=== PATIENT | female | born 1980 | race Caucasian/White ===

== ENCOUNTER → 2018-04-25 15:44 | Outpatient (CLI) | payer BC, SELFPAY ==
[2018-04-25 18:45] LABS: Estradiol 87.4 pg/mL; Progesterone Level 3.66 ng/mL (See Comment); T4 Free Direct 0.84 ng/dL (0.76-1.46); Thyroid Stim Hormone (TSH) 1.65 uIU/mL (0.358-3.74)
[2018-04-25 18:46] LABS: Hematocrit 40.6 % (37-47); Hemoglobin 13.1 g/dl (12.0-15.0); Mean Corp Hgb Conc 32.3 g/gl (32-36); Mean Corpuscular Hgb 27.2 pg (27.0-32.0); Mean Corpuscular Volume 84.4 fL (81-99); Mean Platelet Vol. 9.2 fl (6.2-12.0); Platelet Count 398 K/mm3 (150-450); RBC Distribution Width CV 12.6 % (11.6-14.6); RBC Distribution Width SD 38.7 fl (35.1-43.9); Red Blood Count 4.81 M/mm3 (4.2-5.4); White Blood Count 10.6 K/mm3 (4.4-11.0)
[2018-04-25 18:59] LABS: Scan Indicated on CBC? Y/N NO
[2018-04-25 19:10] LABS: Hemoglobin A1c 5.9 % (4.2-6.3)
[2018-04-25 19:27] LABS: hCG Titer Quant., Serum < 1 mIU/mL (<9 non-preg)
[2018-04-30 15:25] LABS: HPV Reflexed? NOT INDICATED
--- OUTSIDE RECORDS SUMMARY | 2018-06-11 21:24 | XMS RPT_ITS ---
:1980 Author Organization OHIP Care Team Providers Name Role Phone BREANA LOZANO Attending Unavailable BREANA LOZANO Referring Unavailable BREANA LOZANO Attending Unavailable BREANA LOZANO Referring Unavailable Ritika Swan Attending Unavailable Ritika Swan Attending Unavailable Ritika Swan Referring Unavailable Primay Care Physicia, No Primary Care Unavailable PROBLEMS PROBLEMS DATE TYPE CONDITION / CODE ATTENDING STATUS SOURCE 04/25/2018 Unknown N92.6 - Irregular Ritika Swan Active [facility] menstruation, [facility] unspecified / Hospital N92.6(ICD-10) Repository 04/25/2018 Unknown Z12.4 - Encounter Ritika Swan Active [facility] for screening for [facility] neoplasm of Repository cervix / Z12.4(ICD-10) PROCEDURES PROCEDURES No Procedure Records FoundRESULTS RESULTS TRANSVAGINAL Observed: 05/04/2018 Status: F Source: [place] NON- 1:48 PM [facility] REPOSITORY [facility] Imaging Services [address] [place] [address] Transvaginal Non- MR#: [id number] Acct: [id number] Name: MARY ANN SHRESTHA Rep #: [id number] : 1980 F 37 From: Roger Woods MD PCP: Care Physician, No Primary Status: REG CLI Study: Transvaginal Non- Date of Exam: 05/04/18 Exam# [id number] Ordering Dr: Ritika Swan MD STUDY: ULTRASOUND OF THE FEMALE PELVIS - COMPLETE REASON FOR EXAM: Female, 37 years old. Abnormal vaginal bleeding LMP: 03/05/2018 TECHNIQUE: Transabdominal imaging initially performed with subsequent transvaginal imaging needed for better characterization of the endometrial complex. TECHNICAL QUALITY: Adequate. COMPARISON: None. FINDINGS: The uterus is anteverted and is in a midline position. The uterus measures 10.3 x 4.6 x 5.6 cm. There is a Nabothian cyst of the cervix. The endometrium measures 5.4 mm in thickness, and is hyperechoic. There is no demonstrated endometrial mass. There is no demonstrated myometrial mass. I.U.D. - The patient does have an I.U.D., positioned in the upper uterine canal/fundus The right ovary is visualized. The right ovary measures 2.8 x 2.8 x 1.5 cm. There are multiple follicles of the right ovary without a dominant cyst. There is no visualized right adnexal mass or complex lesion. There is normal arterial and normal venous vascularity. The left ovary is visualized. The left ovary measures 3.1 x 1.5 x 1.5 cm. There is no left ovarian cyst or ovarian mass. There is no visualized left adnexal mass or complex lesion. There is normal arterial and normal venous vascularity. There is no fluid in the cul-de-sac. Visualized urinary bladder is unremarkable. US/Transvaginal Non- IMPRESSION: Normal female pelvis. IUD. Electronically Signed: Roger Woods MD at 10:29 EST , Service support , CC: No Primary Care Physician; Ritika Swan MD Supervisor Packing Room: Signed PELVIC (NON ) Observed: 05/04/2018 Status: F Source: [place] 1:48 PM [facility] [place] [facility] Imaging Services [address] [place] [address] Pelvic (Non ) MR#: [id number] Acct: [id number] Name: MARY ANN SHRESTHA Rep #: [id number] : 1980 F 37 From: Roger Woods MD PCP: Care Physician, No Primary Status: REG CLI Study: Pelvic (Non ) Date of Exam: 05/04/18 Exam# [id number] Ordering Dr: Ritika Swan MD STUDY: ULTRASOUND OF THE FEMALE PELVIS - COMPLETE REASON FOR EXAM: Female, 37 years old. Abnormal vaginal bleeding LMP: 03/05/2018 TECHNIQUE: Transabdominal imaging initially performed with subsequent transvaginal imaging needed for better characterization of the endometrial complex. TECHNICAL QUALITY: Adequate. COMPARISON: None. FINDINGS: The uterus is anteverted and is in a midline position. The uterus measures 10.3 x 4.6 x 5.6 cm. There is a Nabothian cyst of the cervix. The endometrium measures 5.4 mm in thickness, and is hyperechoic. There is no demonstrated endometrial mass. There is no demonstrated myometrial mass. I.U.D. - The patient does have an I.U.D., positioned in the upper uterine canal/fundus The right ovary is visualized. The right ovary measures 2.8 x 2.8 x 1.5 cm. There are multiple follicles of the right ovary without a dominant cyst. There is no visualized right adnexal mass or complex lesion. There is normal arterial and normal venous vascularity. The left ovary is visualized. The left ovary measures 3.1 x 1.5 x 1.5 cm. There is no left ovarian cyst or ovarian mass. There is no visualized left adnexal mass or complex lesion. There is normal arterial and normal venous vascularity. There is no fluid in the cul-de-sac. Visualized urinary bladder is unremarkable. US/Pelvic (Non ) IMPRESSION: Normal female pelvis. IUD. Electronically Signed: Roger Woods MD at 10:29 EST , Service support , CC: No Primary Care Physician; Ritika Swan MD Supervisor Packing Room: Signed FREE T3 Collected: 04/25/2018 Status: F Source: [place] 3:48 PM [facility] [place] TYPE CODE TESTS RESULT OUT OF RANGE REFERENCE UNITS LAB L501.65998 2.18-3.98 pg/mL Normal FREE T3 3.0 Performed By: #### L501.62454, L501.9520, L506.0400, L3300.1750 #### [facility] [address] [place], [place], [id number] THYROID STIM HORMONE Collected: 04/25/2018 Status: F Source: [place] (TSH) 3:48 PM [facility] [place] [facility] TYPE CODE TESTS RESULT OUT OF RANGE REFERENCE UNITS LAB L501.9520 0.358-3.74 uIU/mL Normal TSH 1.65 Performed By: #### L501.30968, L501.9520, L506.0400, L3300.1750 #### [facility] [address] [place], [place], [address] T4 FREE DIRECT Collected: 04/25/2018 Status: F Source: [place] 3:48 PM [facility] [place] TYPE CODE TESTS RESULT OUT OF RANGE REFERENCE UNITS LAB L506.0400 0.76-1.46 ng/dL Normal T4 FREE 0.84 DIRECT Performed By: #### L501.99783, L501.9520, L506.0400, L3300.1750 #### [facility] [address] [place], [place], [address] ESTRADIOL Collected: 04/25/2018 Status: F Source: [place] 3:48 PM [facility] [place] [facility] TYPE CODE TESTS RESULT OUT OF RANGE REFERENCE UNITS LAB L3300.1750 pg/mL Normal ESTRADIOL 87.4 Result Comment: NORMAL REFERENCE RANGES FEMALE FOLLICULAR 21.4 - 164.8 pg/mL MID-CYCLE PEAK 49.9 - 367.2 pg/mL LUTEAL 40.2 - 259.0 pg/mL POST-MENOPAUSAL ON MHT <11.0 - 462.1 pg/mL NOT ON MHT <11.0 - 58.3 pg/mL MALE <11.0 - 52.5 pg/mL NOTE: [facility] HAS CONFIRMED THE DRUG FULVETRANT (FASLODEX) MAY CAUSE FALSELY ELEVATED ESTRADIOL RESULTS WHEN USING THIS TEST METHOD. IF PATIENT IS TAKING FULVESTRANT AN ALTERNATIVE METHOD SHOULD BE USED TO DETERMINE ESTRADIOL CONCENTRATION. Performed By: #### L501.11316, L501.9520, L506.0400, L3300.1750 #### [facility] [address] [place], [address] TESTOSTERONE, SERUM TOTAL Collected: 04/25/2018 Status: F Source: [place] 3:48 PM [facility] [place] TYPE CODE TESTS RESULT OUT OF REFERENCE UNITS RANGE LAB L509.3000 ng/dL Testosterone Normal 20.15 Result Comment: NORMAL REFERENCE RANGES MALE AGE <50 123.06 - 813.86 ng/dL MALE AGE >50 89.98 - 780.10 ng/dL FEMALE PREMENOPAUSE AGE 21 - 60 9.01 - 47.94 ng/dL FEMALE POSTMENOPAUSE AGE 45 - 89 <7.00 - 45.62 ng/dL REFERENCE RANGE AND METHODOLOGY CHANGED 05/03/2017 Performed By: #### L509.3000, L509.4001 #### [facility] [address] [place], [address] PROGESTERONE LEVEL Collected: 04/25/2018 Status: F Source: [place] 3:48 PM [facility] [place] [facility] TYPE CODE TESTS RESULT OUT OF REFERENCE UNITS RANGE LAB L509.4001 See Comment ng/mL Progesterone Normal 3.66 Result Comment: Progesterone Reference Table: UNITS Female: Follicular 0.15 - 1.40 ng/mL Luteal 3.34 - 25.56 ng/mL Mid-luteal 4.44 - 28.03 ng/mL Postmenopausal 0.0 - 0.73 ng/mL : 1st Trimester 11.22 - 90.00 ng/mL 2nd Trimester 25.55 - 89.40 ng/mL 3rd Trimester 48.40 -422.50 ng/mL Performed By: #### L509.3000, L509.4001 #### [facility] [address] [facility] [address] [place], [place], [id number] CBC-COMPLETE BLOOD CNT Collected: 04/25/2018 Status: F Source: [place] NO DIFF 3:48 PM [facility] [place] TYPE CODE TESTS RESULT OUT OF RANGE REFERENCE UNITS LAB L100.1000 4.4-11.0 K/mm3 Normal WBC 10.6 LAB L100.1200 4.2-5.4 M/mm3 Normal RBC 4.81 LAB L100.1300 12.0-15.0 g/dl Normal HGB 13.1 LAB L100.1400 37-47 % Normal HCT 40.6 LAB L100.1500 81-99 fL Normal MCV 84.4 LAB L100.1600 27.0-32.0 pg Normal MCH 27.2 LAB L100.1700 32-36 g/gl Normal MCHC 32.3 LAB L100.1810 11.6-14.6 % Normal RDW CV 12.6 LAB L100.1820 35.1-43.9 fl Normal RDW SD 38.7 LAB L100.1900 150-450 K/mm3 Normal PLT 398 LAB L100.2000 6.2-12.0 fl Normal MPV 9.2 Performed By: #### L100.0500 #### [facility] [address], [place], [id number] HEMOGLOBIN A1C Collected: 04/25/2018 Status: F Source: [place] 3:48 PM [facility] [place] TYPE CODE TESTS RESULT OUT OF RANGE REFERENCE UNITS LAB L501.9985 4.2-6.3 % Normal HGB A1C 5.9 Performed By: #### L501.9985 #### [facility] [address] [place], [place], [id number] HCG TITER QUANT., Collected: 04/25/2018 Status: F Source: [place] SERUM 3:48 PM [facility] [place] Order Comment: Date of Last Menstrual Period? 03/05/18 TYPE CODE TESTS RESULT OUT OF RANGE REFERENCE UNITS LAB L700.8000 <9 non-preg mIU/mL Normal HCG < 1 QUANT. 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 of containers..01 ThinPrep Vial TYPE CODE TESTS RESULT OUT OF RANGE REFERENCE UNITS LAB L7400.0800 . Normal DIAGN Comment Result Comment: NEGATIVE FOR INTRAEPITHELIAL LESION AND MALIGNANCY. LAB L7400.0900 . Normal ADEQ Comment Result Comment: Satisfactory for evaluation. Endocervical and/or squamous metaplastic cells (endocervical component) are present. LAB L7400.1400 . Normal PERFORM Comment Result Comment: Bree Soto Pack Room Operator (ASCP) LAB L7400.2575 . Normal TEST METHOD Comment Result Comment: This liquid based ThinPrep(R) pap test was screened with the use of an image guided system. LAB L7400.2600 . Normal . COMM LAB L7400.2700 . Normal PAPSMR Comment Result Comment: The Pap smear is a screening test designed to aid in the detection of premalignant and malignant conditions of the uterine cervix. It is not a diagnostic procedure and should not be used as the sole means of detecting cervical cancer. Both false-positive and false-negative reports do occur. LAB L7400.2800 . Normal HPV RFLX Comment Result Comment: The HPV DNA reflex criteria were not met with this specimen result therefore, no HPV testing was performed. Performed at: - [facility] [id number] Manager Distribution: Veronica Gamino MD, Phone: [phone] Performed By: #### L7400.0350 #### [facility] (refer to report for specific site) refer to report for address and phone number PROGRESS Observed: 01/24/2018 Status: COMPLETED Source: [place] 4:06 PM [facility] REPOSITORY O ID: [id number] Author: Breana Lozano Service: (none) Author Type: Physician Type: Progress Notes Filed: 01/24/2018 5:19 PM Note Text: Headache Center - Follow-up Visit ASSESSMENT: 37 year old female with history significant for depression, anxiety, HTN, migraine without aura, and incidental borderline Chiari. Her migraines have remained significantly improved from a very high frequency on Topamax, but have again converted back to chronic migraine in the setting of trying to wean off Topamax (some side effects and prefers no pills). ? PLAN: (Please see typed patient instructions for detailed instructions) --->?Acute Treatment: -Maxalt vs. Frova. ?? --->?Preventive Treatment: -Change Topamax to Trokendi for now. -Options discussed, Botox, Aimovig. Would like to try Botox, so we'll send prior auth. ?? --->?Headache education was done. Discussed lifestyle modification including increased oral hydration, decreased caffeine, exercise and stress management. Discussed treatment options including preventive and acute medications, natural supplements. Discussed medication overuse headache and to limit use of acute treatments to no more than 2 days/week or 10 days/month. Discussed medication side effects, adverse reactions and drug interactions. Written educational materials and patient instructions outlining all of the above were given. ?? --->?Follow-up: When Botox approved. Last visit: 07/19/17 Interval Headache Hx: Was doing very well, about 2 migraines per month. We have been trying to wean off Topamax, but only down to 50 mg qhs from 100 mg bid. Migraines have returned to daily since coming down on the dose. Was having some cognitive and paresthesia side effects, and prefers no pills. MEDS: Current Outpatient Prescriptions: cyanocobalamin, vitamin B-12, (VITAMIN B-12 ORAL) Take by mouth once daily. frovatriptan (FROVA) 2.5 mg tablet Take 1 tab at migraine onset. May repeat once in 2 hours if needed. Give max allowed per insurance. rizatriptan (MAXALT) 10 mg tablet 1 tab at earliest sign of migraine. May repeat once in 2 hours if needed. Give max allowed per insurance. topiramate (TOPAMAX) 100 mg tablet Take 1 tablet by mouth twice daily. levonorgestrel (MIRENA) 20 mcg/24 hour (5 years) IUD 1 Each by INTRAUTERINE route one time only. No current facility-administered medications for this visit. REVIEW OF SYSTEMS: Review of system : unchanged from the previous visit (sleep patterns, mood, energy, appetite, stress, exercising). Physical Examination: BP 129/92 Pulse 91 Wt 107.5 kg (237 lb) BMI 41.98 kg/m? GEN: Alert. NAD. Normal affect. Cooperative. NEUROLOGICAL: Alert and oriented. Attentive. Thought process and content unremarkable. Follows commands appropriately. Speech fluent. Stable primary gait. Breana Lozano DO [facility] [place] Department of Neurology [place] [facility] [place] - [facility] Chronic Pain Medicine [address] [place] [address] Pager [phone] Total time in minutes spent with patient, reviewing records, imaging, labs, and documentin with more than 50% of the time spent in patient education/counselling/coordinating care with the patient. cc: Flora Mari MD [address] [facility] [place] [address] CNOV Observed: 01/24/2018 Status: COMPLETED Source: [place] 3:40 PM [facility] REPOSITORY Office Visit (NEURBR) MARY ANN SHRESTHA ([id number]) 1980 F Date Time Provider Department 01/24/18 3:40 PM BREANA LOZANO During your visit today, we recorded the following information about you: Pulse Blood pressure Weight 91/minute 129/92 107.5 kg Braena Lozano DO 01/24/2018 5:19 PM Signed Headache Center - Follow-up Visit ASSESSMENT: 37 year old female with history significant for depression, anxiety, HTN, migraine without aura, and incidental borderline Chiari. Her migraines have remained significantly improved from a very high frequency on Topamax, but have again converted back to chronic migraine in the setting of trying to wean off Topamax (some side effects and prefers no pills). ? PLAN: (Please see typed patient instructions for detailed instructions) --->?Acute Treatment: -Maxalt vs. Frova. ?? --->?Preventive Treatment: -Change Topamax to Trokendi for now. -Options discussed, Botox, Aimovig. Would like to try Botox, so we'll send prior auth. ?? --->?Headache education was done. Discussed lifestyle modification including increased oral hydration, decreased caffeine, exercise and stress management. Discussed treatment options including preventive and acute medications, natural supplements. Discussed medication overuse headache and to limit use of acute treatments to no more than 2 days/week or 10 days/month. Discussed medication side effects, adverse reactions and drug interactions. Written educational materials and patient instructions outlining all of the above were given. ?? --->?Follow-up: When Botox approved. Last visit: 07/19/17 Interval Headache Hx: Was doing very well, about 2 migraines per month. We have been trying to wean off Topamax, but only down to 50 mg qhs from 100 mg bid. Migraines have returned to daily since coming down on the dose. Was having some cognitive and paresthesia side effects, and prefers no pills. MEDS: Current Outpatient Prescriptions: cyanocobalamin, vitamin B-12, (VITAMIN B-12 ORAL) Take by mouth once daily. frovatriptan (FROVA) 2.5 mg tablet Take 1 tab at migraine onset. May repeat once in 2 hours if needed. Give max allowed per insurance. rizatriptan (MAXALT) 10 mg tablet 1 tab at earliest sign of migraine. May repeat once in 2 hours if needed. Give max allowed per insurance. topiramate (TOPAMAX) 100 mg tablet Take 1 tablet by mouth twice daily. levonorgestrel (MIRENA) 20 mcg/24 hour (5 years) IUD 1 Each by INTRAUTERINE route one time only. No current facility-administered medications for this visit. REVIEW OF SYSTEMS: Review of system : unchanged from the previous visit (sleep patterns, mood, energy, appetite, stress, exercising). Physical Examination: BP 129/92 Pulse 91 Wt 107.5 kg (237 lb) BMI 41.98 kg/m? GEN: Alert. NAD. Normal affect. Cooperative. NEUROLOGICAL: Alert and oriented. Attentive. Thought process and content unremarkable. Follows commands appropriately. Speech fluent. Stable primary gait. Breana Lozano DO [facility] [place] Department of [facility] [address] [place] [address] Pager [phone] Total time in minutes spent with patient, reviewing records, imaging, labs, and documentin with more than 50% of the time spent in patient education/counselling/coordinating care with the patient. cc: Flora Mari MD [address] [place], [place] [id number] Referring Provider: BREANA LOZANO [[id number]] Allergies As of Date: 01/24/2018 (No Known Allergies) Date Reviewed: 01/24/2018 Reviewed by: Breana Lozano - Fully Assessed Reason for Visit: Follow Up [171] Cmt: migraines Primary Visit Diagnosis:Chronic migraine without aura, with intractable migraine, so stated, with status migrainosus [G43.711] Other Visit Diagnosis:Intractable chronic migraine without aura and without status migrainosus [G43.719] Order(s):topiramate (TROKENDI XR) 100 mg [id number] 100 mg at bedtime and continue.Disp: 30 capsuleRfl: 11 rizatriptan (MAXALT) 10 mg tablet1 tab at earliest sign of migraine. May repeat once in 2 hours if needed. Give max allowed per insurance.Disp: 9 tabletRfl: 11 frovatriptan (FROVA) 2.5 mg tabletTake 1 tab at migraine onset. May repeat once in 2 hours if needed. Give max allowed per insurance.Disp: 9 tabletRfl: 11 Prescriptions as of 01/24/2018 Sig: VITAMIN B-12 ORAL Take by mouth once daily. RIZATRIPTAN 10 MG TABLET 1 tab at earliest sign of leona* FROVATRIPTAN 2.5 MG TABLET Take 1 tab at migraine onset.* LEVONORGESTREL 20 MCG/24 HR (* 1 Each by INTRAUTERINE route * TOPIRAMATE XR 100 MG CAPSULE,* Take 100 mg at bedtime and co* Problem List As Of Date 01/24/2018 Noted Resolved Gastroesophageal reflux disease [K21.9] INVALID FOR* Migraine without aura and without status migrai*INVALID FOR* Occipital neuralgia of right side [M54.81] INVALID FOR* Vitamin D deficiency [E55.9] INVALID FOR* Chronic migraine without aura, with intractable*INVALID FOR* Intractable chronic migraine without aura and w*INVALID FOR* Prescriptions ordered this encounter Disp Refills Start End TOPIRAMATE XR 100 MG CAPSULE,EXTENDE* 30 c* 11 01/24/2018 Class: Print RX Sig: Take 100 mg at bedtime and continue. RIZATRIPTAN 10 MG TABLET 9 ta* 11 01/24/2018 Si tab at earliest sign of migraine. May repeat once in 2 hours if needed. Give max allowed per insurance. FROVATRIPTAN 2.5 MG TABLET 9 ta* 11 01/24/2018 Sig: Take 1 tab at migraine onset. May repeat once in 2 hours if needed. Give max allowed per insurance. Medications Discontinued During This Encounter topiramate (TOPAMAX) 100 mg tablet 60 t* 11 03/01/2017 01/24/2018 Route: ORAL Sig: Take 1 tablet by mouth twice daily. Disc: Reason for discontinue is not on file. rizatriptan (MAXALT) 10 mg tablet 9 ta* 11 03/01/2017 01/24/2018 Si tab at earliest sign of migraine. May repeat once in 2 hours if needed. Give max allowed per insurance. Disc: Reason for discontinue is not on file. frovatriptan (FROVA) 2.5 mg tablet 9 ta* 11 05/04/2017 01/24/2018 Sig: Take 1 tab at migraine onset. May repeat once in 2 hours if needed. Give max allowed per insurance. Disc: Reason for discontinue is not on file. Follow-up and Disposition History Recorded Encounter Status:Closed by BREANA LOZANO DO on 01/24/18 PROGRESS Observed: 07/19/2017 Status: COMPLETED Source: [place] 4:19 PM [facility] REPOSITORY O ID: [id number] Author: Breana Lozano Service: (none) Author Type: Physician Type: Progress Notes Filed: 07/19/2017 5:07 PM Note Text: Headache Center - Follow-up Visit ASSESSMENT: 36 year old female with history significant for depression, anxiety, HTN, migraine without aura, and incidental borderline Chiari. Her migraines have remained significantly improved from a very high frequency on Topamax. ? PLAN: (Please see typed patient instructions for detailed instructions) ---> Acute Treatment: -Maxalt vs. Frova. ?? ---> Preventive Treatment: -Topamax 100 mg bid. We discussed how to try to wean off when as she thinks she is ready to try. ?? ---> Headache education was done. Discussed lifestyle modification including increased oral hydration, decreased caffeine, exercise and stress management. Discussed treatment options including preventive and acute medications, natural supplements. Discussed medication overuse headache and to limit use of acute treatments to no more than 2 days/week or 10 days/month. Discussed medication side effects, adverse reactions and drug interactions. Written educational materials and patient instructions outlining all of the above were given. ?? ---> Follow-up: 6 months Last visit: 08/10/16 Interval Headache Hx: Doing well. Getting 2-3 migraines per month. The migraines that start in the R occipital do not respond to Maxalt, but they do respond to Frova. These are also longer duration migraines. Maxalt works for the R frontal onset migraines, but so much for the posterior onset migraines. We tried Frova because she started to have long duration migraines. MEDS: Current Outpatient Prescriptions: frovatriptan (FROVA) 2.5 mg tablet Take 1 tab at migraine onset. May repeat once in 2 hours if needed. Give max allowed per insurance. rizatriptan (MAXALT) 10 mg tablet 1 tab at earliest sign of migraine. May repeat once in 2 hours if needed. Give max allowed per insurance. topiramate (TOPAMAX) 100 mg tablet Take 1 tablet by mouth twice daily. levonorgestrel (MIRENA) 20 mcg/24 hour (5 years) IUD 1 Each by INTRAUTERINE route one time only. No current facility-administered medications for this visit. REVIEW OF SYSTEMS: Review of system : unchanged from the previous visit (sleep patterns, mood, energy, appetite, stress, exercising). Physical Examination: BP 129/87 Pulse 84 Wt 103.9 kg (229 lb) BMI 40.57 kg/m2 GEN: Alert. NAD. Normal affect. Cooperative. NEUROLOGICAL: Alert and oriented. Attentive. Thought process and content unremarkable. Follows commands appropriately. Speech fluent. Stable primary gait. Breana Lozano D.O. [facility] [place] [facility] Department of Neurology Pager: [phone] Total time in minutes spent with patient, reviewing records, imaging, labs, and documentin with more than 50% of the time spent in patient education/counselling/coordinating care with the patient. cc: Flora Mari MD [address] [place] [address] CNOV Observed: 07/19/2017 Status: COMPLETED Source: [facility] 4:00 PM [facility] Office Visit (NEURBR) MARY ANN SHRESTHA ([id number]) 1980 F Date Time Provider Department 07/19/17 4:00 PM BREANA LOZANO NEURBR During your visit today, we recorded the following information about you: Pulse Blood pressure Weight 84/minute 129/87 103.9 kg Breana Lozano DO 07/19/2017 5:07 PM [facility] - Follow-up Visit ASSESSMENT: 36 year old female with history significant for depression, anxiety, HTN, migraine without aura, and incidental borderline Chiari. Her migraines have remained significantly improved from a very high frequency on Topamax. ? PLAN: (Please see typed patient instructions for detailed instructions) ---ANDgt; Acute Treatment: -Maxalt vs. Frova. ?? ---ANDgt; Preventive Treatment: -Topamax 100 mg bid. We discussed how to try to wean off when as she thinks she is ready to try. ?? ---ANDgt; Headache education was done. Discussed lifestyle modification including increased oral hydration, decreased caffeine, exercise and stress management. Discussed treatment options including preventive and acute medications, natural supplements. Discussed medication overuse headache and to limit use of acute treatments to no more than 2 days/week or 10 days/month. Discussed medication side effects, adverse reactions and drug interactions. Written educational materials and patient instructions outlining all of the above were given. ?? ---ANDgt; Follow-up: 6 months Last visit: 08/10/16 Interval Headache Hx: Doing well. Getting 2-3 migraines per month. The migraines that start in the R occipital do not respond to Maxalt, but they do respond to Frova. These are also longer duration migraines. Maxalt works for the R frontal onset migraines, but so much for the posterior onset migraines. We tried Frova because she started to have long duration migraines. MEDS: Current Outpatient Prescriptions: frovatriptan (FROVA) 2.5 mg tablet Take 1 tab at migraine onset. May repeat once in 2 hours if needed. Give max allowed per insurance. rizatriptan (MAXALT) 10 mg tablet 1 tab at earliest sign of migraine. May repeat once in 2 hours if needed. Give max allowed per insurance. topiramate (TOPAMAX) 100 mg tablet Take 1 tablet by mouth twice daily. levonorgestrel (MIRENA) 20 mcg/24 hour (5 years) IUD 1 Each by INTRAUTERINE route one time only. No current facility-administered medications for this visit. REVIEW OF SYSTEMS: Review of system : unchanged from the previous visit (sleep patterns, mood, energy, appetite, stress, exercising). Physical Examination: BP 129/87 Pulse 84 Wt 103.9 kg (229 lb) BMI 40.57 kg/m2 GEN: Alert. NAD. Normal affect. Cooperative. NEUROLOGICAL: Alert and oriented. Attentive. Thought process and content unremarkable. Follows commands appropriately. Speech fluent. Stable primary gait. Breana P. Lozano, D.O. [facility] Department of Neurology Pager: [phone] Total time in minutes spent with patient, reviewing records, imaging, labs, and documentin with more than 50% of the time spent in patient education/counselling/coordinating care with the patient. cc: Flora Mari MD [address] [place] [address] Breana Lozano DO 07/19/2017 4:31 PM Signed Acute Headache Treatment: (What to take ANDquot;as-neededANDquot; for headache) 1) Triptan at earliest sign of migraine. May repeat once in 2 hours. Do not use more than 10 days per month. Headache Preventive Treatment (What to take on a daily basis to try to lessen frequency and/or intensity of headache): *Please keep in mind that it takes 4-6 weeks for the medication to start working well and 2-3 months at the appropriate dose before deciding if it will be useful or not. If it is not helping at all by this time, then we will discuss other medications to try. Supplements may take 3-6 months until you see full effect. 1) Decrease Topamax by 50 mg every week alternating between morning, then bedtime, then morning, then bedtime. When you get down to 50 mg at bedtime for 1 week, then do 50 mg at bedtime every other night for 1 week and then stop. 2) Consider adding supplements: Magnesium citrate (other forms ok too) 400-800 mg daily +/- Coenzyme Q10 200 mg (or 150 mg) twice daily (or Qunol brand 100 mg daily) +/- Riboflavin (Vitamin B2) 400 mg daily (or 200 mg twice daily). You can sometimes buy supplements cheaper (especially Coenzyme Q10) at www.[employer] or at [employer]. General Headache Instructions: 1) Maintain a headache diary; learn to identify and avoid triggers. 2) Limit use of acute treatments (pzkz-dkm-bkxhpkd medications, triptans, etc.) to no more than 2 days per week or 10 days per month to prevent medication overuse headache (rebound headache). 3) Follow a regular schedule (including weekends and holidays) for the next 6 weeks: A) Don't skip meals. B) 8 hours of sleep nightly. C) Avoid the following common headache triggers: -Caffeine (coffee, chocolate, tea, cola/pop/soda (7-up, Sprite, Paula Mist, Jeny Deepa, Mug/A+W Root Beer, Minute Maid [place], Slice are okay)) -Foods containing nitrates (deli meat, ham, song, sausage, hot dogs) -Tyramine (aged cheese; can only have Micronesian cheese, cottage cheese, Velveeta and fresh mozarella (most pizza uses aged mozarella)) -MSG (Japanese/ foods, Doritos, all flavored chips and Ramen noodles) -Nutrasweet and artificial sweeteners D) Minimize stress. E) Exercise 30 minutes per day. Being overweight is associated with a 5 times increased risk of chronic migraine. F) Keep well hydrated and drink 6-8 glasses of water per day. 4) Initiate non-pharmacologic measures at the earliest onset of your headache. A) Rest and quiet in a cool, dark environment. B) Relax and reduce stress. C) Cold compress to head (place a dry washcloth to forehead, cover with a blue freezer packet and use a headband to press the freezer packet across the forehead and temples). 5) Don't wait!! Take the maximum allowable dosage of prescribed medication at the very earliest sign of headache. 6) Compliance: Take prescribed medication regularly as directed and at the first sign of a headache. 7) Communicate: Call your physician when problems arise, especially if your headaches change, increase in frequency/severity, or become associated with neurological symptoms (weakness, numbness, slurred speech, etc.). 8) Headache/pain management therapies: Consider various complementary methods, including medication, behavioral therapy, psychological counselling, biofeedback, massage therapy, acupuncture, and other modalities. Such measures may reduce the need for medications. Counseling for pain management, where patients learn to function and ignore/minimize their pain, seems to work very well. 9) Recommend changing family's attention and focus away from patient's headaches. Instead, emphasize daily activities. If first question of day is 'How are your headaches/Do you have a headache today?', then patient will constantly think about headaches, thus making them worse. Goal is to re-direct attention away from headaches, toward daily activities and other distractions. Avoiding Medication Overuse Headache (Rebound Headache): Based on current research, the types of medications and their frequency of use which converts a previously episodic headache (particularly migraine) into a chronic daily headache (any headache occurring 15 or more days per month for at least 4 hours per day) are as follows: ---ANDgt; Over the counter medications, NSAIDS and combination analgesics: -More than 2 days per week, or more than 10 days per month. -These include medications such as Acetaminophen (Tylenol), Naproxen (Aleve), Ibuprofen (Advil, Motrin), Acetaminophen/Caffeine (Excedrin), Acetaminophen/Dichloralphenazone/Isometheptene (Midrin), Aspirin (ok to continue if taking for medical reasons), cold remedies and sleep-promoting agents, among others. ---ANDgt; Triptans: -More than 2 days per week, or more than 10 days per month. -These include Sumatriptan (Imitrex), Sumatriptan/Naproxen (Treximet), Rizatriptan (Maxalt), Almotriptan (Axert), Zolmitriptan (Zomig), Eletriptan (Relpax), Naratriptan (Amerge), Frovatriptan (Frova). ---ANDgt; Opiates/Opioids (Narcotics): -8 days or more per month. Some research suggests that even infrequent use of these medications makes migraine specific medications such as triptans and NSAIDs less effective. -These include any narcotics such as Acetaminophen/Hydrocodone (Vicodin), Acetaminophen/Oxycodone (Percocet), Acetaminophen/Propoxyhene (Darvocet), Acetaminophen/Codeine (Tylenol #3, #4), Tramadol (Ultram), Acetaminophen/Tramadol (Ultracet), Oxycodone (OxyContin), Hydromorphone (Dilaudid), Fentanyl, Butorphanol (Stadol), Morphine or any form of a Morphine derivative. ---ANDgt; Butalbital containing medications: -5 or more days per month. As you can see, these are the worst offenders. -These include Acetaminophen/Butalbital/Caffeine (Fioricet, Esgic) Acetaminophen/Butalbital/Caffeine/Codeine (Fioricet with Codeine), Aspirin/Butalbital/Caffeine (Fiorinal), Aspirin/Butalbital/Caffeine/Codeine (Fiorinal with Codeine). Vitamins and herbs that show potential for migraine prevention: Magnesium: Magnesium (250 mg twice a day or 500 mg at bed) has a relaxant effect on smooth muscles such as blood vessels. We often give intravenous magnesium to patients who come into the emergency department for migraine because it helps to break the migraine. Three trials found 40-90% average headache reduction when used as a preventative. Magnesium also demonstrated the benefit in menstrually related migraine. Magnesium is part of the messenger system in the serotonin cascade and it is a good muscle relaxant. It is also useful for constipation which can be a side effect of other medications used to treat migraine. Good sources include nuts, whole grains, and tomatoes. Coenzyme Q10: This is present in almost all cells in the body and is critical component for the conversion of energy. Recent studies have shown that a nutritional supplement of CoQ10 can reduce the frequency of migraine attacks by improving the energy production of cells as with riboflavin. Doses of 200 mg (or 150 mg) twice a day have been shown to be effective. Riboflavin (Vitamin B2): 200 mg twice a day (or 400 mg daily). This vitamin assists nerve cells in the production of ATP, a principal energy storing molecule. It is necessary for many chemical reactions in the body. There have been at least 3 clinical trials of riboflavin using 400 mg per day all of which suggested that migraine frequency can be decreased. All 3 trials showed significant improvement in over half of migraine sufferers. The supplement is found in bread, cereal, milk, meat, and poultry. Most Americans get more riboflavin than the recommended daily allowance, however riboflavin deficiency is not necessary for the supplements to help prevent headache. Feverfew: Feverfew is a common garden herb [place] and popular in [place] as a treatment for disorders typically controlled by aspirin. The mechanism of action is unknown but is believed to be related to a chemical called parthenolide which helps the body use serotonin more effectively. Serotonin helps prevent migraine and assists with resolution when it occurs. Parthenolide also inhibits the release of histamine which is linked to pain and inflammation. Consistency of active ingredients in different products can be a problem. Some formulations don't have the active ingredient (parthenolide) that prevents migraine. A parthenolide content of 0.2% is generally recommended. Typical dosage is one capsule 3 times a day. Butterbur: This is an extract derived from the petisides orlyus root, which has been used for medicinal purposes since ancient times. A recent study found that 75 mg daily given over 4 months reduced headache frequency by 50% or more in over two thirds of the 245 patient studied. The 50 mg dose showed no significant effect. Side effects were infrequent, and the most common and unusual includes burping/belching. Raw butterbur root contains toxic chemicals that must be filtered out during the manufacturing process. To be sure you are choosing a safe product. Look for a formulation that does not contain pyrrolizidine alkaloids which are toxic to the liver. Melatonin: Increasing evidence shows correlation between melatonin secretion and headache conditions. Melatonin supplementation has shown decreased headache intensity and duration. It is widely used as a sleep aid. Sleep is nature's way of dealing with migraine. A dose of 3 mg is recommended to start for headaches including cluster headache. Higher doses up to 15 mg has been reviewed for use in Cluster headache and have been used. The rationale behind using melatonin for cluster is that many theories regarding the cause of Cluster headache center around the disruption of the normal circadian rhythm in the brain. This helps restore the normal circadian rhythm. It should be taken at least 2 hours before bedtime. Jeny: Jeny has a small amount of anti-histamine and anti-inflammatory action which may help headache. It is primarily used for nausea and may aid in the absorption of other medications. HEADACHE EXPECTATIONS: There are many types of headaches, and only a rare few in which complete relief can be expected. In general, there is no cure for headache, especially migraine based headaches. There is nothing available that completely prevents headaches from occurring, breaking through, or having periodic flare-ups and fluctuations. Regardless of what you are using on a daily basis for prevention, episodic headaches should still be expected, and periods where frequency may escalate and fluctuate are unavoidable. There is no quick fix for most headaches. Furthermore, the longer you have had high frequency headaches (such as chronic daily headache), the longer it will likely take to expect any improvement. In fact, some people will never improve, regardless of how many medications or other treatments we try. Our treatment strategy is to evaluate for possible causes of your headache, although testing is usually always normal, even in cases of daily continuous headaches for years. Most types of headache such as migraine are electrical brain disorders (similar to how epilepsy is an electrical brain disorders). Therefore, there is no testing that will reveal this ANDquot;dysfunctional electrical circuitryANDquot; such on MRI, or other testing. We try to find a medication that may help lessen the frequency and/or severity of your headaches. The goal is not to completely stop them from happening, although if that happens, great! Different people respond to different medications, and some people just don't respond to anything, so it's usually a matter of trying different options. We can not predict if or when exactly you will respond to a treatment that we provide. Preventive headache medications take 4-6 weeks to start working, and 2-3 months to see full effect, assuming you reach an effective dose. Therefore, calling or messaging frequently because you have a headache flare prior to the 3 month renaldo is unlikely to change anything, and unfortunately there is nothing available that will expedite this, so please try to avoid this. Our recommendation will generally be to give it adequate time first. If you are unable to wait it out for medications to work, we can also try IV infusions for some temporary relief. Or, we offer our 3 week outpatient chronic daily headache program (IMATCH) to help you better learn how to function and deal with chronic headache issues. In general, the best that preventive medications or other treatments (including Botox) are able to offer in migraine management (variable in other headache types) is a 50% improvement in frequency and/or severity of headache. That is our goal, and any additional benefit is considered a bonus. Some people do significantly better than this, others do not get close to this. Therefore, if your headaches are not improving by at least 3 months on your preventive strategy, contact us and we can discuss further adjustments. Keep in mind that complete headache cure is not a realistic expectation. MYCHART, PHONE CALLS, TESTING RESULTS: Please understand that we rely heavily and work closely with our nursing team to assist us in managing your telephone calls, test results, and refills. Due to the volume of daily phone calls, messages, and schedules, it is impossible for us to personally call patients back through the day. We do receive your messages, which are very important to us, and respond most often through our nursing team to help relay our message and response back to you. The main way of communication is by MyChart rather than phone lines, so if you have not signed up, please do so. MyChart is also the way that you can review your labs and testing. We are not able to contact everyone to tell them results are normal. If you do not hear back from us regarding testing you have had, it should be considered normal or within normal range. If you have any questions about the results, you are free to message us. [employer] is meant for simple questions regarding medications, possible side effects, or other simple straight forward questions in limited sentences, rather than multiple paragraphs of discussion. [employer] is not meant for, safe, or efficient for these complex questions, extensive questions, extensive medication adjustments, complex new symptoms or concerns. These issues beyond simple questions require a follow up visit with myself, one of our physician assistants, nurse practitioners, or a Virtual Visit via computer or smart phone, as detailed further down. REFILLS: Please pay attention to when your refills will need to be renewed. Due to the volume of phone calls daily, this could potentially take a few days, although we certainly try to honor your refill requests as soon as we can. You should call at least 1 week in advance of needing a refill to ensure you do not run out of medication. Keep in mind that refill requests on Fridays may not be filled until the following week. BOTOX: If you are receiving Botox treatments, please check with your insurance company before and following each treatment appointment to ensure that you still have pre-approved coverage for your next Botox appointment in 3 months. If your coverage has run out, and a new prior authorization is required to continue Botox treatment, please call our office and let us know so that we can file the paperwork. Telemedicine is the newest ?virtual visit? that we are now offering to allow you to have a [id number] conversation with your doctor for 15 minutes (although this can extend further as needed), without the need for driving to our clinic, paying for parking, paying copays, paying for travel, stopping over for meals, etc. This is a self-pay option for which you will be charged $49, and you will need a computer or smartphone (with a built-in camera), should you wish to avail of this convenient alternative. If you are interested in the telemedicine visit, please let me know and we will facilitate that visit. I have included more detailed information below on how the virtual visit works. We look forward to serving your needs and answering your questions! REASON FOR A VIRTUAL ONLINE APPOINTMENT In order to provide you with the best care possible, we have recently begun using a technology to connect patients, providers, and family members through a ?Learn[employer]?-like connection for live audio and video communication. We are now using this as a way for patients to have a visit with a provider without the added costs of having to travel to our facility. This service, [facility], is easily accessible through your mobile device or a desktop/laptop with a browser and internet connection. HOW DO I GET STARTED? ON A DESKTOP OR LAPTOP COMPUTER WITH A WEBCAM CONNECTED: 1. Go to the URL: [email or web address] 2. Click on Sign Up and Create a patient account for yourself. 3. Please also follow the links to ?Test My Computer?. 4. Follow the steps suggested, testing your Internet Speed, Webcam, Microphone, Speaker, and your video software. 5. Please make sure your video software is up-to-date. This is a safe, [facility] approved download, and will not harm your computer. ON AN IPHONE, IPAD, OR ANDROID DEVICE: 1. Open up the [employer] or [employer] and search [facility] Online. 2. Download and Install the Application. 3. Tap on Sign Up and create a patient account for yourself. 4. Please use an e-mail address that you frequently check, as you will receive an e-mail appointment from [facility]. Find our user guide, here: [email or web address] Important: Don?t forget your password you choose during setup. For your personal records: Your E-mail Address Here: Your Password Here: YOUR ONLINE VIRTUAL VISIT 1. Once the visit is scheduled, you should plan to begin your visit at least 15 minutes prior to the start of your visit. 2. You can begin by opening the email you received to schedule this visit, click on ?Start Visit,? agree to the Terms of Use, and wait for your visit to start! 3. Agree to the Terms of Use, and wait for your visit to start! 4. When you join the virtual visit you will be connected to the provider. Please call [phone] prior to your visit if you have any questions regarding technology! Referring Provider: BREANA LOZANO [[id number]] Allergies As of Date: 07/19/2017 (No Known Allergies) Date Reviewed: 07/19/2017 Reviewed by: Breana Lozano - Fully Assessed Reason for Visit: Follow Up [171] Cmt: migraines Primary Visit Diagnosis:Migraine without aura and without status migrainosus, not intractable [G43.009] Other Visit Diagnosis:Migraine with aura and without status migrainosus, not intractable [G43.109] Prescriptions as of 07/19/2017 Sig: FROVATRIPTAN 2.5 MG TABLET Take 1 tab at migraine onset.* RIZATRIPTAN 10 MG TABLET 1 tab at earliest sign of leona* TOPIRAMATE 100 MG TABLET Take 1 tablet by mouth twice * LEVONORGESTREL 20 MCG/24 HR (* 1 Each by INTRAUTERINE route * Problem List As Of Date 07/19/2017 Noted Resolved Gastroesophageal reflux disease [K21.9] INVALID FOR* Migraine without aura and without status migrai*INVALID FOR* Occipital neuralgia of right side [M54.81] INVALID FOR* Vitamin D deficiency [E55.9] INVALID FOR* Other instructions from your clinician: Acute Headache Treatment: (What to take as-needed for headache) 1) Triptan at earliest sign of migraine. May repeat once in 2 hours. Do not use more than 10 days per month. Headache Preventive Treatment (What to take on a daily basis to try to lessen frequency and/or intensity of headache): *Please keep in mind that it takes 4-6 weeks for the medication to start working well and 2-3 months at the appropriate dose before deciding if it will be useful or not. If it is not helping at all by this time, then we will discuss other medications to try. Supplements may take 3-6 months until you see full effect. 1) Decrease Topamax by 50 mg every week alternating between morning, then bedtime, then morning, then bedtime. When you get down to 50 mg at bedtime for 1 week, then do 50 mg at bedtime every other night for 1 week and then stop. 2) Consider adding supplements: Magnesium citrate (other forms ok too) 400-800 mg daily +/- Coenzyme Q10 200 mg (or 150 mg) twice daily (or Qunol brand 100 mg daily) +/- Riboflavin (Vitamin B2) 400 mg daily (or 200 mg twice daily). You can sometimes buy supplements cheaper (especially Coenzyme Q10) at [employer] or at [employer]. General Headache Instructions: 1) Maintain a headache diary; learn to identify and avoid triggers. 2) Limit use of acute treatments (gwes-jzu-eyxzqmb medications, triptans, etc.) to no more than 2 days per week or 10 days per month to prevent medication overuse headache (rebound headache). 3) Follow a regular schedule (including weekends and holidays) for the next 6 weeks: A) Don't skip meals. B) 8 hours of sleep nightly. C) Avoid the following common headache triggers: -Caffeine (coffee, chocolate, tea, cola/pop/soda (7-up, Sprite, Paula Mist, Jeny Deepa, Mug/A+W Root Beer, Minute Maid [place], Slice are okay)) -Foods containing nitrates (deli meat, ham, song, sausage, hot dogs) -Tyramine (aged cheese; can only have Micronesian cheese, cottage cheese, Velveeta and fresh mozarella (most pizza uses aged mozarella)) -MSG (Japanese/ foods, Doritos, all flavored chips and Ramen noodles) -Nutrasweet and artificial sweeteners D) Minimize stress. E) Exercise 30 minutes per day. Being overweight is associated with a 5 times increased risk of chronic migraine. F) Keep well hydrated and drink 6-8 glasses of water per day. 4) Initiate non-pharmacologic measures at the earliest onset of your headache. A) Rest and quiet in a cool, dark environment. B) Relax and reduce stress. C) Cold compress to head (place a dry washcloth to forehead, cover with a blue freezer packet and use a headband to press the freezer packet across the forehead and temples). 5) Don't wait!! Take the maximum allowable dosage of prescribed medication at the very earliest sign of headache. 6) Compliance: Take prescribed medication regularly as directed and at the first sign of a headache. 7) Communicate: Call your physician when problems arise, especially if your headaches change, increase in frequency/severity, or become associated with neurological symptoms (weakness, numbness, slurred speech, etc.). 8) Headache/pain management therapies: Consider various complementary methods, including medication, behavioral therapy, psychological counselling, biofeedback, massage therapy, acupuncture, and other modalities. Such measures may reduce the need for medications. Counseling for pain management, where patients learn to function and ignore/minimize their pain, seems to work very well. 9) Recommend changing family's attention and focus away from patient's headaches. Instead, emphasize daily activities. If first question of day is 'How are your headaches/Do you have a headache today?', then patient will constantly think about headaches, thus making them worse. Goal is to re-direct attention away from headaches, toward daily activities and other distractions. Avoiding Medication Overuse Headache (Rebound Headache): Based on current research, the types of medications and their frequency of use which converts a previously episodic headache (particularly migraine) into a chronic daily headache (any headache occurring 15 or more days per month for at least 4 hours per day) are as follows: ---> Over the counter medications, NSAIDS and combination analgesics: -More than 2 days per week, or more than 10 days per month. -These include medications such as Acetaminophen (Tylenol), Naproxen (Aleve), Ibuprofen (Advil, Motrin), Acetaminophen/Caffeine (Excedrin), Acetaminophen/Dichloralphenazone/Isometheptene (Midrin), Aspirin (ok to continue if taking for medical reasons), cold remedies and sleep-promoting agents, among others. ---> Triptans: -More than 2 days per week, or more than 10 days per month. -These include Sumatriptan (Imitrex), Sumatriptan/Naproxen (Treximet), Rizatriptan (Maxalt), Almotriptan (Axert), Zolmitriptan (Zomig), Eletriptan (Relpax), Naratriptan (Amerge), Frovatriptan (Frova). ---> Opiates/Opioids (Narcotics): -8 days or more per month. Some research suggests that even infrequent use of these medications makes migraine specific medications such as triptans and NSAIDs less effective. -These include any narcotics such as Acetaminophen/Hydrocodone (Vicodin), Acetaminophen/Oxycodone (Percocet), Acetaminophen/Propoxyhene (Darvocet), Acetaminophen/Codeine (Tylenol #3, #4), Tramadol (Ultram), Acetaminophen/Tramadol (Ultracet), Oxycodone (OxyContin), Hydromorphone (Dilaudid), Fentanyl, Butorphanol (Stadol), Morphine or any form of a Morphine derivative. ---> Butalbital containing medications: -5 or more days per month. As you can see, these are the worst offenders. -These include Acetaminophen/Butalbital/Caffeine (Fioricet, Esgic) Acetaminophen/Butalbital/Caffeine/Codeine (Fioricet with Codeine), Aspirin/Butalbital/Caffeine (Fiorinal), Aspirin/Butalbital/Caffeine/Codeine (Fiorinal with Codeine). Vitamins and herbs that show potential for migraine prevention: Magnesium: Magnesium (250 mg twice a day or 500 mg at bed) has a relaxant effect on smooth muscles such as blood vessels. We often give intravenous magnesium to patients who come into the emergency department for migraine because it helps to break the migraine. Three trials found 40-90% average headache reduction when used as a preventative. Magnesium also demonstrated the benefit in menstrually related migraine. Magnesium is part of the messenger system in the serotonin cascade and it is a good muscle relaxant. It is also useful for constipation which can be a side effect of other medications used to treat migraine. Good sources include nuts, whole grains, and tomatoes. Coenzyme Q10: This is present in almost all cells in the body and is critical component for the conversion of energy. Recent studies have shown that a nutritional supplement of CoQ10 can reduce the frequency of migraine attacks by improving the energy production of cells as with riboflavin. Doses of 200 mg (or 150 mg) twice a day have been shown to be effective. Riboflavin (Vitamin B2): 200 mg twice a day (or 400 mg daily). This vitamin assists nerve cells in the production of ATP, a principal energy storing molecule. It is necessary for many chemical reactions in the body. There have been at least 3 clinical trials of riboflavin using 400 mg per day all of which suggested that migraine frequency can be decreased. All 3 trials showed significant improvement in over half of migraine sufferers. The supplement is found in bread, cereal, milk, meat, and poultry. Most Americans get more riboflavin than the recommended daily allowance, however riboflavin deficiency is not necessary for the supplements to help prevent headache. Feverfew: Feverfew is a common garden herb [place] and popular in [place] as a treatment for disorders typically controlled by aspirin. The mechanism of action is unknown but is believed to be related to a chemical called parthenolide which helps the body use serotonin more effectively. Serotonin helps prevent migraine and assists with resolution when it occurs. Parthenolide also inhibits the release of histamine which is linked to pain and inflammation. Consistency of active ingredients in different products can be a problem. Some formulations don't have the active ingredient (parthenolide) that prevents migraine. A parthenolide content of 0.2% is generally recommended. Typical dosage is one capsule 3 times a day. Butterbur: This is an extract derived from the petisides hybridus root, which has been used for medicinal purposes since ancient times. A recent study found that 75 mg daily given over 4 months reduced headache frequency by 50% or more in over two thirds of the 245 patient studied. The 50 mg dose showed no significant effect. Side effects were infrequent, and the most common and unusual includes burping/belching. Raw butterbur root contains toxic chemicals that must be filtered out during the manufacturing process. To be sure you are choosing a safe product. Look for a formulation that does not contain pyrrolizidine alkaloids which are toxic to the liver. Melatonin: Increasing evidence shows correlation between melatonin secretion and headache conditions. Melatonin supplementation has shown decreased headache intensity and duration. It is widely used as a sleep aid. Sleep is nature's way of dealing with migraine. A dose of 3 mg is recommended to start for headaches including cluster headache. Higher doses up to 15 mg has been reviewed for use in Cluster headache and have been used. The rationale behind using melatonin for cluster is that many theories regarding the cause of Cluster headache center around the disruption of the normal circadian rhythm in the brain. This helps restore the normal circadian rhythm. It should be taken at least 2 hours before bedtime. Jeny: Jeny has a small amount of anti-histamine and anti-inflammatory action which may help headache. It is primarily used for nausea and may aid in the absorption of other medications. HEADACHE EXPECTATIONS: There are many types of headaches, and only a rare few in which complete relief can be expected. In general, there is no cure for headache, especially migraine based headaches. There is nothing available that completely prevents headaches from occurring, breaking through, or having periodic flare-ups and fluctuations. Regardless of what you are using on a daily basis for prevention, episodic headaches should still be expected, and periods where frequency may escalate and fluctuate are unavoidable. There is no quick fix for most headaches. Furthermore, the longer you have had high frequency headaches (such as chronic daily headache), the longer it will likely take to expect any improvement. In fact, some people will never improve, regardless of how many medications or other treatments we try. Our treatment strategy is to evaluate for possible causes of your headache, although testing is usually always normal, even in cases of daily continuous headaches for years. Most types of headache such as migraine are electrical brain disorders (similar to how epilepsy is an electrical brain disorders). Therefore, there is no testing that will reveal this dysfunctional electrical circuitry such on MRI, or other testing. We try to find a medication that may help lessen the frequency and/or severity of your headaches. The goal is not to completely stop them from happening, although if that happens, great! Different people respond to different medications, and some people just don't respond to anything, so it's usually a matter of trying different options. We can not predict if or when exactly you will respond to a treatment that we provide. Preventive headache medications take 4-6 weeks to start working, and 2-3 months to see full effect, assuming you reach an effective dose. Therefore, calling or messaging frequently because you have a headache flare prior to the 3 month renaldo is unlikely to change anything, and unfortunately there is nothing available that will expedite this, so please try to avoid this. Our recommendation will generally be to give it adequate time first. If you are unable to wait it out for medications to work, we can also try IV infusions for some temporary relief. Or, we offer our 3 week outpatient chronic daily headache program (IMATCH) to help you better learn how to function and deal with chronic headache issues. In general, the best that preventive medications or other treatments (including Botox) are able to offer in migraine management (variable in other headache types) is a 50% improvement in frequency and/or severity of headache. That is our goal, and any additional benefit is considered a bonus. Some people do significantly better than this, others do not get close to this. Therefore, if your headaches are not improving by at least 3 months on your preventive strategy, contact us and we can discuss further adjustments. Keep in mind that complete headache cure is not a realistic expectation. MYCHART, PHONE CALLS, TESTING RESULTS: Please understand that we rely heavily and work closely with our nursing team to assist us in managing your telephone calls, test results, and refills. Due to the volume of daily phone calls, messages, and schedules, it is impossible for us to personally call patients back through the day. We do receive your messages, which are very important to us, and respond most often through our nursing team to help relay our message and response back to you. The main way of communication is by YouTabhart rather than phone lines, so if you have not signed up, please do so. YouTabhart is also the way that you can review your labs and testing. We are not able to contact everyone to tell them results are normal. If you do not hear back from us regarding testing you have had, it should be considered normal or within normal range. If you have any questions about the results, you are free to message us. MyChart is meant for simple questions regarding medications, possible side effects, or other simple straight forward questions in limited sentences, rather than multiple paragraphs of discussion. MyChart is not meant for, safe, or efficient for these complex questions, extensive questions, extensive medication adjustments, complex new symptoms or concerns. These issues beyond simple questions require a follow up visit with myself, one of our physician assistants, nurse practitioners, or a Virtual Visit via computer or smart phone, as detailed further down. REFILLS: Please pay attention to when your refills will need to be renewed. Due to the volume of phone calls daily, this could potentially take a few days, although we certainly try to honor your refill requests as soon as we can. You should call at least 1 week in advance of needing a refill to ensure you do not run out of medication. Keep in mind that refill requests on Fridays may not be filled until the following week. BOTOX: If you are receiving Botox treatments, please check with your insurance company before and following each treatment appointment to ensure that you still have pre-approved coverage for your next Botox appointment in 3 months. If your coverage has run out, and a new prior authorization is required to continue Botox treatment, please call our office and let us know so that we can file the paperwork. Telemedicine is the newest ?virtual visit? that we are now offering to allow you to have a [id number] conversation with your doctor for 15 minutes (although this can extend further as needed), without the need for driving to our clinic, paying for parking, paying copays, paying for travel, stopping over for meals, etc. This is a self-pay option for which you will be charged $49, and you will need a computer or smartphone (with a built-in camera), should you wish to avail of this convenient alternative. If you are interested in the telemedicine visit, please let me know and we will facilitate that visit. I have included more detailed information below on how the virtual visit works. We look forward to serving your needs and answering your questions! REASON FOR A VIRTUAL ONLINE APPOINTMENT In order to provide you with the best care possible, we have recently begun using a technology to connect patients, providers, and family members through a ?Skype?-like connection for live audio and video communication. We are now using this as a way for patients to have a visit with a provider without the added costs of having to travel to our facility. This service, [facility], is easily accessible through your mobile device or a desktop/laptop with a browser and internet connection. HOW DO I GET STARTED? ON A DESKTOP OR LAPTOP COMPUTER WITH A WEBCAM CONNECTED: 1. Go to the URL: [email or web address] 2. Click on Sign Up and Create a patient account for yourself. 3. Please also follow the links to ?Test My Computer?. 4. Follow the steps suggested, testing your Internet Speed, Webcam, Microphone, Speaker, and your video software. 5. Please make sure your video software is up-to-date. This is a safe, [facility] approved download, and will not harm your computer. ON AN IPHONE, IPAD, OR ANDROID DEVICE: 1. Open up the Terrie Store or SLEDVision and search [facility]. 2. Download and Install the Application. 3. Tap on Sign Up and create a patient account for yourself. 4. Please use an e-mail address that you frequently check, as you will receive an e-mail appointment from [facility]. Find our user guide, here: [email or web address] Important: Don?t forget your password you choose during setup. For your personal records: Your E-mail Address Here: Your Password Here: YOUR ONLINE VIRTUAL VISIT 1. Once the visit is scheduled, you should plan to begin your visit at least 15 minutes prior to the start of your visit. 2. You can begin by opening the email you received to schedule this visit, click on ?Start Visit,? agree to the Terms of Use, and wait for your visit to start! 3. Agree to the Terms of Use, and wait for your visit to start! 4. When you join the virtual visit you will be connected to the provider. Please call [phone] prior to your visit if you have any questions regarding technology! Disposition: Return in about 6 months (around 01/19/2018). Follow-up and Disposition History Recorded Encounter Status:Closed by BREANA LOZANO DO on 07/19/17 ALLERGIES ALLERGIES DATE TYPE / CODE NAME / CODE REACTION SEVERITY SOURCE Drug NO KNOWN [facility] Class/78611 ALLERGIES Main [place] 1003(SNOMED Repository CT) ENCOUNTERS ENCOUNTERS ADMIT/DISCHARGE ACCOUNT ADMITTING ENCOUNTER LOCATION SOURCE NUMBER CLASS 05/04/2018 [id number] [facility] ing:US Repository 04/25/2018 [id number] [facility] ing:WOBLAB Repository 01/24/2018/01/25/20 [id number] [address]ulatory [address] Repository 07/19/2017/07/20/19 [id number] Ambulatory [address] Repository PAYERS PAYERS ENCOUNTER GUARANTOR PAYER SUBSCRIBER SOURCE 05/04/2018 ALEETA A Primary ALEETA A Momo [id number] [address] Insurance:ANTHEMPolic [place] Number: [id number] [id number]: 330 [id number] Repository [phone] () Date:[id number] [address] [address]BJ: 05/04/2018 Secondary NOT GIVENUNK Momo Insurance:SELF PAY [facility] Number: Effective Repository Date:2018-04-25 04/25/2018 ALEETA A Primary ALEETA A [place] [id number] Insurance:ANTHEMPolic [place]: [place] Number: [id number] [id number]: 330 [id number] Repository [phone] () Date:[id number] [address]JR: 04/25/2018 Secondary NOT GIVENUNK [place] Insurance:SELF PAY [facility] Number: Effective Repository Date:2018-04-25
== END ==
PROVIDERS: Visit Provider Obstetrics & Gynecology
DX: Z12.4 Encounter for screening for malignant neoplasm of cervix (principal); N92.6 Irregular menstruation, unspecified
CPT/HCPCS: 36415; 82670; 83036; 84144; 84403; 84439; 84443; 84481; 84702; 85027; 88175; G0145

== ENCOUNTER → 2018-05-04 13:42 | Outpatient (CLI) | payer BC, SELFPAY ==
--- NOTE | 2018-05-04 13:47 | US_ITS ---
STUDY: ULTRASOUND OF THE FEMALE PELVIS - COMPLETE REASON FOR EXAM: Female, 37 years old. Abnormal vaginal bleeding LMP: 03/05/2018 TECHNIQUE: Transabdominal imaging initially performed with subsequent transvaginal imaging needed for better characterization of the endometrial complex. TECHNICAL QUALITY: Adequate. COMPARISON: None. FINDINGS: The uterus is anteverted and is in a midline position. The uterus measures 10.3 x 4.6 x 5.6 cm. There is a Nabothian cyst of the cervix. The endometrium measures 5.4 mm in thickness, and is hyperechoic. There is no demonstrated endometrial mass. There is no demonstrated myometrial mass. I.U.D. - The patient does have an I.U.D., positioned in the upper uterine canal/fundus The right ovary is visualized. The right ovary measures 2.8 x 2.8 x 1.5 cm. There are multiple follicles of the right ovary without a dominant cyst. There is no visualized right adnexal mass or complex lesion. There is normal arterial and normal venous vascularity. The left ovary is visualized. The left ovary measures 3.1 x 1.5 x 1.5 cm. There is no left ovarian cyst or ovarian mass. There is no visualized left adnexal mass or complex lesion. There is normal arterial and normal venous vascularity. There is no fluid in the cul-de-sac. Visualized urinary bladder is unremarkable. US/Pelvic (Non ) IMPRESSION: Normal female pelvis. IUD. Electronically Signed: Roger Woods MD at 10:29 EST , Service support ,
--- NOTE | 2018-05-04 13:48 | US_ITS ---
STUDY: ULTRASOUND OF THE FEMALE PELVIS - COMPLETE REASON FOR EXAM: Female, 37 years old. Abnormal vaginal bleeding LMP: 03/05/2018 TECHNIQUE: Transabdominal imaging initially performed with subsequent transvaginal imaging needed for better characterization of the endometrial complex. TECHNICAL QUALITY: Adequate. COMPARISON: None. FINDINGS: The uterus is anteverted and is in a midline position. The uterus measures 10.3 x 4.6 x 5.6 cm. There is a Nabothian cyst of the cervix. The endometrium measures 5.4 mm in thickness, and is hyperechoic. There is no demonstrated endometrial mass. There is no demonstrated myometrial mass. I.U.D. - The patient does have an I.U.D., positioned in the upper uterine canal/fundus The right ovary is visualized. The right ovary measures 2.8 x 2.8 x 1.5 cm. There are multiple follicles of the right ovary without a dominant cyst. There is no visualized right adnexal mass or complex lesion. There is normal arterial and normal venous vascularity. The left ovary is visualized. The left ovary measures 3.1 x 1.5 x 1.5 cm. There is no left ovarian cyst or ovarian mass. There is no visualized left adnexal mass or complex lesion. There is normal arterial and normal venous vascularity. There is no fluid in the cul-de-sac. Visualized urinary bladder is unremarkable. US/Transvaginal Non- IMPRESSION: Normal female pelvis. IUD. Electronically Signed: Roger Woods MD at 10:29 EST , Service support ,
== END ==
PROVIDERS: Referring Provider Obstetrics & Gynecology; Visit Provider Obstetrics & Gynecology
DX: N93.8 Other specified abnormal uterine and vaginal bleeding (principal)
CPT/HCPCS: 76830; 76856

== ENCOUNTER → 2018-09-06 12:03 | Outpatient (CLI) | payer BC, SELFPAY ==
[2018-09-06 13:01] LABS: Progesterone Level 0.53 ng/mL (See Comment)
== END ==
PROVIDERS: Visit Provider Obstetrics & Gynecology
DX: N91.2 Amenorrhea, unspecified (principal)
CPT/HCPCS: 36415; 82670; 84144

== ENCOUNTER → 2020-02-11 11:45 | Outpatient (CLI) | payer BC, SELFPAY ==
[2020-02-11 13:59] LABS: Vitamin D,25 Hydroxy 28.3 ng/mL
== END ==
PROVIDERS: Visit Provider Student in an Organized Health Care Education/Training Program
DX: E55.9 Vitamin D deficiency, unspecified (principal)
CPT/HCPCS: 36415; 82306

== ENCOUNTER → 2020-09-25 08:05 | Outpatient (CLI) | payer BC, SELFPAY ==
[2020-09-25 10:31] LABS: Hematocrit 41.8 % (37-47); Mean Corp Hgb Conc 31.1 g/dL (32-36); Mean Corpuscular Hgb 26.4 pg (27.0-32.0); Mean Corpuscular Volume 84.8 fL (81-99); Mean Platelet Vol. 8.9 fl (6.2-12.0); Platelet Count 404 K/mm3 (150-450); RBC Distribution Width CV 12.6 % (11.6-14.6); RBC Distribution Width SD 38.9 fl (35.1-43.9); Red Blood Count 4.93 M/mm3 (4.2-5.4); White Blood Count 8.9 K/mm3 (4.4-11.0)
[2020-09-25 11:16] LABS: ALB/GLOB Ratio 0.9 RATIO (0.9-2.4); AST(SGOT) 14 U/L (15-37); Alanine Aminotransfer ALT/SGPT 31 U/L (13-56); Albumin, Serum 3.8 g/dL (3.2-5.0); Alkaline Phosphatase 51 U/L (45-117); Anion Gap 6 (5-15); BUN 11 mg/dL (7-18); BUN/Creat Ratio 13.8 RATIO (10-20); Chloride 104 mmol/L (98-107); Cholesterol 165 mg/dL (200); EST Glomerular Filtration Rate 85 mL/min (>60); Est Glom Filt Rate - Afr Amer 102 mL/min (>60); Globulin 4.1 g/dL (2.2-4.2); Glucose 92 mg/dL (74-106); High Density Lipoprotein 40 mg/dL; Iron 83 ug/dL (50-170); Potassium 3.7 mmol/L (3.5-5.1); Protein, Total 7.9 g/dL (6.4-8.2); Sodium Level 137 mmol/L (136-145); T4 Free Direct 0.84 ng/dL (0.76-1.46); Thyroid Stim Hormone (TSH) 1.76 uIU/mL (0.358-3.74); Triglycerides 97 mg/dL; Very Low Density Lipoprotein 19 mg/dL (5-40)
[2020-09-26 08:03] LABS: Vitamin B12 444 pg/mL (211-911); Vitamin D,25 Hydroxy 24.4 ng/mL
== END ==
PROVIDERS: PCP Family Medicine; Referring Provider Family Medicine; Visit Provider Family Medicine
DX: R53.83 Other fatigue (principal); R79.89 Other specified abnormal findings of blood chemistry; Z13.220 Encounter for screening for lipoid disorders
CPT/HCPCS: 36415; 80053; 80061; 82306; 82533; 82607; 83540; 84439; 84443; 85027

== ENCOUNTER → 2021-02-03 14:12 | Outpatient (CLI) | payer BC, SELFPAY ==
[2021-02-03 18:11] LABS: Erythrocyte Sedimentation Rate 10 mm/hr (0-30)
[2021-02-03 18:28] LABS: Anion Gap 6 (5-15); BUN 8 mg/dL (7-18); BUN/Creat Ratio 8.4 RATIO (10-20); Calcium,Total 9.1 mg/dL (8.5-10.1); Chloride 105 mmol/L (98-107); Creatinine, Serum 0.95 mg/dL (0.55-1.02); EST Glomerular Filtration Rate 69 mL/min (>60); Est Glom Filt Rate - Afr Amer 84 mL/min (>60); Glucose 97 mg/dL (74-106); Potassium 3.8 mmol/L (3.5-5.1); Rheumatoid Factor < 10.0 IU/mL (<15); Sodium Level 138 mmol/L (136-145)
[2021-02-08 16:44] LABS: ANTINUCLEAR ANTIBODIES DIRECT Negative (Negative)
== END ==
PROVIDERS: PCP Family Medicine; Referring Provider Family Medicine; Visit Provider Family Medicine
DX: R21 Rash and other nonspecific skin eruption (principal); I10 Essential (primary) hypertension
CPT/HCPCS: 36415; 80048; 85652; 86038; 86431

== ENCOUNTER 2021-08-10 15:10 | Outpatient (CLI) | payer BC, SELFPAY ==
[2021-08-17 11:46] LABS: HPV APTIMA, High Risk Negative (Negative)
== END 2021-08-10 23:59 | disposition home or self-care (01) ==
PROVIDERS: PCP Family Medicine; Visit Provider Student in an Organized Health Care Education/Training Program
DX: Z12.4 Encounter for screening for malignant neoplasm of cervix (principal)
CPT/HCPCS: 87624; 88175; G0145

== ENCOUNTER 2021-08-17 12:31 | Outpatient (CLI) | payer BC, SELFPAY ==
--- NOTE | 2021-08-17 12:40 | BI_ITS ---
MAMMOGRAPHY - BILATERAL SCREENING REASON FOR EXAM: Female, 41 years old. Routine annual screening examination. PERTINENT HISTORY: Non-contributory. TECHNIQUE: Digital bilateral breast aide (3D mammographic acquisition) in the CC and MLO projections. 2-D mediolateral oblique (MLO) and craniocaudad (CC) views of both breasts were obtained. CAD: Full Field Digital Mammography with Computer Added Detection was performed. COMPARISON: None. Baseline examination. FINDINGS: Breast Composition: The breasts are heterogeneously dense, which may obscure small masses. There are no dominant masses or suspicious calcifications. Small bilateral axillary lymph nodes. No other significant abnormalities are identified. BI/SCRN MAMM (CAD)W/AIDE BILAT IMPRESSION: Negative screening mammogram. Yearly followup mammogram recommended. (A) ASSESSMENT CATEGORY: BIRADS Category 2: Benign. A letter regarding these results will be sent to the patient by the facility within 30 days. Approximately 10% of breast cancers are not detected by mammography. A normal mammogram should not delay biopsy of a clinically suspicious abnormality. [id number] Electronically Signed: Greyson Waters MD at 13:41 EDT ,
== END 2021-08-17 23:59 | disposition home or self-care (01) ==
LOC: OPBI 12:38
PROVIDERS: PCP Family Medicine; Referring Provider Student in an Organized Health Care Education/Training Program; Visit Provider Student in an Organized Health Care Education/Training Program
DX: Z12.31 Encounter for screening mammogram for malignant neoplasm of breast (principal)
CPT/HCPCS: 77063; 77067

== ENCOUNTER → 2021-09-13 | Outpatient (CLI) | payer BC, SELFPAY ==
[2021-09-13 15:27] LABS: Hematocrit 40.1 % (37-47); Mean Corp Hgb Conc 32.4 g/dL (32-36); Mean Corpuscular Hgb 27.7 pg (27.0-32.0); Mean Corpuscular Volume 85.5 fL (81-99); Mean Platelet Vol. 8.6 fl (6.2-12.0); Platelet Count 428 K/mm3 (150-450); RBC Distribution Width CV 13.1 % (11.6-14.6); Red Blood Count 4.69 M/mm3 (4.2-5.4); White Blood Count 9.3 K/mm3 (4.4-11.0)
[2021-09-13 16:00] LABS: Vitamin B12 435 pg/mL (211-911); Vitamin D,25 Hydroxy 53.9 ng/mL
[2021-09-13 16:20] LABS: ALB/GLOB Ratio 0.9 RATIO (0.9-2.4); AST(SGOT) 19 U/L (15-37); Alanine Aminotransfer ALT/SGPT 32 U/L (13-56); Albumin, Serum 3.7 g/dL (3.2-5.0); Alkaline Phosphatase 62 U/L (45-117); Anion Gap 6 (5-15); BUN 7 mg/dL (7-18); BUN/Creat Ratio 8.4 RATIO (10-20); Calcium,Total 9.2 mg/dL (8.5-10.1); Chloride 104 mmol/L (98-107); Creatinine, Serum 0.84 mg/dL (0.55-1.02); EST Glomerular Filtration Rate 80 mL/min (>60); Est Glom Filt Rate - Afr Amer 96 mL/min (>60); Globulin 4.2 g/dL (2.2-4.2); Glucose 109 mg/dL (74-106); Iron 77 ug/dL (50-170); Potassium 3.6 mmol/L (3.5-5.1); Protein, Total 7.9 g/dL (6.4-8.2); Sodium Level 136 mmol/L (136-145); Thyroid Stim Hormone (TSH) 2.06 uIU/mL (0.358-3.74)
== END | disposition home or self-care (01) ==
LOC: MFPLAB 14:17
PROVIDERS: PCP Family Medicine; Visit Provider Family Medicine
DX: R20.2 Paresthesia of skin (principal)
CPT/HCPCS: 36415; 80053; 82306; 82607; 83540; 84443; 85027

== ENCOUNTER 2022-05-11 19:44 | Emergency (ER) | payer BC, SELFPAY ==
[2022-05-11 19:45] VITALS: PULSE 89; RESP 18; TEMP 36.1; O2SAT 98; BMI 44.2
[2022-05-11] MEDS: DiphenhydrAMINE 50 MG/ML Syringe 25 MG IV (22:34)
[2022-05-11] MEDS: 0.9% Normal Saline 1,000 ML 999 ML IV (22:34)
[2022-05-11] MEDS: Ketorolac 30 MG/ML Syringe IV (22:35)
[2022-05-11] MEDS: Metoclopramide 10 MG/2 ML Vial IV (22:36)
[2022-05-11 22:46] VITALS: BP 142/83; PULSE 68; RESP 18; O2SAT 98
--- NOTE | 2022-05-11 23:42 | EDS_ITS ---
HPI History of Present Illness Chief Complaint: Headache Informant: patient Onset/Context/Timing Onset: Today Timing: Continuous Quality -Headache: Positive for Similar Prior Headaches Location: Right-sided Current Severity: Severe Maximum Severity: Severe Worsened by: Light Relieved by: Nothing Associated Symptoms/Injury Associated Symptoms: Positive for Nausea, Vomiting and Photophobia; Negative for Fever, Sore Throat, Sinus Pressure, Numbness, Tingling, Preceding Aura, Visual Changes, Blurred Vision or Visual Loss Narrative Narrative: Patient notes with his migraine headache that began today. Patient states she woke up with the pain this morning. Patient states the pain feels similar to prior migraine headaches. Patient states it is on the right side of her head. Patient states it has been constant. Patient states she has been taking her home medications with no improvement. Patient admits to some nausea and vomiting. Patient denies any fevers or chills. Patient denies any blurry vision or double vision. Patient admits to some photophobia but denies any scotoma or auras. [facility] Medical History (Updated 05/11/22 @ 23:[address] Abner Alvarez DO) Anxiety Headache, migraine Hypertension Allergy/AdvReac Type Severity Reaction Status Date / Time No Known Allergies Allergy Verified 05/11/22 19:48 Social History Smoking Status: Former smoker ROS ROS ED Constitutional Constitutional ED: Denies chills or fever(s) Eyes Eyes: Denies blurry vision or change in vision ENT ENT ED: Denies rhinorrhea or sore throat Cardiovascular Cardiovascular: Denies chest pain or palpitations Respiratory/Chest Respiratory/Chest: Denies cough or dyspnea Gastrointestinal Gastrointestinal: Reports nausea and vomiting Genitourinary Genitourinary ED: Denies dysuria or hematuria Musculoskeletal Musculoskeletal: Reports neck pain; Denies back pain Integumentary Denies abscess or rash Neurologic Neurologic: Reports headache(s); Denies weakness Allergic/Immunologic Allergic/Immunologic ED: Denies mouth swelling or urticaria EXAM Physical Exam Const Vital Signs: 05/11/22 19:45 05/11/22 22:46 Temperature 96.9 F L Temperature Source Temporal Pulse Rate 89 68 Respiratory Rate 18 18 Blood Pressure 142/83 H Blood Pressure Mean 102 Pulse Ox 98 98 Oxygen Delivery Method Room Air Room Air Positive well nourished and well developed General Appearance ED: well developed HEENT Reports moist mucous membranes atraumatic Neck supple, no meningeal signs and no JVD Resp normal respiratory effort and clear to auscultation bilaterally Cardio regular rate, regular rhythm and no murmurs GI normal to inspection, nondistended, normoactive bowel sounds and non-tender Palpation: soft Extremity normal to inspection General Extremety ED: Negative for edema or tenderness General Extremity: Negative for edema Neuro oriented x3, CN's II-XII intact bilaterally and no sensory deficits noted Sensorium / Orientation: awake and alert Speech: speech normal Motor Exam: strength 5/5 throughout Psych mental status grossly normal Skin no rashes or lesions noted MDM MDM MDM Narrative Medical decision making narrative: Patient was given IV fluids, Reglan, Benadryl, and Toradol. Patient states her headache resolved after this. Patient was instructed to rest in a dark quiet room. Patient was instructed to follow-up with her primary care physician in 5 to 7 days. Patient understood and was agreeable with the plan. All questions were answered. Discharge Plan Triage Chief Complaint: Headache ED Provider: Abner Alvarez Dx/Rx/DC Orders Clinical Impression: Migraine headache, Morbid obesity with BMI of 40.0-44.9, adult Instructions: ED, Migraine (Classical) Primary Care Provider: Tylor Hernández Referrals: Tylor Hernández MD [Primary Care Provider] - 5-7 Days Disposition Disposition: Home, Self Care
[2022-05-11 23:55] VITALS: BP 129/67; PULSE 77; RESP 18; O2SAT 94
== END 2022-05-11 23:56 | disposition home or self-care (01) ==
PROVIDERS: Emergency Provider Emergency Medicine; PCP Family Medicine; Visit Provider Emergency Medicine
DX: G43.909 Migraine, unspecified, not intractable, without status migrainosus (principal); E66.01 Morbid (severe) obesity due to excess calories; Z87.891 Personal history of nicotine dependence; I10 Essential (primary) hypertension; R11.2 Nausea with vomiting, unspecified
CPT/HCPCS: 96361; 96374; 96375; 99284; A4216

== ENCOUNTER → 2022-05-26 | Outpatient (CLI) | payer BC, SELFPAY ==
--- NOTE | 2022-05-26 11:35 | RAD_ITS ---
STUDY: X-RAY - ACUTE ABDOMINAL SERIES REASON FOR EXAM: Female, 41 years old. Vomiting. TECHNIQUE: Single view of the chest. Supine, and erect view(s) of the abdomen were obtained. COMPARISON: None. FINDINGS: The lungs are clear and expanded. Normal size heart. Normal mediastinum and nelida. Normal visualized pulmonary arteries. Normal visualized aortic arch and descending thoracic aorta. There is a non-specific bowel gas pattern. Air and feces is seen throughout nondistended colon. No small bowel dilatation. No free air. The soft tissue structures of the abdomen and pelvis are unremarkable. There is a IUD in the central pelvis. Normal visualized osseous structures. RAD/Acute Abdomen Inc Chest IMPRESSION: Normal x-ray examination of the chest, abdomen, and pelvis. Electronically Signed: Alan Layton DO at 23:23 [facility] ,
[2022-05-26 15:16] LABS: Erythrocyte Sedimentation Rate 16 mm/hr (0-30)
[2022-05-26 15:20] LABS: Absolute Lymphocyte Count 2.71 X10^3/uL (0.83-4.51); Absolute Neutrophil Count 6.8 X10^3/uL (2.0-7.7); Basophil# 0.08 X10^3/uL; Basophil% 0.8 % (0-1); Eosinophil# 0.32 X10^3/uL; Hematocrit 42.1 % (37-47); Hemoglobin 13.6 g/dL (12.0-15.0); Lymphocyte # 2.71 X10^3/ul (0.83-4.51); Lymphocyte % 25.6 % (19-41); Mean Corp Hgb Conc 32.3 g/dL (32-36); Mean Corpuscular Hgb 27.3 pg (27.0-32.0); Mean Corpuscular Volume 84.4 fL (81-99); Mean Platelet Vol. 9.2 fl (6.2-12.0); Monocyte# 0.68 X10^3/uL; Monocyte% 6.4 % (0-10); NRBC Flagged by Analyzer 0 % (0-5); Neutrophil # 6.76 X10^3/uL (2.7-7.7); Neutrophil % 63.8 % (47-70); Platelet Count 453 K/mm3 (150-450); RBC Distribution Width CV 12.4 % (11.6-14.6); RBC Distribution Width SD 37.9 fl (35.1-43.9); Red Blood Count 4.99 M/mm3 (4.2-5.4); White Blood Count 10.6 K/mm3 (4.4-11.0)
[2022-05-26 17:07] LABS: ALB/GLOB Ratio 1.2 RATIO (0.9-2.4); AST(SGOT) 14 U/L (15-37); Alanine Aminotransfer ALT/SGPT 34 U/L (13-56); Albumin, Serum 4.2 g/dL (3.2-5.0); Alkaline Phosphatase 53 U/L (45-117); Amylase 64 U/L (25-115); Anion Gap 9 (5-15); BUN 10 mg/dL (7-18); BUN/Creat Ratio 11.8 RATIO (10-20); Calcium,Total 9.4 mg/dL (8.5-10.1); Chloride 101 mmol/L (98-107); Creatinine, Serum 0.85 mg/dL (0.55-1.02); EST Glomerular Filtration Rate 78 mL/min (>60); Est Glom Filt Rate - Afr Amer 94 mL/min (>60); Globulin 3.6 g/dL (2.2-4.2); Glucose 93 mg/dL (74-106); Lipase 109 U/L (73-393); Potassium 4.1 mmol/L (3.5-5.1); Protein, Total 7.8 g/dL (6.4-8.2); Sodium Level 138 mmol/L (136-145); Thyroid Stim Hormone (TSH) 2.54 uIU/mL (0.358-3.74)
== END | disposition home or self-care (01) ==
PROVIDERS: PCP Family Medicine; Referring Provider Family Medicine; Visit Provider Family Medicine
DX: R11.10 Vomiting, unspecified (principal); K58.9 Irritable bowel syndrome, unspecified
CPT/HCPCS: 36415; 74022; 80053; 82150; 83690; 84443; 85025; 85652; 87086; 87088

== ENCOUNTER → 2022-07-05 | Outpatient (CLI) | payer BC, SELFPAY ==
--- NOTE | 2022-07-05 08:48 | RAD_ITS ---
STUDY: X-RAY - ESOPHAGUS (BARIUM SWALLOW) WITH FLUOROSCOPY REASON FOR EXAM: Female, 41 years old. DYSPHAGIA TECHNIQUE: 16 view(s) of the esophagus were obtained following swallowing of barium. FLUOROSCOPY TIME (if supplied): (29 seconds) minutes/seconds COMPARISON: None. FINDINGS: There is no demonstrated esophageal foreign body. There is no demonstrated stricture or mucosal abnormality. Normal gastroesophageal junction, without a demonstrated hiatal hernia. The patient ingested a 12 mm tablet of barium without any difficulty. Normal visualized aortic arch and descending thoracic aorta. Normal visualized pulmonary parenchyma. Normal visualized osseous structures of the thorax. RAD/Esophagus Single Contrast IMPRESSION: Normal plain film x-ray examination (barium swallow) of the esophagus. Electronically Signed: Greyson Waters MD at 9:56 EST ,
== END | disposition home or self-care (01) ==
PROVIDERS: PCP Family Medicine; Referring Provider Family Medicine; Visit Provider Family Medicine
DX: R10.13 Epigastric pain (principal)
CPT/HCPCS: 74220

== ENCOUNTER → 2022-08-30 | Outpatient (CLI) | payer BC, SELFPAY ==
[2022-08-30 12:47] LABS: Hemoglobin A1c 5.8 % (3.8-5.6)
[2022-08-30 13:57] LABS: Estradiol 121.3 pg/mL; Follicle Stimulating Hormone 3.6 mIU/mL; Prolactin 9.8 ng/mL
[2022-09-03 18:07] LABS: DHEA Sulfate 74.4 ug/dL (57.3-279.2); Testosterone, % Free 1.78 % (0.50-2.80); Testosterone, Total 11 ng/dL (4-50)
== END | disposition home or self-care (01) ==
LOC: WOBLAB 12:00
PROVIDERS: PCP Family Medicine; Visit Provider Student in an Organized Health Care Education/Training Program
DX: L68.0 Hirsutism (principal)
CPT/HCPCS: 36415; 82627; 82670; 83001; 83002; 83036; 84146; 84402; 84403; 82626

== ENCOUNTER → 2022-09-06 | Outpatient (CLI) | payer BC, SELFPAY ==
--- NOTE | 2022-09-06 11:51 | BI_ITS ---
MAMMOGRAPHY - BILATERAL SCREENING REASON FOR EXAM: Female, 42 years old. Routine annual screening examination. PERTINENT HISTORY: Non-contributory. TECHNIQUE: Digital bilateral breast aide (3D mammographic acquisition) in the CC and MLO projections. 2-D mediolateral oblique (MLO) and craniocaudad (CC) views of both breasts were obtained. CAD: Full Field Digital Mammography with Computer Added Detection was performed. COMPARISON: Comparison is made with prior examination August 17, 2021. FINDINGS: Breast Composition: There are scattered areas of fibroglandular density. There are no dominant masses or suspicious calcifications. Prominence of the left axillary lymph nodes. Clinical correlation is recommended. No other significant abnormalities are identified. There has been no significant change since the prior study. BI/SCRN MAMM (CAD)W/AIDE BILAT IMPRESSION: Stable bilateral screening mammogram. Yearly follow-up mammogram recommended. (A) ASSESSMENT CATEGORY: BIRADS Category 2: Benign. A letter regarding these results will be sent to the patient by the facility within 30 days. Approximately 10% of breast cancers are not detected by mammography. A normal mammogram should not delay biopsy of a clinically suspicious abnormality. [id number] Electronically Signed: Greyson Waters MD at 12:35 EDT ,
== END | disposition home or self-care (01) ==
LOC: OPBI 11:48
PROVIDERS: PCP Family Medicine; Referring Provider Student in an Organized Health Care Education/Training Program; Visit Provider Student in an Organized Health Care Education/Training Program
DX: Z12.31 Encounter for screening mammogram for malignant neoplasm of breast (principal)
CPT/HCPCS: 77063; 77067

== ENCOUNTER → 2022-11-16 | Outpatient (CLI) | payer BC, SELFPAY ==
[2022-11-16 16:14] LABS: Anion Gap 6 (5-15); BUN 7 mg/dL (7-18); BUN/Creat Ratio 8.8 RATIO (10-20); Calcium,Total 9.3 mg/dL (8.5-10.1); Chloride 106 mmol/L (98-107); EST Glomerular Filtration Rate 84 mL/min (>60); Est Glom Filt Rate - Afr Amer 102 mL/min (>60); Glucose 83 mg/dL (74-106); Potassium 3.8 mmol/L (3.5-5.1); Sodium Level 137 mmol/L (136-145)
[2022-11-23 14:09] LABS: HLA B27 Negative (.)
== END | disposition home or self-care (01) ==
PROVIDERS: PCP Family Medicine; Visit Provider Family Medicine
DX: I10 Essential (primary) hypertension (principal); Z82.69 Family history of other diseases of the musculoskeletal system and connective tissue
CPT/HCPCS: 36415; 80048; 81374

== ENCOUNTER → 2023-06-29 | Outpatient (CLI) | payer BC, SELFPAY ==
--- NOTE | 2023-06-29 09:19 | US_ITS ---
STUDY: ULTRASOUND BREAST - LEFT REASON FOR EXAM: Female, 42 years old. Left axillary lumps. TECHNIQUE: Axial and longitudinal images of the LEFT breast were performed with a high resolution ultrasound transducer. # OF IMAGES: 41 COMPARISON: Comparison is made with prior mammogram done earlier today. FINDINGS: LEFT Breast: Imaging of the left axilla was obtained. There is a dominant 4.8 cm x 4.2 cm x 2.6 cm hypoechoic heterogeneous lymph node with increased vascularity. There is also evidence of a 3.5 cm x 2.1 cm x 2.4 cm enlarged heterogeneous lymph node with increased vascularity as well as a 1.2 cm x 1.4 cm x 1.4 cm hypervascular lymph node. Biopsy recommended. US/Breast Limited Unilateral IMPRESSION: Enlarged left axillary lymph nodes as described with heterogeneous echotexture and increased vascularity. Biopsy recommended. ASSESSMENT CATEGORY: BIRADS Category 4: Suspicious - Biopsy Should Be Considered. A letter regarding these results will be sent to the patient by the facility within 30 days. Electronically Signed: Greyson Waters MD at 11:06 EST ,
--- NOTE | 2023-06-29 09:19 | BI_ITS ---
MAMMOGRAPHY - BILATERAL DIAGNOSTIC REASON FOR EXAM: Female, 42 years old. Swollen left axillary lymph nodes. PERTINENT HISTORY: Non-contributory. TECHNIQUE: Digital bilateral breast cherry (3D mammographic acquisition) in the CC and MLO projections. 2-D mediolateral oblique (MLO) and craniocaudad (CC) views of both breasts were obtained. CAD: Full Field Digital Mammography with Computer Added Detection was performed. COMPARISON: Comparison is made with prior examination dated September 06, 2022 and August 17, 2021. FINDINGS: Breast Composition: There are scattered areas of fibroglandular density. There are no dominant masses or suspicious calcifications. Months again, there is prominence of the left axillary lymph nodes with the enlargement and increased density. Correlation with ultrasound is recommended for further evaluation. No other significant abnormalities are identified. BI/DIAG MAMM W/CAD, BILAT IMPRESSION: Enlarged and dense left axillary lymph nodes. Correlation with ultrasound is recommended. ASSESSMENT CATEGORY: BIRADS Category 0: Incomplete. Need additional imaging evaluation. A letter regarding these results will be sent to the patient by the facility within 30 days. Approximately 10% of breast cancers are not detected by mammography. A normal mammogram should not delay biopsy of a clinically suspicious abnormality. Electronically Signed: Greyson Waters MD at 10:53 EST ,
== END | disposition home or self-care (01) ==
PROVIDERS: PCP Family Medicine; Referring Provider Family Medicine; Visit Provider Family Medicine
DX: M79.89 Other specified soft tissue disorders (principal)
CPT/HCPCS: 76642; 77062; 77066; G0279

== ENCOUNTER → 2023-07-04 | Outpatient (CLI) | payer BC, SELFPAY ==
--- NOTE | 2023-07-04 12:30 | LYMN_PTH ---
PATHOLOGY RESULTS PATIENT: MARY ANN SHRESTHA LOC: [facility] U#:[id number] AGE/SX: 42/F ROOM: RE07/04/[address]: Dr. Queenie Banerjee MD : 1980 BED: DIS: 07/04/2023 SPEC #: [id number] RECD: 07/04/23 13:07 STATUS: SALLY RECyndy #: [id number] MARILIA: 07/04/23 12:[address]: Queenie Banerjee DEPT: SURGICAL PATHOLOGY RECD BY: Fransisca Wilder ENTERED: 07/04/23 13:34 SP TYPE: LYMPH NODE OTHR DR: Dr. Mynor Hernández MD Tissues: LYMPH NODE BIOPSY Procedures: Special Stain Group II Surgery Specimen Level IV Imprint (control) HEADER OPERATION: Biopsy of left axillary lymph node PRE-OP DIAGNOSIS: Enlarged left axillary lymph node TISSUE SUBMITTED: Left axillary lymph node MICROSCOPIC DIAGNOSIS Left axillary lymph node, core biopsy: Suggestive of inflamed and infarcted papillary lesion. See comment. SETH:estefania 07/05/2023 COMMENT The specimen is evaluated at the time of touch preps by Dr. Escobar. Immediate Evaluation = A few lymphocytes and macrophages are noted. Excision of the lesion is necessary for definite diagnosis. No obvious lymph node tissue is identified. Correlation with clinical, radiologic findings and appropriate follow up are necessary. This case was reviewed and diagnosis discussed with Dr. Banerjee on 07/05/2023 and 07/14/2023. Case has been reviewed in consultation with Dr. Bo who concurs with the above diagnosis. IDC:AM MICROSCOPIC DESCRIPTION Slides are reviewed. GROSS DESCRIPTION Received in sterile saline is one container labeled with the patient's name and designated left axillary lymph node. The specimen consists of multiple elongated fragments of paul-yellow fibroadipose tissue that in aggregate measure 1.0 x 0.2 x 0.1 cm. A portion of tissue is submitted for flow cytometry study and later on cancelled. Two touch imprints are prepared. The entire specimen is submitted in one cassette. / SETH:estefania 07/04/2023 TC:5 CPT: 25568, 55092
--- OUTSIDE RECORDS SUMMARY | 2023-07-04 18:02 | XMS RPT_ITS | CCD ---
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 Name Role Phone Ashley Mari MD Primary Care Provider Harsha Hernández MD Primary Care Provider Harsha Hernández MD Primary Care Provider HARSHA HERNÁNDEZ Primary Care Unavaillefty e CAROLINA JUAREZ Attending Unavailable ASHLEY MARI Primary Care Unavailable ANN CAROLINA Referring Unavailable CAROLINA JUAREZ Attending Unavailable ASHLEY MARI Primary Care Unavailable ANN, CAROLINA Referring Unavailable HARSHA HERNÁNDEZ Primary Care Unavailabl e CAROLINA JUAREZ Attending Unavailable VILLA JUAREZHERINE Referring Unavailable CAROLINA JUAREZ Attending Unavailable HARSHA HERNÁNDEZ Primary Care Unavaillefty e VILLA JUAREZHERINE Referring Unavailable HARSHA HERNÁNDEZ Primary Care Unavailabl e Medications Current Medications Medication Drug Class(es) Dates Sig (Normalized) Sig (Original) amoxicillin 875 mg / clavulanate 125 mg oral tablet (1 source) Penicillin-class Antibacterial Start: 08-26-2022 End: 09-02-2022 take 1 tablet by mouth twice daily amoxicillin-clav ulanic acid (AUGMENTIN) 875-125 mg per tablet Take 1 tablet by mouth twice daily for 7 days. 14 tablet 0 08/26/2022 09/02/2022 Active Completed/Discontinued Medications Medication Drug Class(es) Dates Sig (Normalized) Sig (Original) amitriptyline hydrochloride 25 mg oral tablet (6 sources) Tricyclic Antidepressant Start: 12-25-2020 End: 07-14-2022 amitriptyline (ELAVIL) 25 mg tablet daily at bedtime. 0 12/25/2020 07/14/2022 Discontinued Problems Active Problems Problem Classification Problem Date Documented Date Episodic/Chronic Esophageal disorders (12 sources) Gastroesophageal reflux disease; Translations: [Gastro-esophageal reflux disease without esophagitis] Onset: 10-28-2015 10-28-2015 Chronic Genitourinary symptoms and ill-defined conditions (1 source) Increased frequency of urination; Translations: [Frequency of micturition] 12-10-2022 Episodic Headache; including migraine (20 sources) Chronic intractable migraine without aura; Translations: [Chronic migraine without aura, intractable, without status migrainosus] Onset: 02-05-2016 Chronic Nausea and vomiting (1 source) Nausea and vomiting; Translations: [Nausea with vomiting, unspecified] Episodic Nutritional deficiencies (12 sources) Vitamin D deficiency; Translations: [Vitamin D deficiency, unspecified] Onset: 03-09-2016 03-09-2016 Chronic Other upper respiratory disease (1 source) Chronic rhinitis; Translations: [Unspecified sinusitis (chronic)] Chronic Past or Other Problems Problem Classification Problem Date Documented Da te Episodic/Chronic Headache; including migraine (12 sources) Chronic daily headache; Translations: [Chronic daily headache] Onset: 01-04-2019 01-04-2019 Episodic Spondylosis; intervertebral disc disorders; other back problems (12 sources) Cervico-occipita l neuralgia; Translations: [Occipital neuralgia] Onset: 02-05-2016 02-05-2016 Episodic Results Test Name Value Interpretation Reference Range Facil ity Vital Signs Date Time Vital Sign Value Performing Clinician Joyce reid 03-23-2023 09:33-0500 Body height 160 cm Carolina Juarez APRN.CNP Work Phone: [facility] 03-23-2023 09:33-0500 Body weight 97.52 kg Carolina Juarez APRN.CNP Work Phone: [facility] 03-23-2023 09:33-0500 Diastolic blood pressure 84 mm[Hg] Carolina Juarez APRN.CNP Work Phone: [facility] 03-23-2023 09:33-0500 Heart rate 75 /min Carolina Juarez MEDICAL STAFF DIRECTOR.ELECTRIC SIGN WIRER Work Phone: [facility] 03-23-2023 09:33-0500 Systolic blood pressure 122 mm[Hg] Carolina Juarez MEDICAL STAFF DIRECTOR.ELECTRIC SIGN WIRER Work Phone: [facility] 12-20-2022 15:01-0400 Body height 160 cm Carolina Juarez MEDICAL STAFF DIRECTOR.ELECTRIC SIGN WIRER Work Phone: [facility] 12-20-2022 15:01-0400 Body weight 105.69 kg Carolina Juarez MEDICAL STAFF DIRECTOR.ELECTRIC SIGN WIRER Work Phone: [facility] 12-20-2022 15:01-0400 Diastolic blood pressure 86 mm[Hg] Carolina Juarez MEDICAL STAFF DIRECTOR.ELECTRIC SIGN WIRER Work Phone: [facility] 12-20-2022 15:01-0400 Heart rate 73 /min Carolina Juarez MEDICAL STAFF DIRECTOR.ELECTRIC SIGN WIRER Work Phone: [facility] 12-20-2022 15:01-0400 SaO2% (BldA) [Mass fraction] 97 % Carolina Juarez MEDICAL STAFF DIRECTOR.ELECTRIC SIGN WIRER Work Phone: [facility] 12-20-2022 15:01-0400 Systolic blood pressure 133 mm[Hg] Carolina Juarez MEDICAL STAFF DIRECTOR.ELECTRIC SIGN WIRER Work Phone: [facility] 12-10-2022 14:42-0400 Body temperature 99.39 [degF] Alejandro Palma MD Work Phone: [facility] 12-10-2022 14:42-0400 Body weight 107.68 kg Alejandro Palma MD Work Phone: [facility] 12-10-2022 14:42-0400 Diastolic blood pressure 84 mm[Hg] Alejandro Palma MD Work Phone: [facility] 12-10-2022 14:42-0400 Heart rate 70 /min Alejandro Palma MD Work Phone: [facility] 12-10-2022 14:42-0400 Respiratory rate 16 /min Alejandro Palma MD Work Phone: [facility] 12-10-2022 14:42-0400 SaO2% (BldA) [Mass fraction] 100 % Alejandro Palma MD Work Phone: [facility] 12-10-2022 14:42-0400 Systolic blood pressure 128 mm[Hg] Alejandro Palma MD Work Phone: [facility] 08-26-2022 07:30-0400 Body temperature 98.8 [degF] Brianda Lehman MEDICAL STAFF DIRECTOR.ELECTRIC SIGN WIRER Work Phone: [facility] 08-26-2022 07:30-0400 Body weight 114.85 kg Brianda Lehman MEDICAL STAFF DIRECTOR.ELECTRIC SIGN WIRER Work Phone: [facility] 08-26-2022 07:30-0400 Diastolic blood pressure 88 mm[Hg] Brianda Lehman MEDICAL STAFF DIRECTOR.ELECTRIC SIGN WIRER Work Phone: [facility] 08-26-2022 07:30-0400 Heart rate 96 /min Brianda Lehman MEDICAL STAFF DIRECTOR.ELECTRIC SIGN WIRER Work Phone: [facility] 08-26-2022 07:30-0400 Respiratory rate 20 /min Brianda Lehman MEDICAL STAFF DIRECTOR.ELECTRIC SIGN WIRER Work Phone: [facility] 08-26-2022 07:30-0400 SaO2% (BldA) [Mass fraction] 97 % Brianda Lehman MEDICAL STAFF DIRECTOR.ELECTRIC SIGN WIRER Work Phone: [facility] 08-26-2022 07:30-0400 Systolic blood pressure 126 mm[Hg] Brianda Lehman MEDICAL STAFF DIRECTOR.ELECTRIC SIGN WIRER Work Phone: [facility] 07-14-2022 11:45-0500 Body height 160 cm Carolina Juarez MEDICAL STAFF DIRECTOR.ELECTRIC SIGN WIRER Work Phone: [facility] 07-14-2022 11:45-0500 Body weight 113.4 kg Carolina Najdovski MEDICAL STAFF DIRECTOR.ELECTRIC SIGN WIRER Work Phone: [facility] 07-14-2022 11:45-0500 Diastolic blood pressure 82 mm[Hg] Carolina Najdovski MEDICAL STAFF DIRECTOR.ELECTRIC SIGN WIRER Work Phone: [facility] 07-14-2022 11:45-0500 Heart rate 86 /min Carolina Najdovski MEDICAL STAFF DIRECTOR.ELECTRIC SIGN WIRER Work Phone: [facility] 07-14-2022 11:45-0500 Systolic blood pressure 140 mm[Hg] Carolina Najdovski MEDICAL STAFF DIRECTOR.ELECTRIC SIGN WIRER Work Phone: [facility] 04-14-2022 10:52-0500 Body height 160 cm Carolina Najdovski MEDICAL STAFF DIRECTOR.ELECTRIC SIGN WIRER Work Phone: [facility] 04-14-2022 10:52-0500 Body weight 111.58 kg Carolina Najdovski MEDICAL STAFF DIRECTOR.ELECTRIC SIGN WIRER Work Phone: [facility] 04-14-2022 10:52-0500 Diastolic blood pressure 76 mm[Hg] Carolina Najdovski MEDICAL STAFF DIRECTOR.ELECTRIC SIGN WIRER Work Phone: [facility] 04-14-2022 10:52-0500 Heart rate 83 /min Carolina Najdovski MEDICAL STAFF DIRECTOR.ELECTRIC SIGN WIRER Work Phone: [facility] 04-14-2022 10:52-0500 Systolic blood pressure 128 mm[Hg] Carolina Najdovski MEDICAL STAFF DIRECTOR.ELECTRIC SIGN WIRER Work Phone: [facility] 10-07-2021 13:00-0400 Body weight 120.2 kg Carolina Najdovski MEDICAL STAFF DIRECTOR.ELECTRIC SIGN WIRER Work Phone: [facility] 10-07-2021 13:00-0400 Diastolic blood pressure 82 mm[Hg] Carolina Najdovski MEDICAL STAFF DIRECTOR.ELECTRIC SIGN WIRER Work Phone: [facility] 10-07-2021 13:00-0400 Heart rate 100 /min Carolina Najdovski MEDICAL STAFF DIRECTOR.ELECTRIC SIGN WIRER Work Phone: [facility] 10-07-2021 13:00-0400 Systolic blood pressure 121 mm[Hg] Carolina Juarez APRN.CNP Work Phone: [facility] Encounters Encounter Date Encounter Type Care Provider Facility Start: 03-23-2023 End: 03-23-2023 ambulatory HARSHA HERNÁNDEZ Facility:[facility] Start: 03-23-2023 End: 03-23-2023 Patient encounter procedure Carolina Juarez APRN.CNP Work Phone: Neurology Procedures Date Procedure Procedure Detail Performing Clinician Start: 12-10-2022 Urnls dip stick/tabl et rgnt auto w/o microscopy Sarahi Dennison PA-C Work Phone: Start: 12-31-2020 Adult depression screening assessment Carolina Juarez APRN.CNP Work Phone: Plan of Treatment Date Care Activity Detail Author Start: 01-13-2023 Influenza vaccination [facility] Start: 05-15-2022 DEPRESSION ASSESSMENT DEPRESSION ASSESSMENT [facility] Start: 05-15-2022 Urine microalbumin profile DTaP,Tdap,Td Vaccine (7 - Td or Tdap) [facility] Start: 01-13-2022 Influenza vaccination [facility] Start: 12-31-2021 Adult depression screening assessment DEPRESSION SCREENING [facility] Start: 05-15-2021 DEPRESSION ASSESSMENT DEPRESSION ASSESSMENT [facility] Start: 2020 Mammography [facility] Start: 2010 HPV TESTING HPV TESTING [facility] Start: 2001 PAP TESTING PAP TESTING [facility] Start: 1998 HEPATITIS C SCREENING HEPATITIS C SCREENING [facility] Start: 1998 HIV SCREENING HIV SCREENING [facility] Start: 08-18-1991 Urine microalbumin profile DTAP,TDAP,TD (6 - Tdap) [facility] Start: 1985 COVID-19 VACCINE (#1) COVID-19 VACCINE (#1) [facility] Start: 02-16-1981 COVID-19 VACCINE (#1) COVID-19 VACCINE (#1) [facility] Start: 1980 HEPATITIS B (1 of 3 - 3-dose series) HEPATITIS B (1 of 3 - 3-dose series) [facility] Start: 1980 Hepatitis B Vaccine (1 of 3 - 3-dose series) Hepatitis B Vaccine (1 of 3 - 3-dose series) [facility] Bacteria identified in Urine by Culture URINE CULTURE Microbiology Routine Urinary frequency Ordered: 12/10/2022 [facility] Work Phone: Immunizations Immunization Date Immunization Notes Care Provider Fa cili 02-15-2016 influenza, seasonal, injectable Carolina Nademetrisovski MEDICAL STAFF DIRECTOR.ELECTRIC SIGN WIRER Work Phone: [facility] 02-15-2016 influenza virus vacc ine, unspecified formulation Carolina Najdovski MEDICAL STAFF DIRECTOR.ELECTRIC SIGN WIRER Work Phone: [facility] 06-18-1992 measles, mumps and rubella virus vaccine Carolina Najdovski MEDICAL STAFF DIRECTOR.ELECTRIC SIGN WIRER Work Phone: [facility] 09-18-1985 diphtheria, tetanus toxoids and acellular pertussis vaccine Carolina Najdovski MEDICAL STAFF DIRECTOR.ELECTRIC SIGN WIRER Work Phone: [facility] 09-18-1985 trivalent poliovirus vaccine, live, oral Carolina Najdovski MEDICAL STAFF DIRECTOR.ELECTRIC SIGN WIRER Work Phone: [facility] 08-18-1982 diphtheria, tetanus toxoids and acellular pertussis vaccine Carolina Najdovski MEDICAL STAFF DIRECTOR.ELECTRIC SIGN WIRER Work Phone: [facility] 08-18-1982 measles, mumps and rubella virus vaccine Carolina Najdovski MEDICAL STAFF DIRECTOR.ELECTRIC SIGN WIRER Work Phone: [facility] 02-12-1981 diphtheria, tetanus toxoids and acellular pertussis vaccine Carolina Najdovski MEDICAL STAFF DIRECTOR.ELECTRIC SIGN WIRER Work Phone: [facility] 02-12-1981 trivalent poliovirus vaccine, live, oral Carolina Najdovski MEDICAL STAFF DIRECTOR.ELECTRIC SIGN WIRER Work Phone: [facility] 1980 diphtheria, tetanus toxoids and acellular pertussis vaccine Carolina Najdovski MEDICAL STAFF DIRECTOR.ELECTRIC SIGN WIRER Work Phone: [facility] 1980 trivalent poliovirus vaccine, live, oral Carolina Ann MEDICAL STAFF DIRECTOR.ELECTRIC SIGN WIRER Work Phone: [facility] 1980 diphtheria, tetanus toxoids and acellular pertussis vaccine Carolina Pachecofrancisca MEDICAL STAFF DIRECTOR.ELECTRIC SIGN WIRER Work Phone: [facility] 1980 trivalent poliovirus vaccine, live, oral Carolina Pachecofrancisca MEDICAL STAFF DIRECTOR.ELECTRIC SIGN WIRER Work Phone: [facility] Payers Date Payer Category Payer Unknown [employer]E SS PPO [id number] 2021-Present [phone] [address] [place] [id number] PPO [id number] 2021 Unknown [id number] 2018 Unknown [employer] BLUE CARD PPO OOS [id number] 2018-Present [phone] [address] [place] [address] PPO [id number] Social History Date Type Detail Facility Start: 09-14-2010 End: 02-17-2022 Tobacco smoking status NHIS Ex-smoker [facility] End: 05-14-2006 History of tobacco use Current smoker [facility] Start: 09-14-2010 End: 10-19-2022 Cigarettes smoked current (pack per day) - Reported 0.5 [facility] Start: 09-14-2010 End: 02-17-2022 Tobacco use and exposure Smokeless tobacco non-user [facility] Start: 10-07-2021 End: 03-23-2023 Alcohol intake Current drinker of alcohol (finding) [facility] Start: 09-14-2010 History SDOH Alcohol Comment occasional [facility] Start: 1980 Sex Assigned At Not on file [facility] End: 05-14-2006 History of tobacco use Cigarette Smoker [facility] Start: 10-19-2022 End: 12-10-2022 Tobacco use panel [facility] Adult Depression Screening Assessment 0 [facility] Clinical Notes 10-07-2021 to 03-23-2023 Patient InstructionsCarolina Juarez APRN.ELECTRIC SIGN WIRER - 03/23/2023 9:30 AM ESTPatient InstructionsCarolina Juarez APRN.CNP - 12/20/2022 3:30 PM EDTMAlejandro Enriquez MD - 12/10/2022 2:47 PM EDT Note Date & Type Note Facility 03-23-2023 Note HNO ID: [id number] Author: Carolina Juarez APRN.CNP Service: ? Author Type: Nurse Practitioner Type: Progress Notes Filed: 03/23/2023 9:55 AM Note Text: [facility]ache [facility] Follow-up Visit Impression: Chronic migraine without aura, intractable, without status migrainosus (primary encounter diagnosis) Dona Saunders has been previously approved for an Oral Calcitonin Gene-Related Peptide Receptor Antagonist (GEPANT) Rimegepant for the treatment of acute migraine. The patient has demonstrated the following: Provider attests patient has had a positive clinical response: Yes Patient will not use with another Oral Calcitonin Gene-Related Peptide Receptor Antagonist (GEPANT): Yes Patient's quality of life and ability to perform ADLs has improved: Yes The patient has tried and failed the following : We suggest the patient continue treatment with GEPANT Rimegepant. The following preventative medications have been tried for three or more months without benefit: Anti-Convulsant Topiramate (Topamax, Trokendi XL, Qudexy) Anti-Depressant and Antipsychotic Amitriptyline (Elavil) Escitalopram (Lexapro) Blood Pressure Lisinopril (Zestril) Propranolol (Inderal) Botulinum Toxin Onabotulinum Toxin A (Botox) The following abortive medications have been tried but require high frequency use which can lead to Medication Overuse Headache: Analgesic Ketorolac (Toradol) Meperidine (Demerol) Anti-Migraine Eletriptan (Relpax) Frovatriptan (Frova) Rizatriptan (Maxalt) Sumatriptan (Imitrex, Sumavel) Zolmitriptan (Zomig) Over the Counter Medications Acetaminophen (Tylenol) Acetaminophen/Aspirin/Caffeine (Excedrin, Goody?s) Ibuprofen (Advil, Motrin) Follow-Up Onabotulinum Toxin A (BotoxTM) for Migraine Indication: Chronic Intractable Migraine Referral Expiration: 05/14/2023 Prior to the initiation of the FIRST treatment with Onabotulinum Toxin A, the patient reported the following average headache frequency over the past 3 MONTHS: Number of moderate-severe migraine days/month: 20 Number of mild migraine days/month: 0 Number of headache free days/month: 10 (240 headache-free hours) Migraine severity: 02/21 After treatment with Onabotulinum Toxin A: Number of moderate-severe migraine days/month: 4 Number of mild migraine days/month: 0 Number of headache free days/month: 26 (624 headache-free hours) Migraine severity: 09/21 Patient reduction in overall migraine days: Yes Patient reduction in moderate-severe migraine days: Yes Patient reduction of headache hours by 100 hours or more: Yes (reduction of 384 hours) Individual has obtained clinical benefit deemed significant by individual or prescriber (Y/N): Yes Patient's quality of life and ability to perform ADLs has improved (Y/N): Yes Side effects: none Wearing off: Yes - 10 weeks after treatment The patient has been assessed for disorders which could contribute to breathing or swallowing difficulty, and there is no contraindication with PREEMPT Botox. There is no documented allergic reaction/hypersensitivity to any botulinum toxin and there is no active infection at proposed injection site. HEADACHE SCORES: Headache Questions 09/21/2020 12/31/2020 01/09/2022 ER visits since last office visit: 0 0 0 Hospital stays since last office visit 0 0 0 Limited ADLs in the last month: 5 4 9 Days missed from work or school in the last month: 0 0 0 Days headache pain free in the last month: 10 20 20 Days per month with ALL of the following symptoms - decreased productivity, light sensitivity and nausea: 6 8 9 Initial improvement of headache after botox injection at last visit: Much improved Much improved No change PRN medication usage in the last month: 12 9 9 Patient impression of improvement since last visit: No change Much improved No change HIT-6 09/21/2020 12/31/2020 01/09/2022 HIT-6 - - - HIT-6 67 (Severe impact) 65 (Severe impact) 61 (Severe impact) JOSSE - 2/7 SCORES 09/21/2020 12/31/2020 01/09/2022 JOSSE-2 Score 0 1 0 Migraine Specific QOL - Higher scores indicate better HRQL 08/23/2019 01/09/2022 Role Function-Restrictive Transformed Score (range: 0-100) 60 60 Role Function-Preventive Transformed Score (range: 0-100) 80 70 Emotional Function Transformed Score (range: 0-100) 46.66 60 PHQ-9 09/21/2020 12/31/2020 01/09/2022 Score 3 4 2 BP 122/84 Pulse 75 Ht 160 cm (5' 3 ) Wt 97.5 kg (215 lb) LMP 05/19/2012 BMI 38.09 kg/m? Patient name: Dona Saunders : 1980 ALLERGIES No Known Allergies UNIVERSAL PROTOCOL / SAFETY CHECKLIST Procedure: Onabotulinum toxin A for migraine Informed Consent Consent Obtained: Written [place] Protocol A moment to CARE was completed SIGN IN Personnel directly involved with the procedure wore the appropriate PPE Special Equipment: N/A Patient/Surrogate Stated/Verified: Patient name, Date of , Relevant allergies and Intended (more content not included)... [facility] 03-23-2023 Instructions Carolina Juarez APRN.[facility] - 03/23/2023 9:37 AM EST AFTER VISIT CARE BOTOX INJECTION While these procedures can be extremely helpful as part of your headache treatment plan, they can irritate the muscles and tissues in your head, neck and shoulders. Proper follow-up care is important to avoid muscle spasms and temporary pain increase within the following 3-5 days after your clinic visit. Here are some tips to help decrease side-effects that may occur and maximize the effectiveness of your pain relief -HYDRATION Hydration is important to help nourish your muscles and tissues. Drink 60-80 oz of non caffeinated fluid at least for 3 days after your visit. -REST Rest will help avoid further irritation of muscle and tissues. Remember that you need to give your body time to adjust. NO strenuous activity for at least the first 24 hours after your visit. Gentle stretching, yoga, meditation or even swimming is OK and encouraged. -ICE/HEAT Since these procedures irritate muscles, there can be some swelling. Alternating ice and heat every 3-5 times per day may help decrease this, while also optimizing pain relief Use cool gel packs for ice for 10 min. Use a warm moist towel covered with a dry towel on neck and shoulders. Alternate stretching each side of the neck. -STRETCHING Slow, gentle stretching of the neck and shoulders once every hour is helpful to avoid muscle spasms. -TREAT MUSCLE SPASMS If you are already prescribed a muscle relaxer such as baclofen, tizanidine or flexeril, use as directed. If you do not have one, talk to your provider to find out if this would be safe for you to use. Do not rub or massage the area for 48-72 hours. -OTHER No hair dyes or permanents for 24 hours. If you are paying out of pocket for Botox go online to Botox Savings Program and see if you qualify for reimbursement. Return in 3 months for your next Botox Injection documented in this encounter [facility] 03-23-2023 History of Presen t illness Narrative Headache Center Follow-up Visit Impression: Chronic migraine without aura, intractable, without status migrainosus (primary encounter diagnosis) Dona Saunders has been previously approved for an Oral Calcitonin Gene-Related Peptide Receptor Antagonist (GEPANT) Rimegepant for the treatment of acute migraine. The patient has demonstrated the following: Provider attests patient has had a positive clinical response: Yes Patient will not use with another Oral Calcitonin Gene-Related Peptide Receptor Antagonist (GEPANT): Yes Patient's quality of life and ability to perform ADLs has improved: Yes The patient has tried and failed the following : We suggest the patient continue treatment with GEPANT Rimegepant. The following preventative medications have been tried for three or more months without benefit: Anti-Convulsant Topiramate (Topamax, Trokendi XL, Qudexy) Anti-Depressant and Antipsychotic Amitriptyline (Elavil) Escitalopram (Lexapro) Blood Pressure Lisinopril (Zestril) Propranolol (Inderal) Botulinum Toxin Onabotulinum Toxin A (Botox) The following abortive medications have been tried but require high frequency use which can lead to Medication Overuse Headache: Analgesic Ketorolac (Toradol) Meperidine (Demerol) Anti-Migraine Eletriptan (Relpax) Frovatriptan (Frova) Rizatriptan (Maxalt) Sumatriptan (Imitrex, Sumavel) Zolmitriptan (Zomig) Over the Counter Medications Acetaminophen (Tylenol) Acetaminophen/Aspirin/Caffeine (Excedrin, Goody s) Ibuprofen (Advil, Motrin) Follow-Up Onabotulinum Toxin A (BotoxTM) for Migraine Indication: Chronic Intractable Migraine Referral Expiration: 05/14/2023 Prior to the initiation of the FIRST treatment with Onabotulinum Toxin A, the patient reported the following average headache frequency over the past 3 MONTHS: Number of moderate-severe migraine days/month: 20 Number of mild migraine days/month: 0 Number of headache free days/month: 10 (240 headache-free hours) Migraine severity: 02/21 After treatment with Onabotulinum Toxin A: Number of moderate-severe migraine days/month: 4 Number of mild migraine days/month: 0 Number of headache free days/month: 26 (624 headache-free hours) Migraine severity: 10 Patient reduction in overall migraine days: Yes Patient reduction in moderate-severe migraine days: Yes Patient reduction of headache hours by 100 hours or more: Yes (reduction of 384 hours) Individual has obtained clinical benefit deemed significant by individual or prescriber (Y/N): Yes Patient's quality of life and ability to perform ADLs has improved (Y/N): Yes Side effects: none Wearing off: Yes - 10 weeks after treatment The patient has been assessed for disorders which could contribute to breathing or swallowing difficulty, and there is no contraindication with PREEMPT Botox. There is no documented allergic reaction/hypersensitivity to any botulinum toxin and there is no active infection at proposed injection site. HEADACHE SCORES: Headache Questions 09/21/2020 12/31/2020 01/09/2022 ER visits since last office visit: 0 0 0 Hospital stays since last office visit 0 0 0 Limited ADLs in the last month: 5 4 9 Days missed from work or school in the last month: 0 0 0 Days headache pain free in the last month: 10 20 20 Days per month with ALL of the following symptoms - decreased productivity, light sensitivity and nausea: 6 8 9 Initial improvement of headache after botox injection at last visit: Much improved Much improved No change PRN medication usage in the last month: 12 9 9 Patient impression of improvement since last visit: No change Much improved No change HIT-6 09/21/2020 12/31/2020 01/09/2022 HIT-6 - - - HIT-6 67 (Severe impact) 65 (Severe impact) 61 (Severe impact) JOSSE - 2/7 SCORES 09/21/2020 12/31/2020 01/09/2022 JOSSE-2 Score 0 1 0 Migraine Specific QOL - Higher scores indicate better HRQL 08/23/2019 01/09/2022 Role Function-Restrictive Transformed Score (range: 0-100) 60 60 Role Function-Preventive Transformed Score (range: 0-100) 80 70 Emotional Function Transformed Score (range: 0-100) 46.66 60 PHQ-9 09/21/2020 12/31/2020 01/09/2022 Score 3 4 2 BP 122/84 Pulse 75 Ht 160 cm (5' 3 ) Wt 97.5 kg (215 lb) LMP 05/19/2012 BMI 38.09 kg/m Patient name: Dona Saunders : 1980 ALLERGIES No Known Allergies UNIVERSAL PROTOCOL / SAFETY CHECKLIST Procedure: Onabotulinum toxin A for migraine Informed Consent Consent Obtained: Written [place] Protocol A moment to CARE was completed SIGN IN Personnel directly involved with the procedure wore the appropriate PPE Special Equipment: N/A Patient/Surrogate Stated/Verified: Patient name, Date of , Relevant allergies and Intended procedure TIME OUT Intended patient and procedure match the source document(s) Consent documented and matches the intended procedure No relevant labs, photos, and/or imaging studies were applicable for review. No correct side/site applicable for marking and visibility. No medications required for procedure. No fire risk assessment and interventions applicable. No implant(s) inserted. SIGN OUT No specimen collected. No instruments, equipment or retained foreign bodies applicable. Post-procedure follow-up management communicated and Plan of Care Visit completed when applicable Written Consent Obtained: Written LOT #: [id number] Expiration Date: Month: 3 Year: 2025 Second vial: LOT #: [id number] Expiration Date: Month: 3 Year: 2025 Injection Sites Left (Units) Left (Sites) Right (Units) Right (Sites) TOTAL (Units) Barrel Assembler 5 1 5 1 10 Procerus Units: 5 Sites: 1 5 Frontalis 10 2 10 2 20 Temporalis optional follow the pain 20 5 4 1 20 5 4 1 50 Occipitalis optional follow the pain 15 5 3 1 15 5 3 1 40 Cervical PSP 10 2 10 2 20 Trapezius optional follow the pain 15 12.5 3 3 15 12.5 3 3 55 Total Units used: 200 Total Units wasted: 0 Patient tolerated procedure well. Prior Therapies Duration of Use Dose Side effect Analgesic Ketorolac (Toradol) Meperidine (Demerol) Anti-Convulsant Topiramate (Topamax, Trokendi XL, Qudexy) Anti-Depressant and Antipsychotic Amitriptyline (Elavil) Escitalopram (Lexapro) Antiemetics Promethazine Anti-Migraine Eletriptan (Relpax) Frovatriptan (Frova) Rizatriptan (Maxalt) Sumatriptan (Imitrex, Sumavel) Zolmitriptan (Zomig) Blood Pressure Lisinopril (Zestril) Propranolol (Inderal) Botulinum Toxin Onabotulinum Toxin A (Botox) Over the Counter Medications Acetaminophen (Tylenol) Acetaminophen/Aspirin/Caffeine (Excedrin, Goody s) Ibuprofen (Advil, Motrin) Carolina Juarez APRN.ELECTRIC SIGN WIRER documented in this encounter [facility] 12-20-2022 Note HNO ID: [id number] Author: Carolina Juarez APRN.ELECTRIC SIGN WIRER Service: ? Author Type: Nurse Practitioner Type: Progress Notes Filed: 12/20/2022 3:51 PM Note Text: Headache Center Follow-up Visit Dona Saunders has been previously approved for an Oral Calcitonin Gene-Related Peptide Receptor Antagonist (GEPANT) Rimegepant for the treatment of acute migraine. The patient has demonstrated the following: Provider attests patient has had a positive clinical response: Yes Patient will not use with another Oral Calcitonin Gene-Related Peptide Receptor Antagonist (GEPANT): Yes Patient's quality of life and ability to perform ADLs has improved: Yes We suggest the patient continue treatment with GEPANT Rimegepant. The following preventative medications have been tried for three or more months without benefit: Anti-Convulsant Topiramate (Topamax, Trokendi XL, Qudexy) Anti-Depressant and Antipsychotic Amitriptyline (Elavil) Escitalopram (Lexapro) Blood Pressure Lisinopril (Zestril) Propranolol (Inderal) Botulinum Toxin Onabotulinum Toxin A (Botox) The following abortive medications have been tried but require high frequency use which can lead to Medication Overuse Headache: Analgesic Ketorolac (Toradol) Meperidine (Demerol) Anti-Migraine Eletriptan (Relpax) Frovatriptan (Frova) Rizatriptan (Maxalt) Sumatriptan (Imitrex, Sumavel) Zolmitriptan (Zomig) Over the Counter Medications Acetaminophen (Tylenol) Acetaminophen/Aspirin/Caffeine (Excedrin, Goody?s) Ibuprofen (Advil, Motrin) Follow-Up Onabotulinum Toxin A (BotoxTM) for Migraine Indication: Chronic Intractable Migraine Referral Expiration: 05/14/2023 Prior to the initiation of the FIRST treatment with Onabotulinum Toxin A, the patient reported the following average headache frequency over the past 3 MONTHS: Number of moderate-severe migraine days/month: 20 Number of mild migraine days/month: 0 Number of headache free days/month: 10 (240 headache-free hours) Migraine severity: 10/10 After treatment with Onabotulinum Toxin A: Number of moderate-severe migraine days/month: 9 Number of mild migraine days/month: 1 Number of headache free days/month: 20 (480 headache-free hours) Migraine severity: 5/10 Patient reduction in overall migraine days: Yes Patient reduction in moderate-severe migraine days: Yes Patient reduction of headache hours by 100 hours or more: Yes (reduction of 240 hours) Individual has obtained clinical benefit deemed significant by individual or prescriber (Y/N): Yes Patient's quality of life and ability to perform ADLs has improved (Y/N): Yes Side effects: none Wearing off: Yes - 10 weeks after treatment The patient has been assessed for disorders which could contribute to breathing or swallowing difficulty, and there is no contraindication with PREEMPT Botox. There is no documented allergic reaction/hypersensitivity to any botulinum toxin and there is no active infection at proposed injection site. HEADACHE SCORES: Headache Questions 09/21/2020 12/31/2020 01/09/2022 ER visits since last office visit: 0 0 0 Hospital stays since last office visit 0 0 0 Limited ADLs in the last month: 5 4 9 Days missed from work or school in the last month: 0 0 0 Days headache pain free in the last month: 10 20 20 Days per month with ALL of the following symptoms - decreased productivity, light sensitivity and nausea: 6 8 9 Initial improvement of headache after botox injection at last visit: Much improved Much improved No change PRN medication usage in the last month: 12 9 9 Patient impression of improvement since last visit: No change Much improved No change HIT-6 09/21/2020 12/31/2020 01/09/2022 HIT-6 - - - HIT-6 67 (Severe impact) 65 (Severe impact) 61 (Severe impact) JOSSE - 2/7 SCORES 09/21/2020 12/31/2020 01/09/2022 JOSSE-2 Score 0 1 0 Migraine Specific QOL - Higher scores indicate better HRQL 08/23/2019 01/09/2022 Role Function-Restrictive Transformed Score (range: 0-100) 60 60 Role Function-Preventive Transformed Score (range: 0-100) 80 70 Emotional Function Transformed Score (range: 0-100) 46.66 60 PHQ-9 09/21/2020 12/31/2020 01/09/2022 Score 3 4 2 BP 133/86 (BP Site: Left Arm) Pulse 73 Ht 160 cm (5' 3 ) Wt 105.7 kg (233 lb) LMP 05/19/2012 SpO2 97% BMI 41.27 kg/m? Patient name: Dona Saunders : 1980 ALLERGIES No Known Allergies UNIVERSAL PROTOCOL / SAFETY CHECKLIST Procedure: Onabotulinum toxin A for migraine Informed Consent Consent Obtained: Written [place] Protocol A moment to CARE was completed SIGN IN Personnel directly involved with the procedure wore the appropriate PPE Special Equipment: N/A Patient/Surrogate Stated/Verified: Patient name, Date of , Relevant allergies and Intended procedure TIME OUT Intended patient and procedure match the source document(s) Consent documented and matches the intended procedure (more content not included)... [facility] 12-20-2022 Instructions Carolina Juarez APRN.MARCELLUS - 12/20/2022 3:34 PM EDT AFTER VISIT CARE BOTOX INJECTION While these procedures can be extremely helpful as part of your headache treatment plan, they can irritate the muscles and tissues in your head, neck and shoulders. Proper follow-up care is important to avoid muscle spasms and temporary pain increase within the following 3-5 days after your clinic visit. Here are some tips to help decrease side-effects that may occur and maximize the effectiveness of your pain relief -HYDRATION Hydration is important to help nourish your muscles and tissues. Drink 60-80 oz of non caffeinated fluid at least for 3 days after your visit. -REST Rest will help avoid further irritation of muscle and tissues. Remember that you need to give your body time to adjust. NO strenuous activity for at least the first 24 hours after your visit. Gentle stretching, yoga, meditation or even swimming is OK and encouraged. -ICE/HEAT Since these procedures irritate muscles, there can be some swelling. Alternating ice and heat every 3-5 times per day may help decrease this, while also optimizing pain relief Use cool gel packs for ice for 10 min. Use a warm moist towel covered with a dry towel on neck and shoulders. Alternate stretching each side of the neck. -STRETCHING Slow, gentle stretching of the neck and shoulders once every hour is helpful to avoid muscle spasms. -TREAT MUSCLE SPASMS If you are already prescribed a muscle relaxer such as baclofen, tizanidine or flexeril, use as directed. If you do not have one, talk to your provider to find out if this would be safe for you to use. Do not rub or massage the area for 48-72 hours. -OTHER No hair dyes or permanents for 24 hours. If you are paying out of pocket for Botox go online to Botox Savings Program and see if you qualify for reimbursement. Return in 3 months for your next Botox Injection documented in this encounter [facility] 12-20-2022 History of Presen t illness Narrative Headache Center Follow-up Visit Dona Saunders has been previously approved for an Oral Calcitonin Gene-Related Peptide Receptor Antagonist (GEPANT) Rimegepant for the treatment of acute migraine. The patient has demonstrated the following: Provider attests patient has had a positive clinical response: Yes Patient will not use with another Oral Calcitonin Gene-Related Peptide Receptor Antagonist (GEPANT): Yes Patient's quality of life and ability to perform ADLs has improved: Yes We suggest the patient continue treatment with GEPANT Rimegepant. The following preventative medications have been tried for three or more months without benefit: Anti-Convulsant Topiramate (Topamax, Trokendi XL, Qudexy) Anti-Depressant and Antipsychotic Amitriptyline (Elavil) Escitalopram (Lexapro) Blood Pressure Lisinopril (Zestril) Propranolol (Inderal) Botulinum Toxin Onabotulinum Toxin A (Botox) The following abortive medications have been tried but require high frequency use which can lead to Medication Overuse Headache: Analgesic Ketorolac (Toradol) Meperidine (Demerol) Anti-Migraine Eletriptan (Relpax) Frovatriptan (Frova) Rizatriptan (Maxalt) Sumatriptan (Imitrex, Sumavel) Zolmitriptan (Zomig) Over the Counter Medications Acetaminophen (Tylenol) Acetaminophen/Aspirin/Caffeine (Excedrin, Goody s) Ibuprofen (Advil, Motrin) Follow-Up Onabotulinum Toxin A (BotoxTM) for Migraine Indication: Chronic Intractable Migraine Referral Expiration: 05/14/2023 Prior to the initiation of the FIRST treatment with Onabotulinum Toxin A, the patient reported the following average headache frequency over the past 3 MONTHS: Number of moderate-severe migraine days/month: 20 Number of mild migraine days/month: 0 Number of headache free days/month: 10 (240 headache-free hours) Migraine severity: 1010 After treatment with Onabotulinum Toxin A: Number of moderate-severe migraine days/month: 9 Number of mild migraine days/month: 1 Number of headache free days/month: 20 (480 headache-free hours) Migraine severity: 5/10 Patient reduction in overall migraine days: Yes Patient reduction in moderate-severe migraine days: Yes Patient reduction of headache hours by 100 hours or more: Yes (reduction of 240 hours) Individual has obtained clinical benefit deemed significant by individual or prescriber (Y/N): Yes Patient's quality of life and ability to perform ADLs has improved (Y/N): Yes Side effects: none Wearing off: Yes - 10 weeks after treatment The patient has been assessed for disorders which could contribute to breathing or swallowing difficulty, and there is no contraindication with PREEMPT Botox. There is no documented allergic reaction/hypersensitivity to any botulinum toxin and there is no active infection at proposed injection site. HEADACHE SCORES: Headache Questions 09/21/2020 12/31/2020 01/09/2022 ER visits since last office visit: 0 0 0 Hospital stays since last office visit 0 0 0 Limited ADLs in the last month: 5 4 9 Days missed from work or school in the last month: 0 0 0 Days headache pain free in the last month: 10 20 20 Days per month with ALL of the following symptoms - decreased productivity, light sensitivity and nausea: 6 8 9 Initial improvement of headache after botox injection at last visit: Much improved Much improved No change PRN medication usage in the last month: 12 9 9 Patient impression of improvement since last visit: No change Much improved No change HIT-6 09/21/2020 12/31/2020 01/09/2022 HIT-6 - - - HIT-6 67 (Severe impact) 65 (Severe impact) 61 (Severe impact) JOSSE - 2/7 SCORES 09/21/2020 12/31/2020 01/09/2022 JOSSE-2 Score 0 1 0 Migraine Specific QOL - Higher scores indicate better HRQL 08/23/2019 01/09/2022 Role Function-Restrictive Transformed Score (range: 0-100) 60 60 Role Function-Preventive Transformed Score (range: 0-100) 80 70 Emotional Function Transformed Score (range: 0-100) 46.66 60 PHQ-9 09/21/2020 12/31/2020 01/09/2022 Score 3 4 2 BP 133/86 (BP Site: Left Arm) Pulse 73 Ht 160 cm (5' 3 ) Wt 105.7 kg (233 lb) LMP 05/19/2012 SpO2 97% BMI 41.27 kg/m Patient name: Dona Saunders : 1980 ALLERGIES No Known Allergies UNIVERSAL PROTOCOL / SAFETY CHECKLIST Procedure: Onabotulinum toxin A for migraine Informed Consent Consent Obtained: Written [place] Protocol A moment to CARE was completed SIGN IN Personnel directly involved with the procedure wore the appropriate PPE Special Equipment: N/A Patient/Surrogate Stated/Verified: Patient name, Date of , Relevant allergies and Intended procedure TIME OUT Intended patient and procedure match the source document(s) Consent documented and matches the intended procedure No relevant labs, photos, and/or imaging studies were applicable for review. No correct side/site applicable for marking and visibility. No medications required for procedure. No fire risk assessment and interventions applicable. No implant(s) inserted. SIGN OUT No specimen collected. No instruments, equipment or retained foreign bodies applicable. Post-procedure follow-up management communicated and Plan of Care Visit completed when applicable Written Consent Obtained: Written LOT #: [id number] Expiration Date: Month: Year: 2024 Second vial: LOT #: [id number] Expiration Date: Month: Year: 2024 Injection Sites Left (Units) Left (Sites) Right (Units) Right (Sites) TOTAL (Units) Barrel Assembler 5 1 5 1 10 Procerus Units: 5 Sites: 1 5 Frontalis 10 2 10 2 20 Temporalis optional follow the pain 20 5 4 1 20 5 4 1 50 Occipitalis optional follow the pain 15 5 3 1 15 5 3 1 40 Cervical PSP 10 2 10 2 20 Trapezius optional follow the pain 15 12.5 3 3 15 12.5 3 3 55 Total Units used: 200 Total Units wasted: 0 Patient tolerated procedure well. Prior Therapies Duration of Use Dose Side effect Analgesic Ketorolac (Toradol) Meperidine (Demerol) Anti-Convulsant Topiramate (Topamax, Trokendi XL, Qudexy) Anti-Depressant and Antipsychotic Amitriptyline (Elavil) Escitalopram (Lexapro) Antiemetics Promethazine Anti-Migraine Eletriptan (Relpax) Frovatriptan (Frova) Rizatriptan (Maxalt) Sumatriptan (Imitrex, Sumavel) Zolmitriptan (Zomig) Blood Pressure Lisinopril (Zestril) Propranolol (Inderal) Botulinum Toxin Onabotulinum Toxin A (Botox) Over the Counter Medications Acetaminophen (Tylenol) Acetaminophen/Aspirin/Caffeine (Excedrin, Goody s) Ibuprofen (Advil, Motrin) Carolina Juarez APRN.MARCELLUS documented in this encounter [facility] 12-12-2022 Miscellaneous Notes Patient given results and verbalized understanding of instructions given. Laure Rutherford No growth on urine culture. Patient should follow-up with primary care provider to make sure the blood is cleared from her urine. If patient symptoms are worsening she should also follow-up with primary care. documented in this encounter [facility] 12-10-2022 Note HNO ID: [id number] Author: Alejandro Palma MD Service: ? Author Type: Physician Type: Progress Notes Filed: 12/10/2022 3:16 PM Note Text: Patient presents with: Urinary Frequency: Frequency and burning x 5 days HPI: Symptoms for 5 days. Dysuria: Yes Frequency: Yes, urgency Discharge: No Hematuria: No Nausea: No Fever or chills: No Back pain: No Abdominal pain: had right lower abdominal discomfort earlier (right ovary pain) Prior UTI: No Personal history of kidney stones: No MEDICATIONS: Current Outpatient Medications Medication Sig ondansetron (ZOFRAN) 4 mg tablet Take 1-2 tabs every 8 hours as needed for nausea. rimegepant (NURTEC ODT) 75 mg disintegrating tablet Take 1 dissolvable tablet by mouth as needed at migraine onset. Take only 1 tablet per 24 hours. rizatriptan (MAXALT) 10 mg tablet TAKE 1 TABLET BY MOUTH AT ONSET OF MIGRAINE. MAY REPEAT ONCE IN 2 HOURS IF NEEDED. MAX 2 DOSES IN 24 HOURS AND 9 DAYS A MONTH lisinopril (ZESTRIL, PRINIVIL) 10 mg tablet Take by mouth once daily. cyanocobalamin, vitamin B-12, (VITAMIN B-12 ORAL) Take by mouth once daily. levonorgestrel (MIRENA) 20 mcg/24 hours (8 yrs) 52 mg IUD 1 Each by INTRAUTERINE route one time only. No current facility-administered medications for this visit. ALLERGIES: ALLERGIES No Known Allergies VITALS: BP 128/84 Pulse 70 Temp 37.4 ?C (99.4 ?F) (Tympanic) Resp 16 Wt 107.7 kg (237 lb 6.4 oz) LMP 05/19/2012 SpO2 100% BMI 42.05 kg/m? PHYSICAL EXAM: GEN: NAD HEENT: EOMI, conjunctiva clear, HEART: regular rate and rhythm, no murmurs LUNGS: clear to auscultation, no wheezes or crackles, no increased WOB ABDOMEN: Soft, nondistended, no masses, left and mid suprapubic tenderness BACK: No CVA tenderness ASSESSMENT/PLAN: 1. Urinary frequency - ICD9: 788.41, ICD10: R35.0 - UA DIP, URINE (POC) -trace blood and leukocyte esterase. Suspect urinary tract infection. - URINE CULTURE - NITROFURANTOIN MONOHYDRATE AND MACROCRYSTAL 100 MG ORAL CAP Alejandro Palma MD [facility] 12-10-2022 History of Presen t illness Narrative Patient presents with: Urinary Frequency: Frequency and burning x 5 days HPI: Symptoms for 5 days. Dysuria: Yes Frequency: Yes, urgency Discharge: No Hematuria: No Nausea: No Fever or chills: No Back pain: No Abdominal pain: had right lower abdominal discomfort earlier (right ovary pain) Prior UTI: No Personal history of kidney stones: No MEDICATIONS: Current Outpatient Medications Medication Sig ondansetron (ZOFRAN) 4 mg tablet Take 1-2 tabs every 8 hours as needed for nausea. rimegepant (NURTEC ODT) 75 mg disintegrating tablet Take 1 dissolvable tablet by mouth as needed at migraine onset. Take only 1 tablet per 24 hours. rizatriptan (MAXALT) 10 mg tablet TAKE 1 TABLET BY MOUTH AT ONSET OF MIGRAINE. MAY REPEAT ONCE IN 2 HOURS IF NEEDED. MAX 2 DOSES IN 24 HOURS AND 9 DAYS A MONTH lisinopril (ZESTRIL, PRINIVIL) 10 mg tablet Take by mouth once daily. cyanocobalamin, vitamin B-12, (VITAMIN B-12 ORAL) Take by mouth once daily. levonorgestrel (MIRENA) 20 mcg/24 hours (8 yrs) 52 mg IUD 1 Each by INTRAUTERINE route one time only. No current facility-administered medications for this visit. ALLERGIES: ALLERGIES No Known Allergies VITALS: BP 128/84 Pulse 70 Temp 37.4 C (99.4 F) (Tympanic) Resp 16 Wt 107.7 kg (237 lb 6.4 oz) LMP 05/19/2012 SpO2 100% BMI 42.05 kg/m PHYSICAL EXAM: GEN: NAD HEENT: EOMI, conjunctiva clear, HEART: regular rate and rhythm, no murmurs LUNGS: clear to auscultation, no wheezes or crackles, no increased WOB ABDOMEN: Soft, nondistended, no masses, left and mid suprapubic tenderness BACK: No CVA tenderness ASSESSMENT/PLAN: 1. Urinary frequency - ICD9: 788.41, ICD10: R35.0 - UA DIP, URINE (POC) -trace blood and leukocyte esterase. Suspect urinary tract infection. - URINE CULTURE - NITROFURANTOIN MONOHYDRATE & MACROCRYSTAL 100 MG ORAL CAP Alejandro Palma MD documented in this encounter [facility] 08-26-2022 Note HNO ID: [id number] Author: Brianda Lehman APRN.ELECTRIC SIGN WIRER Service: ? Author Type: Nurse Practitioner Type: Progress Notes Filed: 08/26/2022 9:35 AM Note Text: This note was created using NoteWriter. Subjective Dona Saunders is a 42 year old female. 42 year old female with PMH migraines, HTN and GERD presents for complaints of illness. Acute onset 3 weeks ago +sore throat + congestion +fever +headache + sinus pressure. +cough, harsh cough that makes her have bouts of emesis. Denies tobacco usage Honey and ice chips. She has recently started taking dayQuil and Nyquil, but not much relief. She states that after about a week, symptoms seemed to improve, but over the past 4 days the symptoms have significantly worsened. The history is provided by the patient. No language assistant was used. Cough This is a new problem. The current episode started more than 1 week ago. The problem occurs constantly. The problem has been gradually worsening. The cough is Non-productive (bouts of emesis). There has been no fever. Associated symptoms include ear congestion, headaches and sore throat. Pertinent negatives include no chest pain, no chills, no sweats, no weight loss, no ear pain, no rhinorrhea, no myalgias, no shortness of breath, no wheezing and no eye redness. She has tried decongestants for the symptoms. The treatment provided no relief. She is not a smoker. Her past medical history does not include bronchitis, pneumonia, bronchiectasis, COPD, emphysema or asthma. PAST MEDICAL HISTORY Diagnosis Date Anemia Anxiety Depression Erythroderma HTN (hypertension) IBS (irritable bowel syndrome) Migraines Vitamin D deficiency PAST SURGICAL HISTORY Procedure Laterality Date ADENOIDECTOMY PRIMARY Adenoidectomy EXCISION GANGLION WRIST DORSAL/VOLAR PRIMARY left wrist TONSILLECTOMY PRIMARY/SECONDARY Tonsillectomy ALLERGIES Patient has no known allergies. MEDICATIONS ondansetron (ZOFRAN) 4 mg tablet Take 1-2 tabs every 8 hours as needed for nausea. rimegepant (NURTEC ODT) 75 mg disintegrating tablet Take 1 dissolvable tablet by mouth as needed at migraine onset. Take only 1 tablet per 24 hours. rizatriptan (MAXALT) 10 mg tablet TAKE 1 TABLET BY MOUTH AT ONSET OF MIGRAINE. MAY REPEAT ONCE IN 2 HOURS IF NEEDED. MAX 2 DOSES IN 24 HOURS AND 9 DAYS A MONTH lisinopril (ZESTRIL, PRINIVIL) 10 mg tablet Take by mouth once daily. cyanocobalamin, vitamin B-12, (VITAMIN B-12 ORAL) Take by mouth once daily. levonorgestrel (MIRENA) 20 mcg/24 hours (8 yrs) 52 mg IUD 1 Each by INTRAUTERINE route one time only. amoxicillin-clavulanic acid (AUGMENTIN) 875-125 mg per tablet Take 1 tablet by mouth twice daily for 7 days. predniSONE (DELTASONE) 10 mg tablet Take 4 tabs daily for 3 days, then 2 tabs daily for 3 days, then 1 tab daily for 3 days with food. FAMILY HISTORY Problem Relation Age of Onset other (Eczema [Other]) Daughter other (Eczema [Other]) Daughter other (allergy [Other]) Mother bee stings other (unknown [Other]) Father other (unknown [Other]) Sister other (Migraine [Other]) Maternal Grandmother Social History Tobacco Use Smoking status: Former Packs/day: 0.50 Years: 7.00 Pack years: 3.50 Types: Cigarettes Quit date: 05/14/2006 Years since quittin.2 Smokeless tobacco: Never Substance Use Topics Alcohol use: Yes Comment: occasional Drug use: No Review of Systems Constitutional: Negative for chills and weight loss. HENT: Positive for sore throat. Negative for ear pain and rhinorrhea. Eyes: Negative for redness. Respiratory: Positive for cough. Negative for shortness of breath and wheezing. Cardiovascular: Negative for chest pain. Musculoskeletal: Negative for myalgias. Neurological: Positive for headaches. Objective BP 126/88 Pulse 96 Temp 37.1 ?C (98.8 ?F) Resp 20 Wt 114.9 kg (253 lb 3.2 oz) LMP 05/19/2012 SpO2 97% BMI 44.85 kg/m? Physical Exam Vitals and nursing note reviewed. Constitutional: General: She is not in acute distress. Appearance: Normal appearance. She is normal weight. She is not ill-appearing, toxic-appearing or diaphoretic. HENT: Head: Normocephalic and atraumatic. Comments: +frontal sinus pressure Right Ear: Ear canal and external ear normal. Left Ear: Ear canal and external ear normal. Ears: Comments: Bilateral TMs erythematous Nose: Nose normal. No congestion or rhinorrhea. Mouth/Throat: Mouth: Mucous membranes are moist. Pharynx: No oropharyngeal exudate or posterior oropharyngeal erythema. Eyes: General: Right eye: No discharge. Left eye: No discharge. Extraocular Movements: Extraocular movements intact. Conjunctiva/sclera: Conjunctivae normal. Pupils: Pupils are equal, round, and reactive to light. Cardiovascular: Rate and Rhythm: Normal rate and regular rhythm. Pulses: Normal pulses. Heart sounds: Normal heart sounds. No murmur heard. No (more content not included)... [facility] 08-26-2022 History of Presen t illness Narrative This note was created using [employer]. Subjective Dona Saunders is a 42 year old female. 42 year old female with PMH migraines, HTN and GERD presents for complaints of illness. Acute onset 3 weeks ago +sore throat + congestion +fever +headache + sinus pressure. +cough, harsh cough that makes her have bouts of emesis. Denies tobacco usage Honey and ice chips. She has recently started taking dayQuil and Nyquil, but not much relief. She states that after about a week, symptoms seemed to improve, but over the past 4 days the symptoms have significantly worsened. The history is provided by the patient. No language assistant was used. Cough This is a new problem. The current episode started more than 1 week ago. The problem occurs constantly. The problem has been gradually worsening. The cough is Non-productive (bouts of emesis). There has been no fever. Associated symptoms include ear congestion, headaches and sore throat. Pertinent negatives include no chest pain, no chills, no sweats, no weight loss, no ear pain, no rhinorrhea, no myalgias, no shortness of breath, no wheezing and no eye redness. She has tried decongestants for the symptoms. The treatment provided no relief. She is not a smoker. Her past medical history does not include bronchitis, pneumonia, bronchiectasis, COPD, emphysema or asthma. PAST MEDICAL HISTORY Diagnosis Date Anemia Anxiety Depression Erythroderma HTN (hypertension) IBS (irritable bowel syndrome) Migraines Vitamin D deficiency PAST SURGICAL HISTORY Procedure Laterality Date ADENOIDECTOMY PRIMARY <AGE 12 Adenoidectomy EXCISION GANGLION WRIST DORSAL/VOLAR PRIMARY left wrist TONSILLECTOMY PRIMARY/SECONDARY <AGE 12 Tonsillectomy ALLERGIES Patient has no known allergies. MEDICATIONS ondansetron (ZOFRAN) 4 mg tablet Take 1-2 tabs every 8 hours as needed for nausea. rimegepant (NURTEC ODT) 75 mg disintegrating tablet Take 1 dissolvable tablet by mouth as needed at migraine onset. Take only 1 tablet per 24 hours. rizatriptan (MAXALT) 10 mg tablet TAKE 1 TABLET BY MOUTH AT ONSET OF MIGRAINE. MAY REPEAT ONCE IN 2 HOURS IF NEEDED. MAX 2 DOSES IN 24 HOURS AND 9 DAYS A MONTH lisinopril (ZESTRIL, PRINIVIL) 10 mg tablet Take by mouth once daily. cyanocobalamin, vitamin B-12, (VITAMIN B-12 ORAL) Take by mouth once daily. levonorgestrel (MIRENA) 20 mcg/24 hours (8 yrs) 52 mg IUD 1 Each by INTRAUTERINE route one time only. amoxicillin-clavulanic acid (AUGMENTIN) 875-125 mg per tablet Take 1 tablet by mouth twice daily for 7 days. predniSONE (DELTASONE) 10 mg tablet Take 4 tabs daily for 3 days, then 2 tabs daily for 3 days, then 1 tab daily for 3 days with food. FAMILY HISTORY Problem Relation Age of Onset other (Eczema [Other]) Daughter other (Eczema [Other]) Daughter other (allergy [Other]) Mother bee stings other (unknown [Other]) Father other (unknown [Other]) Sister other (Migraine [Other]) Maternal Grandmother Social History Tobacco Use Smoking status: Former Packs/day: 0.50 Years: 7.00 Pack years: 3.50 Types: Cigarettes Quit date: 05/14/2006 Years since quittin.2 Smokeless tobacco: Never Substance Use Topics Alcohol use: Yes Comment: occasional Drug use: No Review of Systems Constitutional: Negative for chills and weight loss. HENT: Positive for sore throat. Negative for ear pain and rhinorrhea. Eyes: Negative for redness. Respiratory: Positive for cough. Negative for shortness of breath and wheezing. Cardiovascular: Negative for chest pain. Musculoskeletal: Negative for myalgias. Neurological: Positive for headaches. Objective BP 126/88 Pulse 96 Temp 37.1 C (98.8 F) Resp 20 Wt 114.9 kg (253 lb 3.2 oz) LMP 05/19/2012 SpO2 97% BMI 44.85 kg/m Physical Exam Vitals and nursing note reviewed. Constitutional: General: She is not in acute distress. Appearance: Normal appearance. She is normal weight. She is not ill-appearing, toxic-appearing or diaphoretic. HENT: Head: Normocephalic and atraumatic. Comments: +frontal sinus pressure Right Ear: Ear canal and external ear normal. Left Ear: Ear canal and external ear normal. Ears: Comments: Bilateral TMs erythematous Nose: Nose normal. No congestion or rhinorrhea. Mouth/Throat: Mouth: Mucous membranes are moist. Pharynx: No oropharyngeal exudate or posterior oropharyngeal erythema. Eyes: General: Right eye: No discharge. Left eye: No discharge. Extraocular Movements: Extraocular movements intact. Conjunctiva/sclera: Conjunctivae normal. Pupils: Pupils are equal, round, and reactive to light. Cardiovascular: Rate and Rhythm: Normal rate and regular rhythm. Pulses: Normal pulses. Heart sounds: Normal heart sounds. No murmur heard. No friction rub. Pulmonary: Effort: Pulmonary effort is normal. No respiratory distress. Breath sounds: Normal breath sounds. No stridor. No wheezing, rhonchi or rales. Comments: Harsh cough noted Chest: Chest wall: No tenderness. Abdominal: General: Abdomen is flat. There is no distension. Palpations: Abdomen is soft. There is no mass. Tenderness: There is no abdominal tenderness. There is no right CVA tenderness, left CVA tenderness, guarding or rebound. Hernia: No hernia is present. Musculoskeletal: General: No swelling, tenderness, deformity or signs of injury. Normal range of motion. Cervical back: Normal range of motion and neck supple. No rigidity. Right lower leg: No edema. Left lower leg: No edema. Lymphadenopathy: Cervical: No cervical adenopathy. Skin: General: Skin is warm and dry. Capillary Refill: Capillary refill takes less than 2 seconds. Coloration: Skin is not jaundiced or pale. Findings: No bruising, erythema, lesion or rash. Neurological: General: No focal deficit present. Mental Status: She is alert and oriented to person, place, and time. Cranial Nerves: No cranial nerve deficit. Sensory: No sensory deficit. Motor: No weakness. Coordination: Coordination normal. Gait: Gait normal. Psychiatric: Mood and Affect: Mood normal. Behavior: Behavior normal. Thought Content: Thought content normal. Judgment: Judgment normal. Assessment and Plan ASSESSMENT/PLAN: 1. Rhinosinusitis - ICD9: 473.9, ICD10: J31.0, J32.9 X 3 weeks, worsening - Will begin treatment with as per antibiotic as written, see orders - The patient should also be given OTC cough and cold meds as needed, warm salt water gargles, throat lozenges and/or OTC throat spray as needed, and nasal saline gtts and suction prn for the first 5-7 days of treatment. - Supportive care with plenty of fluids, rest, and analgesia prn. - Follow up in 3-5 days if symptoms persist or worsen. Brianda Lehman APRN.ELECTRIC SIGN WIRER documented in this encounter [facility] 07-21-2022 Miscellaneous Notes PA submitted via covermymeds. Nurtec Dona Sheryl Saunders ([place]: [id number]) This request has been approved. Outcome Approved today CaseId:[id number];Status:Approved; Review Type:Prior Auth;Coverage Start Date:06/21/2022; Coverage End Date:07/21/2023; Drug Nurtec 75MG dispersible tablets Joel Doyle RN July 21, 2022 9:02 AM Prior Authorization for Medications Requested by (MyChart, Pharmacy, Patient Call, Fax) : Fax Pharmacy Name: [facility] Phone # : [phone] Name of Medication : Nurtec ODT Dose : 75mg If renewal, auth date expiration: NA Prescribing Provider: Ann Last OV: 07/14/22 with Ann Insurance Provider : Joya/ [employer] Is insurance card scanned in, including Rx info? Yes Rx ID number: [id number] Rx BIN: [id number] Rx PCN: NA Rx Grp: [id number] Insurance CoverMyMeds [place]: [id number] E-PA? Yes documented in this encounter [facility] 07-14-2022 Instructions Carolina Juarez APRN.CNP - 07/14/2022 11:48 AM EST AFTER VISIT CARE BOTOX INJECTION While these procedures can be extremely helpful as part of your headache treatment plan, they can irritate the muscles and tissues in your head, neck and shoulders. Proper follow-up care is important to avoid muscle spasms and temporary pain increase within the following 3-5 days after your clinic visit. Here are some tips to help decrease side-effects that may occur and maximize the effectiveness of your pain relief -HYDRATION Hydration is important to help nourish your muscles and tissues. Drink 60-80 oz of non caffeinated fluid at least for 3 days after your visit. -REST Rest will help avoid further irritation of muscle and tissues. Remember that you need to give your body time to adjust. NO strenuous activity for at least the first 24 hours after your visit. Gentle stretching, yoga, meditation or even swimming is OK and encouraged. -ICE/HEAT Since these procedures irritate muscles, there can be some swelling. Alternating ice and heat every 3-5 times per day may help decrease this, while also optimizing pain relief Use cool gel packs for ice for 10 min. Use a warm moist towel covered with a dry towel on neck and shoulders. Alternate stretching each side of the neck. -STRETCHING Slow, gentle stretching of the neck and shoulders once every hour is helpful to avoid muscle spasms. -TREAT MUSCLE SPASMS If you are already prescribed a muscle relaxer such as baclofen, tizanidine or flexeril, use as directed. If you do not have one, talk to your provider to find out if this would be safe for you to use. Do not rub or massage the area for 48-72 hours. -OTHER No hair dyes or permanents for 24 hours. If you are paying out of pocket for Botox go online to Botox Savings Program and see if you qualify for reimbursement. Return in 3 months for your next Botox Injection documented in this encounter [facility] 07-14-2022 Note HNO ID: [id number] Author: Carolina Juarez APRN.MARCELLUS Service: ? Author Type: Nurse Practitioner Type: Progress Notes Filed: 07/14/2022 12:38 PM Note Text: Headache Center Follow-up Visit Current Preventive: Botox Current Abortive: Maxalt Miscellaneous Patient Concerns: Losing weight, being more active and sleep has improved. Last week in April she went to the ER for migraine. She had difficulty trying to break the migraine. Maxalt was not working. She did get some relief with IV medications provided by ER. Does not have antiemetic for home. Impression: Chronic migraine without aura, intractable, without status migrainosus (primary encounter diagnosis) Nausea and vomiting, unspecified vomiting type Ms. Saunders is a 41-year-old female with history significant for chronic migraine, depression, anxiety, anemia, obesity, PCOS, HTN and IBS. She continues to respond well to Botox as shown below. She had migraine this past April where she had to present to the ER for treatment. Maxalt was not effective and she was struggling with associated nausea/vomiting. We discussed treatment options and will trial Zofran for associated symptoms and Nurtec for migraine rescue. She has tried and failed several triptans. We will get a precert for an Oral Calcitonin Gene-Related Peptide Receptor Antagonist (GEPANT) Rimegepant for the rescue treatment of migraine. This patient meets AHS criteria for treatment of migraine with an oral small molecule CGRP antagonist GEPANT. The FDA has approved GEPANTS for the treatment of migraine. Specifically, the patient has 10 headaches per month, lasting 4 or more hours/day associated with photophobia, phonophobia, nausea, vomiting for three or more months. Medication overuse headache has been ruled out.Patient will not use with another GEPANT. The patient has tried and failed the following : Anti-Migraine Eletriptan (Relpax) Frovatriptan (Frova) Rizatriptan (Maxalt) Sumatriptan (Imitrex, Sumavel) Zolmitriptan (Zomig) Analgesic Ketorolac (Toradol) Meperidine (Demerol) Plan: Rescue therapy: -Trial Nurtec as needed for migraine. -Zofran for associated N/V. Preventive therapy: -Continue Botox. Follow-Up Onabotulinum Toxin A (BotoxTM) for Migraine Indication: Chronic Intractable Migraine Treatment #: 15 Referral Expiration: 05/14/2023 Prior to the initiation of the FIRST treatment with Onabotulinum Toxin A, the patient reported the following average headache frequency over the past 3 MONTHS: Number of moderate-severe migraine days/month: 20 Number of mild migraine days/month: 0 Number of headache free days/month: 10 (240 headache-free hours) Migraine severity: 1010 After treatment with Onabotulinum Toxin A: Number of moderate-severe migraine days/month: 9 Number of mild migraine days/month: 1 Number of headache free days/month: 20 (480 headache-free hours) Migraine severity: 5/10 Patient reduction in overall migraine days: Yes Patient reduction in moderate-severe migraine days: Yes Patient reduction of headache hours by 100 hours or more: Yes (reduction of 240 hours) Individual has obtained clinical benefit deemed significant by individual or prescriber (Y/N): Yes Patient's quality of life and ability to perform ADLs has improved (Y/N): Yes Side effects: none Wearing off: Yes - 10 weeks after treatment The patient has been assessed for disorders which could contribute to breathing or swallowing difficulty, and there is no contraindication with PREEMPT Botox. There is no documented allergic reaction/hypersensitivity to any botulinum toxin and there is no active infection at proposed injection site. HEADACHE SCORES: Headache Questions 09/21/2020 12/31/2020 01/09/2022 ER visits since last office visit: 0 0 0 Hospital stays since last office visit 0 0 0 Limited ADLs in the last month: 5 4 9 Days missed from work or school in the last month: 0 0 0 Days headache pain free in the last month: 10 20 20 Days per month with ALL of the following symptoms - decreased productivity, light sensitivity and nausea: 6 8 9 Initial improvement of headache after botox injection at last visit: Much improved Much improved No change PRN medication usage in the last month: 12 9 9 Patient impression of improvement since last visit: No change Much improved No change HIT-6 09/21/2020 12/31/2020 01/09/2022 HIT-6 - - - HIT-6 67 (Severe impact) 65 (Severe impact) 61 (Severe impact) JOSSE - 2/7 SCORES 09/21/2020 12/31/2020 01/09/2022 JOSSE-2 Score 0 1 0 Migraine Specific QOL - Higher scores indicate better HRQL 08/23/2019 01/09/2022 Role Function-Restrictive Transformed Score (range: 0-100) 60 60 Role Function-Preventive Transformed Score (range: 0-100) 80 70 Emotional Function Transformed Score (range: 0-100) 46.66 60 PHQ-9 09/21/2020 12/31/2020 01/09/2022 Score 3 4 2 BP 140/82 Pulse 86 Ht 160 cm (5' 3 ) Wt 113.4 kg (2 (more content not included)... [facility] 07-14-2022 History of Presen t illness Narrative Headache Center Follow-up Visit Current Preventive: Botox Current Abortive: Maxalt Miscellaneous Patient Concerns: Losing weight, being more active and sleep has improved. Last week in April she went to the ER for migraine. She had difficulty trying to break the migraine. Maxalt was not working. She did get some relief with IV medications provided by ER. Does not have antiemetic for home. Impression: Chronic migraine without aura, intractable, without status migrainosus (primary encounter diagnosis) Nausea and vomiting, unspecified vomiting type Ms. Saunders is a 41-year-old female with history significant for chronic migraine, depression, anxiety, anemia, obesity, PCOS, HTN and IBS. She continues to respond well to Botox as shown below. She had migraine this past April where she had to present to the ER for treatment. Maxalt was not effective and she was struggling with associated nausea/vomiting. We discussed treatment options and will trial Zofran for associated symptoms and Nurtec for migraine rescue. She has tried and failed several triptans. We will get a precert for an Oral Calcitonin Gene-Related Peptide Receptor Antagonist (GEPANT) Rimegepant for the rescue treatment of migraine. This patient meets AHS criteria for treatment of migraine with an oral small molecule CGRP antagonist GEPANT. The FDA has approved GEPANTS for the treatment of migraine. Specifically, the patient has 10 headaches per month, lasting 4 or more hours/day associated with photophobia, phonophobia, nausea, vomiting for three or more months. Medication overuse headache has been ruled out.Patient will not use with another GEPANT. The patient has tried and failed the following : Anti-Migraine Eletriptan (Relpax) Frovatriptan (Frova) Rizatriptan (Maxalt) Sumatriptan (Imitrex, Sumavel) Zolmitriptan (Zomig) Analgesic Ketorolac (Toradol) Meperidine (Demerol) Plan: Rescue therapy: -Trial Nurtec as needed for migraine. -Zofran for associated N/V. Preventive therapy: -Continue Botox. Follow-Up Onabotulinum Toxin A (BotoxTM) for Migraine Indication: Chronic Intractable Migraine Treatment #: 15 Referral Expiration: 05/14/2023 Prior to the initiation of the FIRST treatment with Onabotulinum Toxin A, the patient reported the following average headache frequency over the past 3 MONTHS: Number of moderate-severe migraine days/month: 20 Number of mild migraine days/month: 0 Number of headache free days/month: 10 (240 headache-free hours) Migraine severity: 02/21 After treatment with Onabotulinum Toxin A: Number of moderate-severe migraine days/month: 9 Number of mild migraine days/month: 1 Number of headache free days/month: 20 (480 headache-free hours) Migraine severity: 09/21 Patient reduction in overall migraine days: Yes Patient reduction in moderate-severe migraine days: Yes Patient reduction of headache hours by 100 hours or more: Yes (reduction of 240 hours) Individual has obtained clinical benefit deemed significant by individual or prescriber (Y/N): Yes Patient's quality of life and ability to perform ADLs has improved (Y/N): Yes Side effects: none Wearing off: Yes - 10 weeks after treatment The patient has been assessed for disorders which could contribute to breathing or swallowing difficulty, and there is no contraindication with PREEMPT Botox. There is no documented allergic reaction/hypersensitivity to any botulinum toxin and there is no active infection at proposed injection site. HEADACHE SCORES: Headache Questions 09/21/2020 12/31/2020 01/09/2022 ER visits since last office visit: 0 0 0 Hospital stays since last office visit 0 0 0 Limited ADLs in the last month: 5 4 9 Days missed from work or school in the last month: 0 0 0 Days headache pain free in the last month: 10 20 20 Days per month with ALL of the following symptoms - decreased productivity, light sensitivity and nausea: 6 8 9 Initial improvement of headache after botox injection at last visit: Much improved Much improved No change PRN medication usage in the last month: 12 9 9 Patient impression of improvement since last visit: No change Much improved No change HIT-6 09/21/2020 12/31/2020 01/09/2022 HIT-6 - - - HIT-6 67 (Severe impact) 65 (Severe impact) 61 (Severe impact) JOSSE - 2/7 SCORES 09/21/2020 12/31/2020 01/09/2022 JOSSE-2 Score 0 1 0 Migraine Specific QOL - Higher scores indicate better HRQL 08/23/2019 01/09/2022 Role Function-Restrictive Transformed Score (range: 0-100) 60 60 Role Function-Preventive Transformed Score (range: 0-100) 80 70 Emotional Function Transformed Score (range: 0-100) 46.66 60 PHQ-9 09/21/2020 12/31/2020 01/09/2022 Score 3 4 2 BP 140/82 Pulse 86 Ht 160 cm (5' 3 ) Wt 113.4 kg (250 lb) LMP 05/19/2012 BMI 44.29 kg/m Patient name: Dona Saunders : 1980 ALLERGIES No Known Allergies UNIVERSAL PROTOCOL / SAFETY CHECKLIST Procedure: Onabotulinum toxin A for migraine Informed Consent Consent Obtained: Written [place] Protocol A moment to CARE was completed SIGN IN Personnel directly involved with the procedure wore the appropriate PPE Special Equipment: N/A Patient/Surrogate Stated/Verified: Patient name, Date of , Relevant allergies and Intended procedure TIME OUT Intended patient and procedure match the source document(s) Consent documented and matches the intended procedure No relevant labs, photos, and/or imaging studies were applicable for review. No correct side/site applicable for marking and visibility. No medications required for procedure. No fire risk assessment and interventions applicable. No implant(s) inserted. SIGN OUT No specimen collected. No instruments, equipment or retained foreign bodies applicable. Post-procedure follow-up management communicated and Plan of Care Visit completed when applicable Written Consent Obtained: Written LOT #: [id number] Expiration Date: Month: Year: 2024 Second vial: LOT #: [id number] Expiration Date: Month: Year: 2024 Injection Sites Left (Units) Left (Sites) Right (Units) Right (Sites) TOTAL (Units) Barrel Assembler 5 1 5 1 10 Procerus Units: 5 Sites: 1 5 Frontalis 10 2 10 2 20 Temporalis optional follow the pain 20 5 4 1 20 5 4 1 50 Occipitalis optional follow the pain 15 5 3 1 15 5 3 1 40 Cervical PSP 10 2 10 2 20 Trapezius optional follow the pain 15 12.5 3 3 15 12.5 3 3 55 Total Units used: 200 Total Units wasted: 0 Patient tolerated procedure well. Prior Therapies Duration of Use Dose Side effect Analgesic Ketorolac (Toradol) Meperidine (Demerol) Anti-Convulsant Topiramate (Topamax, Trokendi XL, Qudexy) Anti-Depressant and Antipsychotic Amitriptyline (Elavil) Escitalopram (Lexapro) Antiemetics Promethazine Anti-Migraine Eletriptan (Relpax) Frovatriptan (Frova) Rizatriptan (Maxalt) Sumatriptan (Imitrex, Sumavel) Zolmitriptan (Zomig) Blood Pressure Lisinopril (Zestril) Propranolol (Inderal) Botulinum Toxin Onabotulinum Toxin A (Botox) Over the Counter Medications Acetaminophen (Tylenol) Acetaminophen/Aspirin/Caffeine (Excedrin, Goody s) Ibuprofen (Advil, Motrin) Carolina Juarez APRN.ELECTRIC SIGN WIRER documented in this encounter [facility] 04-14-2022 Miscellaneous Notes Botox referral sent to pharmacy Joel Doyle RN April 14, 2022 2:50 PM documented in this encounter [facility] 04-14-2022 Note HNO ID: [id number] Author: Carolina Juarez APRN.MARCELLUS Service: ? Author Type: Nurse Practitioner Type: Progress Notes Filed: 04/14/2022 11:24 AM Note Text: Follow-Up Onabotulinum Toxin A (BotoxTM) for Migraine Indication: Chronic Intractable Migraine Treatment #: 14 Referral Expiration: 05/14/2022 Prior to the initiation of the FIRST treatment with Onabotulinum Toxin A, the patient reported the following average headache frequency over the past 3 MONTHS: Number of moderate-severe migraine days/month: 20 Number of mild migraine days/month: 0 Number of headache free days/month: 10 (240 headache-free hours) Migraine severity: 10 After treatment with Onabotulinum Toxin A: Number of moderate-severe migraine days/month: 9 Number of mild migraine days/month: 1 Number of headache free days/month: 20 (480 headache-free hours) Migraine severity: 5/10 Patient reduction in overall migraine days: Yes Patient reduction in moderate-severe migraine days: Yes Patient reduction of headache hours by 100 hours or more: Yes (reduction of 240 hours) Individual has obtained clinical benefit deemed significant by individual or prescriber (Y/N): Yes Patient's quality of life and ability to perform ADLs has improved (Y/N): Yes Side effects: none Wearing off: Yes - 10 weeks after treatment The patient has been assessed for disorders which could contribute to breathing or swallowing difficulty, and there is no contraindication with PREEMPT Botox. There is no documented allergic reaction/hypersensitivity to any botulinum toxin and there is no active infection at proposed injection site. HEADACHE SCORES: Headache Questions 09/21/2020 12/31/2020 01/09/2022 ER visits since last office visit: 0 0 0 Hospital stays since last office visit 0 0 0 Limited ADLs in the last month: 5 4 9 Days missed from work or school in the last month: 0 0 0 Days headache pain free in the last month: 10 20 20 Days per month with ALL of the following symptoms - decreased productivity, light sensitivity and nausea: 6 8 9 Initial improvement of headache after botox injection at last visit: Much improved Much improved No change PRN medication usage in the last month: 12 9 9 Patient impression of improvement since last visit: No change Much improved No change HIT-6 09/21/2020 12/31/2020 01/09/2022 HIT-6 - - - HIT-6 67 (Severe impact) 65 (Severe impact) 61 (Severe impact) JOSSE - 2/7 SCORES 09/21/2020 12/31/2020 01/09/2022 OJSSE-2 Score 0 1 0 Migraine Specific QOL - Higher scores indicate better HRQL 08/23/2019 01/09/2022 Role Function-Restrictive Transformed Score (range: 0-100) 60 60 Role Function-Preventive Transformed Score (range: 0-100) 80 70 Emotional Function Transformed Score (range: 0-100) 46.66 60 PHQ-9 09/21/2020 12/31/2020 01/09/2022 Score 3 4 2 BP 128/76 Pulse 83 Ht 160 cm (5' 3 ) Wt 111.6 kg (246 lb) LMP 05/19/2012 BMI 43.58 kg/m? Patient name: Dona Saunders : 1980 ALLERGIES No Known Allergies UNIVERSAL PROTOCOL / SAFETY CHECKLIST Procedure: Onabotulinum toxin A for migraine Informed Consent Consent Obtained: Written [place] Protocol A moment to CARE was completed SIGN IN Personnel directly involved with the procedure wore the appropriate PPE Special Equipment: N/A Patient/Surrogate Stated/Verified: Patient name, Date of , Relevant allergies and Intended procedure TIME OUT Intended patient and procedure match the source document(s) Consent documented and matches the intended procedure No relevant labs, photos, and/or imaging studies were applicable for review. No correct side/site applicable for marking and visibility. No medications required for procedure. No fire risk assessment and interventions applicable. No implant(s) inserted. SIGN OUT No specimen collected. No instruments, equipment or retained foreign bodies applicable. Post-procedure follow-up management communicated and Plan of Care Visit completed when applicable Written Consent Obtained: Written LOT #: [id number] Expiration Date: Month: Year: 2023 Second vial: LOT #: [id number] Expiration Date: Month: 4 Year: 2023 Injection Sites Left (Units) Left (Sites) Right (Units) Right (Sites) TOTAL (Units) Barrel Assembler 5 1 5 1 10 Procerus Units: 5 Sites: 1 5 Frontalis 10 2 10 2 20 Temporalis optional follow the pain 20 5 4 1 20 5 4 1 50 Occipitalis optional follow the pain 15 5 3 1 15 5 3 1 40 Cervical PSP 10 2 10 2 20 Trapezius optional follow the pain 15 12.5 3 3 15 12.5 3 3 55 Total Units used: 200 Total Units wasted: 0 Patient tolerated procedure well. Prior Therapies Duration of Use Dose Side effect Analgesic Ketorolac (Toradol) Meperidine (Demerol) Anti-Convulsant Topiramate (Topamax, Trokendi XL, Qudexy) Anti-Depressant and Antipsychotic Amitriptyline (Elavil) Escitalopram (Lexapro) Antiemetics Promethazine (more content not included)... [facility] 04-14-2022 History of Presen t illness Narrative Follow-Up Onabotulinum Toxin A (BotoxTM) for Migraine Indication: Chronic Intractable Migraine Treatment #: 14 Referral Expiration: 05/14/2022 Prior to the initiation of the FIRST treatment with Onabotulinum Toxin A, the patient reported the following average headache frequency over the past 3 MONTHS: Number of moderate-severe migraine days/month: 20 Number of mild migraine days/month: 0 Number of headache free days/month: 10 (240 headache-free hours) Migraine severity: 02/21 After treatment with Onabotulinum Toxin A: Number of moderate-severe migraine days/month: 9 Number of mild migraine days/month: 1 Number of headache free days/month: 20 (480 headache-free hours) Migraine severity: 09/21 Patient reduction in overall migraine days: Yes Patient reduction in moderate-severe migraine days: Yes Patient reduction of headache hours by 100 hours or more: Yes (reduction of 240 hours) Individual has obtained clinical benefit deemed significant by individual or prescriber (Y/N): Yes Patient's quality of life and ability to perform ADLs has improved (Y/N): Yes Side effects: none Wearing off: Yes - 10 weeks after treatment The patient has been assessed for disorders which could contribute to breathing or swallowing difficulty, and there is no contraindication with PREEMPT Botox. There is no documented allergic reaction/hypersensitivity to any botulinum toxin and there is no active infection at proposed injection site. HEADACHE SCORES: Headache Questions 09/21/2020 12/31/2020 01/09/2022 ER visits since last office visit: 0 0 0 Hospital stays since last office visit 0 0 0 Limited ADLs in the last month: 5 4 9 Days missed from work or school in the last month: 0 0 0 Days headache pain free in the last month: 10 20 20 Days per month with ALL of the following symptoms - decreased productivity, light sensitivity and nausea: 6 8 9 Initial improvement of headache after botox injection at last visit: Much improved Much improved No change PRN medication usage in the last month: 12 9 9 Patient impression of improvement since last visit: No change Much improved No change HIT-6 09/21/2020 12/31/2020 01/09/2022 HIT-6 - - - HIT-6 67 (Severe impact) 65 (Severe impact) 61 (Severe impact) JOSSE - 2/7 SCORES 09/21/2020 12/31/2020 01/09/2022 JOSSE-2 Score 0 1 0 Migraine Specific QOL - Higher scores indicate better HRQL 08/23/2019 01/09/2022 Role Function-Restrictive Transformed Score (range: 0-100) 60 60 Role Function-Preventive Transformed Score (range: 0-100) 80 70 Emotional Function Transformed Score (range: 0-100) 46.66 60 PHQ-9 09/21/2020 12/31/2020 01/09/2022 Score 3 4 2 BP 128/76 Pulse 83 Ht 160 cm (5' 3 ) Wt 111.6 kg (246 lb) LMP 05/19/2012 BMI 43.58 kg/m Patient name: Dona Saunders : 1980 ALLERGIES No Known Allergies UNIVERSAL PROTOCOL / SAFETY CHECKLIST Procedure: Onabotulinum toxin A for migraine Informed Consent Consent Obtained: Written [place] Protocol A moment to CARE was completed SIGN IN Personnel directly involved with the procedure wore the appropriate PPE Special Equipment: N/A Patient/Surrogate Stated/Verified: Patient name, Date of , Relevant allergies and Intended procedure TIME OUT Intended patient and procedure match the source document(s) Consent documented and matches the intended procedure No relevant labs, photos, and/or imaging studies were applicable for review. No correct side/site applicable for marking and visibility. No medications required for procedure. No fire risk assessment and interventions applicable. No implant(s) inserted. SIGN OUT No specimen collected. No instruments, equipment or retained foreign bodies applicable. Post-procedure follow-up management communicated and Plan of Care Visit completed when applicable Written Consent Obtained: Written LOT #: [id number] Expiration Date: Month: Year: 2023 Second vial: LOT #: [id number] Expiration Date: Month: Year: 2023 Injection Sites Left (Units) Left (Sites) Right (Units) Right (Sites) TOTAL (Units) Barrel Assembler 5 1 5 1 10 Procerus Units: 5 Sites: 1 5 Frontalis 10 2 10 2 20 Temporalis optional follow the pain 20 5 4 1 20 5 4 1 50 Occipitalis optional follow the pain 15 5 3 1 15 5 3 1 40 Cervical PSP 10 2 10 2 20 Trapezius optional follow the pain 15 12.5 3 3 15 12.5 3 3 55 Total Units used: 200 Total Units wasted: 0 Patient tolerated procedure well. Prior Therapies Duration of Use Dose Side effect Analgesic Ketorolac (Toradol) Meperidine (Demerol) Anti-Convulsant Topiramate (Topamax, Trokendi XL, Qudexy) Anti-Depressant and Antipsychotic Amitriptyline (Elavil) Escitalopram (Lexapro) Antiemetics Promethazine Anti-Migraine Eletriptan (Relpax) Frovatriptan (Frova) Rizatriptan (Maxalt) Sumatriptan (Imitrex, Sumavel) Zolmitriptan (Zomig) Blood Pressure Lisinopril (Zestril) Propranolol (Inderal) Botulinum Toxin Onabotulinum Toxin A (Botox) Over the Counter Medications Acetaminophen (Tylenol) Acetaminophen/Aspirin/Caffeine (Excedrin, Goody s) Ibuprofen (Advil, Motrin) Carolina Juarez APRN.ELECTRIC SIGN WIRER documented in this encounter [facility] 04-14-2022 Instructions Carolina Juarez APRN.ELECTRIC SIGN WIRER - 04/14/2022 10:55 AM EST AFTER VISIT CARE BOTOX INJECTION While these procedures can be extremely helpful as part of your headache treatment plan, they can irritate the muscles and tissues in your head, neck and shoulders. Proper follow-up care is important to avoid muscle spasms and temporary pain increase within the following 3-5 days after your clinic visit. Here are some tips to help decrease side-effects that may occur and maximize the effectiveness of your pain relief -HYDRATION Hydration is important to help nourish your muscles and tissues. Drink 60-80 oz of non caffeinated fluid at least for 3 days after your visit. -REST Rest will help avoid further irritation of muscle and tissues. Remember that you need to give your body time to adjust. NO strenuous activity for at least the first 24 hours after your visit. Gentle stretching, yoga, meditation or even swimming is OK and encouraged. -ICE/HEAT Since these procedures irritate muscles, there can be some swelling. Alternating ice and heat every 3-5 times per day may help decrease this, while also optimizing pain relief Use cool gel packs for ice for 10 min. Use a warm moist towel covered with a dry towel on neck and shoulders. Alternate stretching each side of the neck. -STRETCHING Slow, gentle stretching of the neck and shoulders once every hour is helpful to avoid muscle spasms. -TREAT MUSCLE SPASMS If you are already prescribed a muscle relaxer such as baclofen, tizanidine or flexeril, use as directed. If you do not have one, talk to your provider to find out if this would be safe for you to use. Do not rub or massage the area for 48-72 hours. -OTHER No hair dyes or permanents for 24 hours. If you are paying out of pocket for Botox go online to Botox Savings Program and see if you qualify for reimbursement. Return in 3 months for your next Botox Injection documented in this encounter [facility] 04-11-2022 Miscellaneous Notes Physician: Ann Call from patient requesting refill. Please E-Scribe Last office visit 02/17/22 with Ann PACHECO Next office visit 04/14/22 with Ann PACHECO Requested Prescriptions Pending Prescriptions Disp Refills rizatriptan (MAXALT) 10 mg tablet [Pharmacy Med Name: RIZATRIPTAN 10 MG TABLET] 12 tablet 11 Sig: TAKE 1 TABLET BY MOUTH AT ONSET OF MIGRAINE. MAY REPEAT ONCE IN 2 HOURS IF NEEDED. MAX 2 DOSES IN 24 HOURS AND 9 DAYS A MONTH Pharmacy Name: [facility] documented in this encounter [facility] 10-07-2021 Instructions Carolina Juarez APRN.ELECTRIC SIGN WIRER - 10/07/2021 1:04 PM EDT AFTER VISIT CARE BOTOX INJECTION While these procedures can be extremely helpful as part of your headache treatment plan, they can irritate the muscles and tissues in your head, neck and shoulders. Proper follow-up care is important to avoid muscle spasms and temporary pain increase within the following 3-5 days after your clinic visit. Here are some tips to help decrease side-effects that may occur and maximize the effectiveness of your pain relief -HYDRATION Hydration is important to help nourish your muscles and tissues. Drink 60-80 oz of non caffeinated fluid at least for 3 days after your visit. -REST Rest will help avoid further irritation of muscle and tissues. Remember that you need to give your body time to adjust. NO strenuous activity for at least the first 24 hours after your visit. Gentle stretching, yoga, meditation or even swimming is OK and encouraged. -ICE/HEAT Since these procedures irritate muscles, there can be some swelling. Alternating ice and heat every 3-5 times per day may help decrease this, while also optimizing pain relief 1. Use cool gel packs for ice for 10 min. 2. Use a warm moist towel covered with a dry towel on neck and shoulders. 3. Alternate stretching each side of the neck. -STRETCHING Slow, gentle stretching of the neck and shoulders once every hour is helpful to avoid muscle spasms. -TREAT MUSCLE SPASMS If you are already prescribed a muscle relaxer such as baclofen, tizanidine or flexeril, use as directed. If you do not have one, talk to your provider to find out if this would be safe for you to use. Do not rub or massage the area for 48-72 hours. -OTHER No hair dyes or permanents for 24 hours. If you are paying out of pocket for Botox go online to Botox Savings Program and see if you qualify for reimbursement. Return in 3 months for your next Botox Injection documented in this encounter [facility] 10-07-2021 History of Presen t illness Narrative Follow-Up Onabotulinum Toxin A (BotoxTM) for Migraine Indication: Chronic Intractable Migraine Treatment #: 12 Referral Expiration: 05/14/2022 Prior to the initiation of the FIRST treatment with Onabotulinum Toxin A, the patient reported the following average headache frequency over the past 3 MONTHS: Number of moderate-severe migraine days/month: 20 Number of mild migraine days/month: 0 Number of headache free days/month: 10 (240 headache-free hours) Migraine severity: 10/10 After treatment with Onabotulinum Toxin A: Number of moderate-severe migraine days/month: 8 Number of mild migraine days/month: 2 Number of headache free days/month: 20 (480 headache-free hours) Migraine severity: 5/10 Patient reduction in overall migraine days: Yes Patient reduction in moderate-severe migraine days: Yes Patient reduction of headache hours by 100 hours or more: Yes (reduction of 240 hours) Individual has obtained clinical benefit deemed significant by individual or prescriber (Y/N): Yes Patient's quality of life and ability to perform ADLs has improved (Y/N): Yes Side effects: none Wearing off: Yes - 11 weeks after treatment She is having most headaches/migraines upon awakening. They are responsive to her Maxalt. She does endorse snoring and daytime sleepiness some days. Advised referral to Sleep Medicine to rule out underlying sleep apnea - she declined and plans to discuss with her PCP. HEADACHE SCORES: Headache Questions 08/23/2019 09/21/2020 12/31/2020 ER visits since last office visit: 0 0 0 Hospital stays since last office visit 0 0 0 Limited ADLs in the last month: 4 5 4 Days missed from work or school in the last month: - 0 0 Days headache pain free in the last month: 18 10 20 Days per month with ALL of the following symptoms - decreased productivity, light sensitivity and nausea: 10 6 8 Initial improvement of headache after botox injection at last visit: Very much improved Much improved Much improved PRN medication usage in the last month: 12 12 9 Patient impression of improvement since last visit: Minimally worse No change Much improved HIT-6 08/23/2019 09/21/2020 12/31/2020 HIT-6 - - - HIT-6 65 (Severe impact) 67 (Severe impact) 65 (Severe impact) JOSSE - 2/7 SCORES 09/21/2020 09/21/2020 12/31/2020 JOSSE-2 Score 0 0 1 Migraine Specific QOL - Higher scores indicate better HRQL 08/23/2019 Role Function-Restrictive Transformed Score (range: 0-100) 60 Role Function-Preventive Transformed Score (range: 0-100) 80 Emotional Function Transformed Score (range: 0-100) 46.66 PHQ-9 09/21/2020 09/21/2020 12/31/2020 Score 3 3 4 BP 121/82 Pulse 100 Wt 120.2 kg (265 lb) LMP 05/19/2012 BMI 46.94 kg/m Patient name: Dona Saunders : 1980 ALLERGIES No Known Allergies UNIVERSAL PROTOCOL / SAFETY CHECKLIST Procedure: Onabotulinum toxin A for migraine Informed Consent Consent Obtained: Written [place] Protocol A moment to CARE was completed SIGN IN Personnel directly involved with the procedure wore the appropriate PPE Special Equipment: N/A Patient/Surrogate Stated/Verified: Patient name, Date of , Relevant allergies and Intended procedure TIME OUT Intended patient and procedure match the source document(s) Consent documented and matches the intended procedure No relevant labs, photos, and/or imaging studies were applicable for review. No correct side/site applicable for marking and visibility. No medications required for procedure. No fire risk assessment and interventions applicable. No implant(s) inserted. SIGN OUT No specimen collected. No instruments, equipment or retained foreign bodies applicable. Post-procedure follow-up management communicated and Plan of Care Visit completed when applicable Written Consent Obtained: Written LOT #: [id number] Expiration Date: Month: Year: 2023 Second vial: LOT #: [id number] Expiration Date: Month: Year: 2023 Injection Sites Left (Units) Left (Sites) Right (Units) Right (Sites) TOTAL (Units) Barrel Assembler 5 1 5 1 10 Procerus Units: 5 Sites: 1 5 Frontalis 10 2 10 2 20 Temporalis optional follow the pain 20 5 4 1 20 5 4 1 50 Occipitalis optional follow the pain 15 5 3 1 15 5 3 1 40 Cervical PSP 10 2 10 2 20 Trapezius optional follow the pain 15 12.5 3 3 15 12.5 3 3 55 Total Units used: 200 Total Units wasted: 0 Patient tolerated procedure well. Prior Therapies Duration of Use Dose Side effect Analgesic Ketorolac (Toradol) Meperidine (Demerol) Anti-Convulsant Topiramate (Topamax, Trokendi XL, Qudexy) Antiemetics Promethazine Anti-Migraine Eletriptan (Relpax) Frovatriptan (Frova) Rizatriptan (Maxalt) Sumatriptan (Imitrex, Sumavel) Zolmitriptan (Zomig) Blood Pressure Propranolol (Inderal) Over the Counter Medications Acetaminophen (Tylenol) Acetaminophen/Aspirin/Caffeine (Excedrin, Goody s) Ibuprofen (Advil, Motrin) Carolina Juarez APRN.ELECTRIC SIGN WIRER documented [facility] encounter [facility] Chronic migraine without aura, intractable, without status migrainosus- Primary documented in this encounter [facility] note* Diagnosis Chronic migraine without aura, intractable, without status migrainosus- Primary Nausea and vomiting, unspecified vomiting type documented in this encounter [facility] note* Diagnosis Rhinosinusitis- Primary Unspecified sinusitis (chronic) documented in this encounter [facility] note* Diagnosis Urinary frequency- Primary documented in this encounter [facility] note* Diagnosis Chronic migraine without aura, intractable, without status migrainosus- Primary documented in this encounter [facility] note* Diagnosis Chronic migraine without aura, intractable, without status migrainosus- Primary documented in this encounter [facility] Medications Administered Section Inactive Administered Medications - up to 3 most recent administrations Medication Order MAR Action Action Date Dose Rate Site onabotulinum toxin type A 200 Units injection (BOTOX) 200 Units, OTHER, ONCE, 1 dose, On [place] 10/07/21 at 1130, This record documents the total dose provided to patient. See progress note for specific locations and amounts administered. REFRIGERATE - Pharmaceutical Waste: Lab Pack - Given 10/07/2021 1:29 PM EDT 200 Units Inactive Administered Medications - up to 3 most recent administrations Medication Order MAR Action Action Date Dose Rate Site onabotulinum toxin type A 200 Units injection (BOTOX) 200 Units, OTHER, ONCE, 1 dose, On [place] 04/14/22 at 1100, This record documents the total dose provided to patient. See progress note for specific locations and amounts administered. REFRIGERATE - Pharmaceutical Waste: Lab Pack - Given 04/14/2022 11:19 AM EST 200 Units Inactive Administered Medications - up to 3 most recent administrations Medication Order MAR Action Action Date Dose Rate Site onabotulinum toxin type A 200 Units injection (BOTOX) 200 Units, OTHER, ONCE, 1 dose, On [place] 07/14/22 at 0930, This record documents the total dose provided to patient. See progress note for specific locations and amounts administered. REFRIGERATE - Pharmaceutical Waste: Lab Pack - Given 07/14/2022 12:38 PM EST 200 Units Inactive Administered Medications - up to 3 most recent administrations Medication Order MAR Action Action Date Dose Rate Site onabotulinum toxin type A 200 Units injection (BOTOX) 200 Units, INTRAMUSCULAR, ONCE, 1 dose, On 12/20/22 at 1530, This record documents the total dose provided to patient. See progress note for specific locations and amounts administered. Given 12/20/2022 3:50 PM EDT 200 Units Othe r Inactive Administered Medications - up to 3 most recent administrations Medication Order MAR Action Action Date Dose Rate Site onabotulinum toxin type A 200 Units injection (BOTOX) 200 Units, INTRAMUSCULAR, ONCE, 1 dose, On [place] 03/23/23 at 0930, This record documents the total dose provided to patient. See progress note for specific locations and amounts administered. Given 03/23/2023 9:55 AM EST 200 Units Othe r Summary Purpose Family History No Family History Records Found Advance Directives No Advanced Directives Records Found Additional Source Comments Source Comments (unrecognize d section and content) In the event this informatio n is protected by the Federal Confidentiality of Alcohol and Drug Abuse Patient Records regulations: The Federal rules restrict any use of the information to criminally investigate or prosecute any alcohol or drug abuse patient.[facility] the event this information is protected by the Federal Confidentiality of Alcohol and Drug Abuse Patient Records regulations: The Federal rules restrict any use of the information to criminally investigate or prosecute any alcohol or drug abuse patient.[facility] the event this information is protected by the Federal Confidentiality of Alcohol and Drug Abuse Patient Records regulations: The Federal rules restrict any use of the information to criminally investigate or prosecute any alcohol or drug abuse patient.[facility] the event this information is protected by the Federal Confidentiality of Alcohol and Drug Abuse Patient Records regulations: The Federal rules restrict any use of the information to criminally investigate or prosecute any alcohol or drug abuse patient.[facility] Hospital[facility] the event this information is protected by the Federal Confidentiality of Alcohol and Drug Abuse Patient Records regulations: The Federal rules restrict any use of the information to criminally investigate or prosecute any alcohol or drug abuse patient.[facility] Hospital[facility] the event this information is protected by the Federal Confidentiality of Alcohol and Drug Abuse Patient Records regulations: The Federal rules restrict any use of the information to criminally investigate or prosecute any alcohol or drug abuse patient.[facility] HospitalIn the event this information is protected by the Federal Confidentiality of Alcohol and Drug Abuse Patient Records regulations: The Federal rules restrict any use of the information to criminally investigate or prosecute any alcohol or drug abuse patient.[facility] Hospital[facility] the event this information is protected by the Federal Confidentiality of Alcohol and Drug Abuse Patient Records regulations: The Federal rules restrict any use of the information to criminally investigate or prosecute any alcohol or drug abuse patient.[facility] HospitalIn the event this information is protected by the Federal Confidentiality of Alcohol and Drug Abuse Patient Records regulations: The Federal rules restrict any use of the information to criminally investigate or prosecute any alcohol or drug abuse patient.[facility] HospitalIn the event this information is protected by the Federal Confidentiality of Alcohol and Drug Abuse Patient Records regulations: The Federal rules restrict any use of the information to criminally investigate or prosecute any alcohol or drug abuse patient.[facility] the event this information is protected by the Federal Confidentiality of Alcohol and Drug Abuse Patient Records regulations: The Federal rules restrict any use of the information to criminally investigate or prosecute any alcohol or drug abuse patient.[facility] HospitalIn the event this information is protected by the Federal Confidentiality of Alcohol and Drug Abuse Patient Records regulations: The Federal rules restrict any use of the information to criminally investigate or prosecute any alcohol or drug abuse patient.[facility] Reason for Visit (unrecogniz ed section and content) Specialty Diagnoses / Procedures Referred By Contac t Referred To Contact HEADACHE Diagnoses Chronic migraine without aura, intractable, without status migrainosus Procedures BOTULINUM TOXIN A PER 1 UNIT CHEMODERVATE FACIAL/TRIGEM/CERV MUSC MIGRAINE Renewal due 06/15/2022 Botox 200 units every 12 weeks for 1 year through [facility] buy and bill. Preempt protocol [id number] Procedure -[id number] chemodervate facial/trigem/cerv musc migraine Carolina Juarez, MEDICAL STAFF DIRECTOR.ELECTRIC SIGN WIRER [address] [place] [address] Neur Headache [address] [place] [address] Referral ID Status Reason Start Date Expiration Date V isits Requested Visits Authorized [id number] Authorized 07/14/2022 05/14/2023 99 99 Reason Comments Neurotoxin Injection Specialty Diagnoses / Procedures Referred By Contac t Referred To Contact Neurology / HEADACHE Diagnoses Chronic migraine without aura, intractable, without status migrainosus G43.719 Procedures CHEMODERVATE FACIAL/TRIGEM/CERV MUSC MIGRAINE BOTULINUM TOXIN A PER 1 UNIT Botox 200 units every 90 days for 1 year through [facility] buy and bill Preempt protocol [id number] Procedure -[id number] chemodervate facial/trigem/cerv musc migraine Carolina Juarez, MEDICAL STAFF DIRECTOR.ELECTRIC SIGN WIRER [address] [place] [address] Carolina Juarez, MEDICAL STAFF DIRECTOR.ELECTRIC SIGN WIRER [address] [place] [address] Referral ID Status Reason Start Date Expiration Date V isits Requested Visits Authorized [id number] Authorized 06/17/2021 05/14/2022 4 4 Reason Onset Date Comments Refill Request 04/09/2022 Reason Comments Refill Request Referral ID Status Reason Start Date Expiration Date Visits Re quested Visits Authorized [id number] Closed 06/17/2021 05/14/2022 4 4 Reason Comments Referral Request Reason Comments Insurance Authorization [facility] Reason Comments Cough ST, chest congestion , fever, REHMAN x3 weeks Reason Comments Urinary Frequency Frequency and burnin g x 5 days Reason Comments Results Care Teams (unrecognized sec tion and content) Senior Construction Project Manager Relationship Specialty Start Date End Date Ashley Mari MD [address] [place] [address] PCP - General Internal Medicine 03/14/17 Senior Construction Project Manager Relationship Specialty Start Date End Date Ashley Mari MD [address], [place] [id number] PCP - General Internal Medicine 03/14/17 Senior Construction Project Manager Relationship Specialty Start Date End Date Ashley Mari MD [address] [place], [place] [id number] PCP - General Internal Medicine 03/14/17 Senior Construction Project Manager Relationship Specialty Start Date End Date Ashley Mari MD [address] [place], [place] [id number] PCP - General Internal Medicine 03/14/17 Senior Construction Project Manager Relationship Specialty Start Date End Date Harsha Hernández MD [address] [place] [address] PCP - General Family Medicine 08/26/22 Senior Construction Project Manager Relationship Specialty Start Date End Date Harsha Hernández MD [address] [place] [address] PCP - General Family Medicine 08/26/22 Senior Construction Project Manager Relationship Specialty Start Date End Date Harsha Hernández MD [address] [place] [address] PCP - General Family Medicine 08/26/22 Senior Construction Project Manager Relationship Specialty Start Date End Date Harsha Hernández MD [address] [place] [address] PCP - General Family Medicine 08/26/22 Senior Construction Project Manager Relationship Specialty Start Date End Date Harsha Hernández MD [address] [place] [address] PCP - General Family Medicine 08/26/22 INFORMATION SOURCE (unrecogn ized section and content) FOR RECORDS PERTAINING TO PATIENTS WHO ARE OR HAVE BEEN ENROLLED IN A CHEMICAL DEPENDENCY/SUBSTANCEABUSE PROGRAM, SOME INFORMATION MAY BE OMITTED. This clinical summary was aggregated from multiple sources. Caution should be exercised in using it in the provision of clinical care. This summary normalizes information from multiple sources, and as a consequence, information in this document may materially change the coding, format and clinical context of patient data. In addition, data may be omitted in some cases. CLINICAL DECISIONS SHOULD BE BASED ON THE PRIMARY CLINICAL RECORDS. [facility] [employer] [facility] provides no warranty or guarantee of the accuracy or completeness of information in this document.
== END | disposition home or self-care (01) ==
LOC: LABSPEC 13:13
PROVIDERS: PCP Family Medicine; Referring Provider Surgery; Visit Provider Surgery
DX: R59.0 Localized enlarged lymph nodes (principal)
CPT/HCPCS: 88305; 88313

== ENCOUNTER → 2023-07-13 | Outpatient (CLI) | payer BC, SELFPAY ==
--- OUTSIDE RECORDS SUMMARY | 2023-07-13 08:00 | XMS RPT_ITS | CCD ---
Author Name Unknown Address [address] [place] [address] Organization [facility] Care Team Providers Care Body Presser Name Role Phone Ashley Mari MD Primary [...] 160 cm Carolina Juarez APRN.CNP Work Phone: [facility] 03-23-2023 09:33-0500 Body weight 97.52 kg Carolina Juarez APRN.CNP Work Phone: [facility] 03-23-2023 09:33-0500 Diastolic blood pressure 84 mm[Hg] Carolina Juarez APRN.CNP Work Phone: [facility] 03-23-2023 09:33-0500 Heart rate 75 /min Carolina Juarez BENCH ASSEMBLER OPERATOR.HEAD WORKER Work Phone: [facility] 03-23-2023 09:33-0500 Systolic blood pressure 122 mm[Hg] Carolina Juarez BENCH ASSEMBLER OPERATOR.HEAD WORKER Work Phone: [facility] 12-20-2022 15:01-0400 Body height 160 cm Carolina Juarez BENCH ASSEMBLER OPERATOR.HEAD WORKER Work Phone: [facility] 12-20-2022 15:01-0400 Body weight 105.69 kg Carolina Juarez BENCH ASSEMBLER OPERATOR.HEAD WORKER Work Phone: [facility] 12-20-2022 15:01-0400 Diastolic blood pressure 86 mm[Hg] Carolina Juarez BENCH ASSEMBLER OPERATOR.HEAD WORKER Work Phone: [facility] 12-20-2022 15:01-0400 Heart rate 73 /min Carolina Juarez BENCH ASSEMBLER OPERATOR.HEAD WORKER Work Phone: [facility] 12-20-2022 15:01-0400 SaO2% (BldA) [Mass fraction] 97 % Carolina Juarez BENCH ASSEMBLER OPERATOR.HEAD WORKER Work Phone: [facility] 12-20-2022 15:01-0400 Systolic blood pressure 133 mm[Hg] Carolina Juarez BENCH ASSEMBLER OPERATOR.HEAD WORKER Work Phone: [facility] 12-10-2022 14:42-0400 Body temperature 99.39 [degF] Alejandro Palma MD Work Phone: [facility] 12-10-2022 14:42-0400 Body weight 107.68 kg Alejandro Palma MD Work Phone: [facility] 12-10-2022 14:42-0400 Diastolic blood pressure 84 mm[Hg] Alejandro Palma MD Work Phone: [facility] 12-10-2022 14:42-0400 Heart rate 70 /min Alejandro Palma MD Work Phone: [facility] 12-10-2022 14:42-0400 Respiratory rate 16 /min Alejandro Palma MD Work Phone: [facility] 12-10-2022 14:42-0400 SaO2% (BldA) [Mass fraction] 100 % Alejandro Palma MD Work Phone: [facility] 12-10-2022 14:42-0400 Systolic blood pressure 128 mm[Hg] Alejandro Palma MD Work Phone: [facility] 08-26-2022 07:30-0400 Body temperature 98.8 [degF] Brianda Lehman BENCH ASSEMBLER OPERATOR.HEAD WORKER Work Phone: [facility] 08-26-2022 07:30-0400 Body weight 114.85 kg Brianda Lehman BENCH ASSEMBLER OPERATOR.HEAD WORKER Work Phone: [facility] 08-26-2022 07:30-0400 Diastolic blood pressure 88 mm[Hg] Brianda Lehman BENCH ASSEMBLER OPERATOR.HEAD WORKER Work Phone: [facility] 08-26-2022 07:30-0400 Heart rate 96 /min Brianda Lehman BENCH ASSEMBLER OPERATOR.HEAD WORKER Work Phone: [facility] 08-26-2022 07:30-0400 Respiratory rate 20 /min Brianda Lehman BENCH ASSEMBLER OPERATOR.HEAD WORKER Work Phone: [facility] 08-26-2022 07:30-0400 SaO2% (BldA) [Mass fraction] 97 % Brianda Lehman BENCH ASSEMBLER OPERATOR.HEAD WORKER Work Phone: [facility] 08-26-2022 07:30-0400 Systolic blood pressure 126 mm[Hg] Brianda Lehman BENCH ASSEMBLER OPERATOR.HEAD WORKER Work Phone: [facility] 07-14-2022 11:45-0500 Body height 160 cm Carolina Juarez BENCH ASSEMBLER OPERATOR.HEAD WORKER Work Phone: [facility] 07-14-2022 11:45-0500 Body weight 113.4 kg Carolina Najdovski BENCH ASSEMBLER OPERATOR.HEAD WORKER Work Phone: [facility] 07-14-2022 11:45-0500 Diastolic blood pressure 82 mm[Hg] Carolina Najdovski BENCH ASSEMBLER OPERATOR.HEAD WORKER Work Phone: [facility] 07-14-2022 11:45-0500 Heart rate 86 /min Carolina Najdovski BENCH ASSEMBLER OPERATOR.HEAD WORKER Work Phone: [facility] 07-14-2022 11:45-0500 Systolic blood pressure 140 mm[Hg] Carolina Najdovski BENCH ASSEMBLER OPERATOR.HEAD WORKER Work Phone: [facility] 04-14-2022 10:52-0500 Body height 160 cm Carolina Najdovski BENCH ASSEMBLER OPERATOR.HEAD WORKER Work Phone: [facility] 04-14-2022 10:52-0500 Body weight 111.58 kg Carolina Najdovski BENCH ASSEMBLER OPERATOR.HEAD WORKER Work Phone: [facility] 04-14-2022 10:52-0500 Diastolic blood pressure 76 mm[Hg] Carolina Najdovski BENCH ASSEMBLER OPERATOR.HEAD WORKER Work Phone: [facility] 04-14-2022 10:52-0500 Heart rate 83 /min Carolina Najdovski BENCH ASSEMBLER OPERATOR.HEAD WORKER Work Phone: [facility] 04-14-2022 10:52-0500 Systolic blood pressure 128 mm[Hg] Carolina Najdovski BENCH ASSEMBLER OPERATOR.HEAD WORKER Work Phone: [facility] 10-07-2021 13:00-0400 Body weight 120.2 kg Carolina Najdovski BENCH ASSEMBLER OPERATOR.HEAD WORKER Work Phone: [facility] 10-07-2021 13:00-0400 Diastolic blood pressure 82 mm[Hg] Carolina Najdovski BENCH ASSEMBLER OPERATOR.HEAD WORKER Work Phone: [facility] 10-07-2021 13:00-0400 Heart rate 100 /min Carolina Najdovski BENCH ASSEMBLER OPERATOR.HEAD WORKER Work Phone: [facility] 10-07-2021 13:00-0400 Systolic blood pressure 121 mm[Hg] Carolina Juarez APRN.CNP Work Phone: [facility] Encounters Encounter Date Encounter Type Care Provider Facility Start: 03-23-2023 End: 03-23-2023 ambulatory HARSHA HERNÁNDEZ Facility:[facility] Start: 03-23-2023 End: 03-23-2023 Patient encounter procedure Carolina Juarez APRN.CNP Work Phone: Neurology Procedures Date Procedure Procedure Detail Performing Clinician Start: 12-10-2022 Urnls dip stick/tabl et rgnt auto w/o microscopy Sarahi Dennison PA-C Work Phone: Start: 12-31-2020 Adult depression screening assessment Carolina Juarez APRN.CNP Work Phone: Plan of Treatment Date Care Activity Detail Author Start: 01-13-2023 Influenza vaccination [facility] Start: 05-15-2022 DEPRESSION ASSESSMENT DEPRESSION ASSESSMENT [facility] Start: 05-15-2022 Urine microalbumin profile DTaP,Tdap,Td Vaccine (7 - Td or Tdap) [facility] Start: 01-13-2022 Influenza vaccination [facility] Start: 12-31-2021 Adult depression screening assessment DEPRESSION SCREENING [facility] Start: 05-15-2021 DEPRESSION ASSESSMENT DEPRESSION ASSESSMENT [facility] Start: 2020 Mammography [facility] Start: 2010 HPV TESTING HPV TESTING [facility] Start: 2001 PAP TESTING PAP TESTING [facility] Start: 1998 HEPATITIS C SCREENING HEPATITIS C SCREENING [facility] Start: 1998 HIV SCREENING HIV SCREENING [facility] Start: 08-18-1991 Urine microalbumin profile DTAP,TDAP,TD (6 - Tdap) [facility] Start: 1985 COVID-19 VACCINE (#1) COVID-19 VACCINE (#1) [facility] Start: 02-16-1981 COVID-19 VACCINE (#1) COVID-19 VACCINE (#1) [facility] Start: 1980 HEPATITIS B (1 of 3 - 3-dose series) HEPATITIS B (1 of 3 - 3-dose series) [facility] Start: 1980 Hepatitis B Vaccine (1 of 3 - 3-dose series) Hepatitis B Vaccine (1 of 3 - 3-dose series) [facility] Bacteria identified in Urine by Culture URINE CULTURE Microbiology Routine Urinary frequency Ordered: 12/10/2022 [facility] Work Phone: Immunizations Immunization Date Immunization Notes Care Provider Fa cili 02-15-2016 influenza, seasonal, injectable Carolina Nademetrisovski BENCH ASSEMBLER OPERATOR.HEAD WORKER Work Phone: [facility] 02-15-2016 influenza virus vacc ine, unspecified formulation Carolina Najdovski BENCH ASSEMBLER OPERATOR.HEAD WORKER Work Phone: [facility] 06-18-1992 measles, mumps and rubella virus vaccine Carolina Najdovski BENCH ASSEMBLER OPERATOR.HEAD WORKER Work Phone: [facility] 09-18-1985 diphtheria, tetanus toxoids and acellular pertussis vaccine Carolina Najdovski BENCH ASSEMBLER OPERATOR.HEAD WORKER Work Phone: [facility] 09-18-1985 trivalent poliovirus vaccine, live, oral Carolina Najdovski BENCH ASSEMBLER OPERATOR.HEAD WORKER Work Phone: [facility] 08-18-1982 diphtheria, tetanus toxoids and acellular pertussis vaccine Carolina Najdovski BENCH ASSEMBLER OPERATOR.HEAD WORKER Work Phone: [facility] 08-18-1982 measles, mumps and rubella virus vaccine Carolina Najdovski BENCH ASSEMBLER OPERATOR.HEAD WORKER Work Phone: [facility] 02-12-1981 diphtheria, tetanus toxoids and acellular pertussis vaccine Carolina Najdovski BENCH ASSEMBLER OPERATOR.HEAD WORKER Work Phone: [facility] 02-12-1981 trivalent poliovirus vaccine, live, oral Carolina Najdovski BENCH ASSEMBLER OPERATOR.HEAD WORKER Work Phone: [facility] 1980 diphtheria, tetanus toxoids and acellular pertussis vaccine Carolina Najdovski BENCH ASSEMBLER OPERATOR.HEAD WORKER Work Phone: [facility] 1980 trivalent poliovirus vaccine, live, oral Carolina Ann BENCH ASSEMBLER OPERATOR.HEAD WORKER Work Phone: [facility] 1980 diphtheria, tetanus toxoids and acellular pertussis vaccine Carolina Pachecofrancisca BENCH ASSEMBLER OPERATOR.HEAD WORKER Work Phone: [facility] 1980 trivalent poliovirus vaccine, live, oral Carolina Pachecofrancisca BENCH ASSEMBLER OPERATOR.HEAD WORKER Work Phone: [facility] Payers Date Payer Category Payer Unknown [employer]E SS PPO [id number] 2021-Present [phone] [address] [place] [id number] PPO [id number] 2021 Unknown [id number] 2018 Unknown [employer] BLUE CARD PPO OOS [id number] 2018-Present [phone] [address] [place] [address] PPO [id number] Social History Date Type Detail Facility Start: 09-14-2010 End: 02-17-2022 Tobacco smoking status NHIS Ex-smoker [facility] End: 05-14-2006 History of tobacco use Current smoker [facility] Start: 09-14-2010 End: 10-19-2022 Cigarettes smoked current (pack per day) - Reported 0.5 [facility] Start: 09-14-2010 End: 02-17-2022 Tobacco use and exposure Smokeless tobacco non-user [facility] Start: 10-07-2021 End: 03-23-2023 Alcohol intake Current drinker of alcohol (finding) [facility] Start: 09-14-2010 History SDOH Alcohol Comment occasional [facility] Start: 1980 Sex Assigned At Not on file [facility] End: 05-14-2006 History of tobacco use Cigarette Smoker [facility] Start: 10-19-2022 End: 12-10-2022 Tobacco use panel [facility] Adult Depression Screening Assessment 0 [facility] Clinical Notes 10-07-2021 to 03-23-2023 Patient InstructionsCarolina Juarez APRN.HEAD WORKER - 03/23/2023 9:30 AM ESTPatient InstructionsCarolina Juarez APRN.CNP - 12/20/2022 3:30 PM EDTMAlejandro Enriquez MD - 12/10/2022 2:47 PM EDT Note Date & Type Note Facility 03-23-2023 Note HNO ID: [id number] Author: Carolina Juarez APRN.CNP Service: ? Author [...] for migraine Informed Consent Consent Obtained: Written Monument Protocol A moment to CARE was completed SIGN IN Personnel directly involved with the procedure wore the appropriate PPE Special Equipment: N/A Patient/Surrogate Stated/Verified: Patient name, Date of , Relevant allergies and Intended (more content not included)... [facility] 03-23-2023 Instructions Carolina Juarez APRN.[facility] - 03/23/2023 9:37 AM EST AFTER [...] next Botox Injection documented in this encounter [facility] 03-23-2023 History of Presen t illness Narrative [...] for migraine Informed Consent Consent Obtained: Written Monument Protocol A moment to CARE was completed [...] applicable Written Consent Obtained: Written LOT #: [id number] Expiration Date: Month: 3 Year: 2025 Second vial: LOT #: [id number] Expiration Date: Month: 3 Year: 2025 Injection Sites Left (Units) Left (Sites) Right (Units) Right (Sites) TOTAL (Units) Mason Liner 5 1 5 1 10 Procerus Units: [...] Goody s) Ibuprofen (Advil, Motrin) Carolina Juarez APRN.HEAD WORKER documented in this encounter [facility] 12-20-2022 Note HNO ID: [id number] Author: Carolina Juarez APRN.HEAD WORKER Service: ? Author Type: Nurse Practitioner Type: [...] impact) 65 (Severe impact) 61 (Severe impact) JOSES - 2/7 SCORES 09/21/2020 12/31/2020 01/09/2022 JOSSE-2 [...] for migraine Informed Consent Consent Obtained: Written Monument Protocol A moment to CARE was completed SIGN IN Personnel directly involved with the procedure wore the appropriate PPE Special Equipment: N/A Patient/Surrogate Stated/Verified: Patient name, Date of , Relevant allergies and Intended procedure TIME OUT Intended patient and procedure match the source document(s) Consent documented and matches the intended procedure (more content not included)... [facility] 12-20-2022 Instructions Carolina Juarez APRN.[facility] - 12/20/2022 [...] next Botox Injection documented in this encounter [facility] 12-20-2022 History of Presen t illness Narrative [...] for migraine Informed Consent Consent Obtained: Written Monument Protocol A moment to CARE was completed [...] applicable Written Consent Obtained: Written LOT #: [id number] Expiration Date: Month: Year: 2024 Second vial: LOT #: [id number] Expiration Date: Month: Year: 2024 Injection Sites Left (Units) Left (Sites) Right (Units) Right (Sites) TOTAL (Units) Mason Liner 5 1 5 1 10 Procerus Units: [...] Carolina Juarez APRN.MARCELLUS documented in this encounter [facility] 12-12-2022 Miscellaneous Notes Patient given results and verbalized understanding of instructions given. Laure Rutherford No growth on urine culture. Patient should follow-up with primary care provider to make sure the blood is cleared from her urine. If patient symptoms are worsening she should also follow-up with primary care. documented in this encounter [facility] 12-10-2022 Note HNO ID: [id number] Author: Alejandro Palma MD Service: ? Author [...] 100 MG ORAL CAP Alejandro Palma MD [facility] 12-10-2022 History of Presen t illness Narrative [...] Alejandro Palma MD documented in this encounter [facility] 08-26-2022 Note HNO ID: [id number] Author: Brianda Lehman APRN.HEAD WORKER Service: ? Author Type: Nurse Practitioner Type: [...] history is provided by the patient. No family support coordinator was used. Cough This is a new [...] murmur heard. No (more content not included)... [facility] 08-26-2022 History of Presen t illness Narrative This note was created using Chideoriter. Subjective Dona Saunders is a 42 year [...] history is provided by the patient. No family support coordinator was used. Cough This is a new [...] if symptoms persist or worsen. Brianda Lehman APRN.HEAD WORKER documented in this encounter [facility] 07-21-2022 Miscellaneous Notes PA submitted via covermymeds. Nurtec Dona Sheryl Saunders ([place]: [id number]) This request has been approved. Outcome Approved today CaseId:[id number];Status:Approved; Review Type:Prior Auth;Coverage Start Date:06/21/2022; Coverage End Date:07/21/2023; Drug Nurtec 75MG dispersible tablets Joel Doyle RN July 21, 2022 9:02 AM Prior Authorization for Medications Requested by (MyChart, Pharmacy, Patient Call, Fax) : Fax Pharmacy Name: [email or web address] Phone # : [phone] Name of Medication : Nurtec ODT Dose : 75mg If renewal, auth date expiration: NA Prescribing Provider: Ann Last OV: 07/14/22 with Ann Insurance Provider : Joya/ Piter Piedra Is insurance card scanned in, including Rx info? Yes Rx ID number: [id number] Rx BIN: [id number] Rx PCN: NA Rx Grp: [id number] Insurance CoverMyMeds [place]: [id number] E-PA? Yes documented in this encounter [facility] 07-14-2022 Instructions Carolina Juarez APRN.CNP - 07/14/2022 [...] next Botox Injection documented in this encounter [facility] 07-14-2022 Note HNO ID: [id number] Author: Carolina Juarez APRN.MARCELLUS Service: ? Author [...] 113.4 kg (2 (more content not included)... [facility] 07-14-2022 History of Presen t illness Narrative [...] for migraine Informed Consent Consent Obtained: Written Monument Protocol A moment to CARE was completed [...] applicable Written Consent Obtained: Written LOT #: [id number] Expiration Date: Month: Year: 2024 Second vial: LOT #: [id number] Expiration Date: Month: Year: 2024 Injection Sites Left (Units) Left (Sites) Right (Units) Right (Sites) TOTAL (Units) Mason Liner 5 1 5 1 10 Procerus Units: [...] Goody s) Ibuprofen (Advil, Motrin) Carolina Juarez APRN.HEAD WORKER documented in this encounter [facility] 04-14-2022 Miscellaneous Notes Botox referral sent to pharmacy Joel Doyle RN April 14, 2022 2:50 PM documented in this encounter [facility] 04-14-2022 Note HNO ID: [id number] Author: Carolina Juarez APRN.MARCELLUS Service: ? Author [...] for migraine Informed Consent Consent Obtained: Written Monument Protocol A moment to CARE was completed [...] applicable Written Consent Obtained: Written LOT #: [id number] Expiration Date: Month: Year: 2023 Second vial: LOT #: [id number] Expiration Date: Month: 4 Year: 2023 Injection Sites Left (Units) Left (Sites) Right (Units) Right (Sites) TOTAL (Units) Mason Liner 5 1 5 1 10 Procerus Units: [...] (Lexapro) Antiemetics Promethazine (more content not included)... [facility] 04-14-2022 History of Presen t illness Narrative [...] for migraine Informed Consent Consent Obtained: Written Monument Protocol A moment to CARE was completed [...] applicable Written Consent Obtained: Written LOT #: [id number] Expiration Date: Month: Year: 2023 Second vial: LOT #: [id number] Expiration Date: Month: Year: 2023 Injection Sites Left (Units) Left (Sites) Right (Units) Right (Sites) TOTAL (Units) Mason Liner 5 1 5 1 10 Procerus Units: [...] Goody s) Ibuprofen (Advil, Motrin) Carolina Juarez APRN.HEAD WORKER documented in this encounter [facility] 04-14-2022 Instructions Carolina Juarez APRN.HEAD WORKER - 04/14/2022 10:55 AM EST AFTER VISIT [...] next Botox Injection documented in this encounter [facility] 04-11-2022 Miscellaneous Notes Physician: Ann Call from [...] Name: Rudy Sanchez documented in this encounter [facility] 10-07-2021 Instructions Carolina Juarez APRN.HEAD WORKER - 10/07/2021 1:04 PM EDT AFTER VISIT [...] next Botox Injection documented in this encounter [facility] 10-07-2021 History of Presen t illness Narrative [...] for migraine Informed Consent Consent Obtained: Written Monument Protocol A moment to CARE was completed [...] applicable Written Consent Obtained: Written LOT #: [id number] Expiration Date: Month: Year: 2023 Second vial: LOT #: [id number] Expiration Date: Month: Year: 2023 Injection Sites Left (Units) Left (Sites) Right (Units) Right (Sites) TOTAL (Units) Mason Liner 5 1 5 1 10 Procerus Units: [...] Goody s) Ibuprofen (Advil, Motrin) Carolina Juarez APRN.HEAD WORKER documented in this encounter [facility] Diagnosis Chronic migraine without aura, intractable, without status migrainosus- Primary documented in this encounter [facility] note* Diagnosis Chronic migraine without aura, intractable, without status migrainosus- Primary Nausea and vomiting, unspecified vomiting type documented in this encounter [facility] note* Diagnosis Rhinosinusitis- Primary Unspecified sinusitis (chronic) documented in this encounter [facility] note* Diagnosis Urinary frequency- Primary documented in this encounter [facility] note* Diagnosis Chronic migraine without aura, intractable, without status migrainosus- Primary documented in this encounter [facility] note* Diagnosis Chronic migraine without aura, intractable, without status migrainosus- Primary documented in this encounter [facility] Medications Administered Section Inactive Administered Medications - [...] or prosecute any alcohol or drug abuse patient.[facility] the event this information is protected by the Federal Confidentiality of Alcohol and Drug Abuse Patient Records regulations: The Federal rules restrict any use of the information to criminally investigate or prosecute any alcohol or drug abuse patient.[facility] the event this information is protected by the Federal Confidentiality of Alcohol and Drug Abuse Patient Records regulations: The Federal rules restrict any use of the information to criminally investigate or prosecute any alcohol or drug abuse patient.[facility] the event this information is protected by the Federal Confidentiality of Alcohol and Drug Abuse Patient Records regulations: The Federal rules restrict any use of the information to criminally investigate or prosecute any alcohol or drug abuse patient.[facility] Center[facility] the event this information is protected by the Federal Confidentiality of Alcohol and Drug Abuse Patient Records regulations: The Federal rules restrict any use of the information to criminally investigate or prosecute any alcohol or drug abuse patient.[facility] CenterIn the event this information is protected by the Federal Confidentiality of Alcohol and Drug Abuse Patient Records regulations: The Federal rules restrict any use of the information to criminally investigate or prosecute any alcohol or drug abuse patient.[facility] CenterIn the event this information is protected by the Federal Confidentiality of Alcohol and Drug Abuse Patient Records regulations: The Federal rules restrict any use of the information to criminally investigate or prosecute any alcohol or drug abuse patient.[facility] Center[facility] the event this information is protected by the Federal Confidentiality of Alcohol and Drug Abuse Patient Records regulations: The Federal rules restrict any use of the information to criminally investigate or prosecute any alcohol or drug abuse patient.[facility] CenterIn the event this information is protected by the Federal Confidentiality of Alcohol and Drug Abuse Patient Records regulations: The Federal rules restrict any use of the information to criminally investigate or prosecute any alcohol or drug abuse patient.[facility] CenterIn the event this information is protected by the Federal Confidentiality of Alcohol and Drug Abuse Patient Records regulations: The Federal rules restrict any use of the information to criminally investigate or prosecute any alcohol or drug abuse patient.[facility] CenterIn the event this information is protected by the Federal Confidentiality of Alcohol and Drug Abuse Patient Records regulations: The Federal rules restrict any use of the information to criminally investigate or prosecute any alcohol or drug abuse patient.[facility] the event this information is protected by the Federal Confidentiality of Alcohol and Drug Abuse Patient Records regulations: The Federal rules restrict any use of the information to criminally investigate or prosecute any alcohol or drug abuse patient.[facility] Reason for Visit (unrecogniz ed section and content) Specialty Diagnoses / Procedures Referred By Contac t Referred To Contact HEADACHE Diagnoses Chronic migraine without aura, intractable, without status migrainosus Procedures BOTULINUM TOXIN A PER 1 UNIT CHEMODERVATE FACIAL/TRIGEM/CERV MUSC MIGRAINE Renewal due 06/15/2022 Botox 200 units every 12 weeks for 1 year through [facility] buy and bill. Preempt protocol [id number] Procedure -[id number] chemodervate facial/trigem/cerv musc migraine Carolina Juarez, BENCH ASSEMBLER OPERATOR.HEAD WORKER [address] [place] [address] Neur Headache [address] [place] [address] Referral ID Status Reason Start Date Expiration Date V isits Requested Visits Authorized [id number] Authorized 07/14/2022 05/14/2023 99 99 Reason Comments Neurotoxin Injection Specialty Diagnoses / Procedures Referred By Contac t Referred To Contact Neurology / HEADACHE Diagnoses Chronic migraine without aura, intractable, without status migrainosus G43.719 Procedures CHEMODERVATE FACIAL/TRIGEM/CERV MUSC MIGRAINE BOTULINUM TOXIN A PER 1 UNIT Botox 200 units every 90 days for 1 year through [facility] buy and bill Preempt protocol J0585 Procedure -[id number] chemodervate facial/trigem/cerv musc migraine Carolina Juarez, BENCH ASSEMBLER OPERATOR.HEAD WORKER [address] [place] [address] Carolina Juarez, BENCH ASSEMBLER OPERATOR.HEAD WORKER [address] [place] [address] Referral ID Status Reason Start Date Expiration Date V isits Requested Visits Authorized [id number] Authorized 06/17/2021 05/14/2022 4 4 Reason Onset Date Comments Refill Request 04/09/2022 Reason Comments Refill Request Referral ID Status Reason Start Date Expiration Date Visits Re quested Visits Authorized [id number] Closed 06/17/2021 05/14/2022 4 4 Reason Comments Referral Request Reason Comments Insurance Authorization [facility] Reason Comments Cough ST, chest congestion , fever, REHMAN x3 weeks Reason Comments Urinary Frequency Frequency and burnin g x 5 days Reason Comments Results Care Teams (unrecognized sec tion and content) Body Presser Relationship Specialty Start Date End Date Ashley Mari MD [address] [place] [address] PCP - General Internal Medicine 03/14/17 Body Presser Relationship Specialty Start Date End Date Ashley Mari MD [address] [place], [place] [id number] PCP - General Internal Medicine 03/14/17 Body Presser Relationship Specialty Start Date End Date Ashley Mari MD [address] [place], [place] [id number] PCP - General Internal Medicine 03/14/17 Body Presser Relationship Specialty Start Date End Date Ashley Mari MD [address] [place], [place] [id number] PCP - General Internal Medicine 03/14/17 Body Presser Relationship Specialty Start Date End Date Harsha Hernández MD [address] [place] [address] PCP - General Family Medicine 08/26/22 Body Presser Relationship Specialty Start Date End Date Harsha Hernández MD [address] [place] [address] PCP - General Family Medicine 08/26/22 Body Presser Relationship Specialty Start Date End Date Harsha Hernández MD [address] [place] [address] PCP - General Family Medicine 08/26/22 Body Presser Relationship Specialty Start Date End Date Harsha Hernández MD [address] [place] [address] PCP - General Family Medicine 08/26/22 Body Presser Relationship Specialty Start Date End Date Harsha Hernández MD [address] [place] [address] PCP - General Family Medicine 08/26/22 INFORMATION [...] BE BASED ON THE PRIMARY CLINICAL RECORDS. [facility] [employer] [facility]. provides no warranty or guarantee of the accuracy or completeness of information in this document.
--- NOTE | 2023-07-13 08:12 | MRI_ITS ---
STUDY: BILATERAL BREAST MR WITHOUT AND WITH CONTRAST REASON FOR EXAM: Female, 42 years old. Positive left axillary lymph node biopsy. TECHNIQUE: Multi-sequence multi-echo imaging of both breasts was performed with a dedicated breast coil. T1-weighted and T2-weighted images were performed before the administration of contrast. T1-weighted images were also performed after the intravenous administration of 19 cc of Clariscan contrast. COMPARISON: Bilateral mammograms dated 08/17/2021, 09/06/2022 and 06/29/2023. Left breast ultrasound dated 06/29/2023. FINDINGS: RIGHT BREAST: Scattered fibroglandular densities with minimal background enhancement. No abnormal enhancing masses or areas of non-mass enhancement in the right breast. LEFT BREAST: Scattered fibroglandular densities with minimal background enhancement. There are multiple enhancing masses and non-mass enhancement in the anterior aspect involving the upper inner quadrant, upper outer quadrant and lower outer quadrant. This measures at least 5 cm in total transverse diameter and at least 4.7 cm in sagittal diameter. These findings are compatible with multicentric involvement of tumor. Multiple extremely enhancing abnormal left axillary lymph nodes. Prominent minimal enhancement in the subpectoral region and questionably in the anterior mediastinum. 4 these findings, a chest CT with contrast is recommended for further evaluation. 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 Chest CT with contrast for further evaluation would be appropriate prior to definitive therapy. CATEGORY: BIRADS Category 6: Known Biopsy-Proven Malignancy - Appropriate Action Should Be Taken. A letter regarding these results will be sent to the patient by the facility within 30 days. Electronically Signed: Maikel Gold MD at 14:10 EST ,
== END | disposition home or self-care (01) ==
PROVIDERS: PCP Family Medicine; Referring Provider Surgery; Visit Provider Surgery
DX: D24.9 Benign neoplasm of unspecified breast (principal)
CPT/HCPCS: 77049; A9575; A4216; C8908

== ENCOUNTER → 2023-07-14 | Outpatient (CLI) | payer BC, SELFPAY ==
--- NOTE | 2023-07-14 13:15 | US_ITS ---
STUDY: ULTRASOUND BREAST - LEFT REASON FOR EXAM: Female, 42 years old. Left breast masses. TECHNIQUE: Axial and longitudinal images of the LEFT breast were performed with a high resolution ultrasound transducer. # OF IMAGES: 115 COMPARISON: Comparison is made with prior MRI of the breast dated July 13, 2023. FINDINGS: LEFT Breast: The upper half as well as the outer lower quadrant of the left breast was examined with ultrasound. There are at least 10 hypoechoic solid nodules scattered throughout the breast. The largest nodule is at the 12:00 position of the breast at 2 cm from nipple measuring 1.2 cm x 1 cm x 0.6 cm. These nodules are suspicious. Biopsy recommended. US/Breast Limited Unilateral IMPRESSION: Multiple nodules are seen in the left breast as described. Biopsy recommended. ASSESSMENT CATEGORY: BIRADS Category 4: Suspicious - Biopsy Should Be Considered. A letter regarding these results will be sent to the patient by the facility within 30 days. Electronically Signed: Greyson Waters MD at 15:18 EST ,
--- OUTSIDE RECORDS SUMMARY | 2023-07-14 14:12 | XMS RPT_ITS | CCD ---
Author Name Unknown Address [address] [place] [address] Organization [facility] Care Team Providers Care 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 Name Role Phone Ashley Mari MD Primary [...] 160 cm Carolina Juarez APRN.CNP Work Phone: [facility] 03-23-2023 09:33-0500 Body weight 97.52 kg Carolina Juarez APRN.CNP Work Phone: [facility] 03-23-2023 09:33-0500 Diastolic blood pressure 84 mm[Hg] Carolina Juarez APRN.CNP Work Phone: [facility] 03-23-2023 09:33-0500 Heart rate 75 /min Carolina Juarez FILLING SEPARATOR.WEB PAGE DEVELOPER Work Phone: [facility] 03-23-2023 09:33-0500 Systolic blood pressure 122 mm[Hg] Carolina Juarez FILLING SEPARATOR.WEB PAGE DEVELOPER Work Phone: [facility] 12-20-2022 15:01-0400 Body height 160 cm Carolina Juarez FILLING SEPARATOR.WEB PAGE DEVELOPER Work Phone: [facility] 12-20-2022 15:01-0400 Body weight 105.69 kg Carolina Juarez FILLING SEPARATOR.WEB PAGE DEVELOPER Work Phone: [facility] 12-20-2022 15:01-0400 Diastolic blood pressure 86 mm[Hg] Carolina Juarez FILLING SEPARATOR.WEB PAGE DEVELOPER Work Phone: [facility] 12-20-2022 15:01-0400 Heart rate 73 /min Carolina Juarez FILLING SEPARATOR.WEB PAGE DEVELOPER Work Phone: [facility] 12-20-2022 15:01-0400 SaO2% (BldA) [Mass fraction] 97 % Carolina Juarez FILLING SEPARATOR.WEB PAGE DEVELOPER Work Phone: [facility] 12-20-2022 15:01-0400 Systolic blood pressure 133 mm[Hg] Carolina Juarez FILLING SEPARATOR.WEB PAGE DEVELOPER Work Phone: [facility] 12-10-2022 14:42-0400 Body temperature 99.39 [degF] Alejandro Palma MD Work Phone: [facility] 12-10-2022 14:42-0400 Body weight 107.68 kg Alejandro Palma MD Work Phone: [facility] 12-10-2022 14:42-0400 Diastolic blood pressure 84 mm[Hg] Alejandro Palma MD Work Phone: [facility] 12-10-2022 14:42-0400 Heart rate 70 /min Alejandro Palma MD Work Phone: [facility] 12-10-2022 14:42-0400 Respiratory rate 16 /min Alejandro Palma MD Work Phone: [facility] 12-10-2022 14:42-0400 SaO2% (BldA) [Mass fraction] 100 % Alejandro Palma MD Work Phone: [facility] 12-10-2022 14:42-0400 Systolic blood pressure 128 mm[Hg] Alejandro Palma MD Work Phone: [facility] 08-26-2022 07:30-0400 Body temperature 98.8 [degF] Brianda Lehman FILLING SEPARATOR.WEB PAGE DEVELOPER Work Phone: [facility] 08-26-2022 07:30-0400 Body weight 114.85 kg Brianda Lehman FILLING SEPARATOR.WEB PAGE DEVELOPER Work Phone: [facility] 08-26-2022 07:30-0400 Diastolic blood pressure 88 mm[Hg] Brianda Lehman FILLING SEPARATOR.WEB PAGE DEVELOPER Work Phone: [facility] 08-26-2022 07:30-0400 Heart rate 96 /min Brianda Lehman FILLING SEPARATOR.WEB PAGE DEVELOPER Work Phone: [facility] 08-26-2022 07:30-0400 Respiratory rate 20 /min Brianda Lehman FILLING SEPARATOR.WEB PAGE DEVELOPER Work Phone: [facility] 08-26-2022 07:30-0400 SaO2% (BldA) [Mass fraction] 97 % Brianda Lehman FILLING SEPARATOR.WEB PAGE DEVELOPER Work Phone: [facility] 08-26-2022 07:30-0400 Systolic blood pressure 126 mm[Hg] Brianda Lehman FILLING SEPARATOR.WEB PAGE DEVELOPER Work Phone: [facility] 07-14-2022 11:45-0500 Body height 160 cm Carolina Juarez FILLING SEPARATOR.WEB PAGE DEVELOPER Work Phone: [facility] 07-14-2022 11:45-0500 Body weight 113.4 kg Carolina Najdovski FILLING SEPARATOR.WEB PAGE DEVELOPER Work Phone: [facility] 07-14-2022 11:45-0500 Diastolic blood pressure 82 mm[Hg] Carolina Najdovski FILLING SEPARATOR.WEB PAGE DEVELOPER Work Phone: [facility] 07-14-2022 11:45-0500 Heart rate 86 /min Carolina Najdovski FILLING SEPARATOR.WEB PAGE DEVELOPER Work Phone: [facility] 07-14-2022 11:45-0500 Systolic blood pressure 140 mm[Hg] Carolina Najdovski FILLING SEPARATOR.WEB PAGE DEVELOPER Work Phone: [facility] 04-14-2022 10:52-0500 Body height 160 cm Carolina Najdovski FILLING SEPARATOR.WEB PAGE DEVELOPER Work Phone: [facility] 04-14-2022 10:52-0500 Body weight 111.58 kg Carolina Najdovski FILLING SEPARATOR.WEB PAGE DEVELOPER Work Phone: [facility] 04-14-2022 10:52-0500 Diastolic blood pressure 76 mm[Hg] Carolina Najdovski FILLING SEPARATOR.WEB PAGE DEVELOPER Work Phone: [facility] 04-14-2022 10:52-0500 Heart rate 83 /min Carolina Najdovski FILLING SEPARATOR.WEB PAGE DEVELOPER Work Phone: [facility] 04-14-2022 10:52-0500 Systolic blood pressure 128 mm[Hg] Carolina Najdovski FILLING SEPARATOR.WEB PAGE DEVELOPER Work Phone: [facility] 10-07-2021 13:00-0400 Body weight 120.2 kg Carolina Najdovski FILLING SEPARATOR.WEB PAGE DEVELOPER Work Phone: [facility] 10-07-2021 13:00-0400 Diastolic blood pressure 82 mm[Hg] Carolina Najdovski FILLING SEPARATOR.WEB PAGE DEVELOPER Work Phone: [facility] 10-07-2021 13:00-0400 Heart rate 100 /min Carolina Najdovski FILLING SEPARATOR.WEB PAGE DEVELOPER Work Phone: [facility] 10-07-2021 13:00-0400 Systolic blood pressure 121 mm[Hg] Carolina Juarez APRN.CNP Work Phone: [facility] Encounters Encounter Date Encounter Type Care Provider Facility Start: 03-23-2023 End: 03-23-2023 ambulatory HARSHA HERNÁNDEZ Facility:[facility] Start: 03-23-2023 End: 03-23-2023 Patient encounter procedure Carolina uJarez APRN.CNP Work Phone: Neurology Procedures Date Procedure Procedure Detail Performing Clinician Start: 12-10-2022 Urnls dip stick/tabl et rgnt auto w/o microscopy Sarahi Dennison PA-C Work Phone: Start: 12-31-2020 Adult depression screening assessment Carolina Juarez APRN.CNP Work Phone: Plan of Treatment Date Care Activity Detail Author Start: 01-13-2023 Influenza vaccination [facility] Start: 05-15-2022 DEPRESSION ASSESSMENT DEPRESSION ASSESSMENT [facility] Start: 05-15-2022 Urine microalbumin profile DTaP,Tdap,Td Vaccine (7 - Td or Tdap) [facility] Start: 01-13-2022 Influenza vaccination [facility] Start: 12-31-2021 Adult depression screening assessment DEPRESSION SCREENING [facility] Start: 05-15-2021 DEPRESSION ASSESSMENT DEPRESSION ASSESSMENT [facility] Start: 2020 Mammography [facility] Start: 2010 HPV TESTING HPV TESTING [facility] Start: 2001 PAP TESTING PAP TESTING [facility] Start: 1998 HEPATITIS C SCREENING HEPATITIS C SCREENING [facility] Start: 1998 HIV SCREENING HIV SCREENING [facility] Start: 08-18-1991 Urine microalbumin profile DTAP,TDAP,TD (6 - Tdap) [facility] Start: 1985 COVID-19 VACCINE (#1) COVID-19 VACCINE (#1) [facility] Start: 02-16-1981 COVID-19 VACCINE (#1) COVID-19 VACCINE (#1) [facility] Start: 1980 HEPATITIS B (1 of 3 - 3-dose series) HEPATITIS B (1 of 3 - 3-dose series) [facility] Start: 1980 Hepatitis B Vaccine (1 of 3 - 3-dose series) Hepatitis B Vaccine (1 of 3 - 3-dose series) [facility] Bacteria identified in Urine by Culture URINE CULTURE Microbiology Routine Urinary frequency Ordered: 12/10/2022 [facility] Work Phone: Immunizations Immunization Date Immunization Notes Care Provider Fa cili 02-15-2016 influenza, seasonal, injectable Carolina Nademetrisovski FILLING SEPARATOR.WEB PAGE DEVELOPER Work Phone: [facility] 02-15-2016 influenza virus vacc ine, unspecified formulation Carolina Najdovski FILLING SEPARATOR.WEB PAGE DEVELOPER Work Phone: [facility] 06-18-1992 measles, mumps and rubella virus vaccine Carolina Najdovski FILLING SEPARATOR.WEB PAGE DEVELOPER Work Phone: [facility] 09-18-1985 diphtheria, tetanus toxoids and acellular pertussis vaccine Carolina Najdovski FILLING SEPARATOR.WEB PAGE DEVELOPER Work Phone: [facility] 09-18-1985 trivalent poliovirus vaccine, live, oral Carolina Najdovski FILLING SEPARATOR.WEB PAGE DEVELOPER Work Phone: [facility] 08-18-1982 diphtheria, tetanus toxoids and acellular pertussis vaccine Carolina Najdovski FILLING SEPARATOR.WEB PAGE DEVELOPER Work Phone: [facility] 08-18-1982 measles, mumps and rubella virus vaccine Carolina Najdovski FILLING SEPARATOR.WEB PAGE DEVELOPER Work Phone: [facility] 02-12-1981 diphtheria, tetanus toxoids and acellular pertussis vaccine Carolina Najdovski FILLING SEPARATOR.WEB PAGE DEVELOPER Work Phone: [facility] 02-12-1981 trivalent poliovirus vaccine, live, oral Carolina Najdovski FILLING SEPARATOR.WEB PAGE DEVELOPER Work Phone: [facility] 1980 diphtheria, tetanus toxoids and acellular pertussis vaccine Carolina Najdovski FILLING SEPARATOR.WEB PAGE DEVELOPER Work Phone: [facility] 1980 trivalent poliovirus vaccine, live, oral Carolina Ann FILLING SEPARATOR.WEB PAGE DEVELOPER Work Phone: [facility] 1980 diphtheria, tetanus toxoids and acellular pertussis vaccine Carolina Pachecofrancisca FILLING SEPARATOR.WEB PAGE DEVELOPER Work Phone: [facility] 1980 trivalent poliovirus vaccine, live, oral Carolina Pachecofrancisca FILLING SEPARATOR.WEB PAGE DEVELOPER Work Phone: [facility] Payers Date Payer Category Payer Unknown [employer] SS PPO [id number] 2021-Present [phone] [address] [place] [id number] PPO [id number] 2021 Unknown [id number] 2018 Unknown [employer] CARD PPO OOS [id number] 2018-Present [phone] [address] [place] [address] PPO [id number] Social History Date Type Detail Facility Start: 09-14-2010 End: 02-17-2022 Tobacco smoking status NHIS Ex-smoker [facility] End: 05-14-2006 History of tobacco use Current smoker [facility] Start: 09-14-2010 End: 10-19-2022 Cigarettes smoked current (pack per day) - Reported 0.5 [facility] Start: 09-14-2010 End: 02-17-2022 Tobacco use and exposure Smokeless tobacco non-user [facility] Start: 10-07-2021 End: 03-23-2023 Alcohol intake Current drinker of alcohol (finding) [facility] Start: 09-14-2010 History SDOH Alcohol Comment occasional [facility] Start: 1980 Sex Assigned At Not on file C [facility] End: 05-14-2006 History of tobacco use Cigarette Smoker [facility] Start: 10-19-2022 End: 12-10-2022 Tobacco use panel [facility] Adult Depression Screening Assessment 0 [facility] Clinical Notes 10-07-2021 to 03-23-2023 Patient InstructionsCarolina Juarez APRN.WEB PAGE DEVELOPER - 03/23/2023 9:30 AM ESTPatient InstructionsCarolina Juarez APRN.CNP - 12/20/2022 3:30 PM EDTMAlejandro Enriquez MD - 12/10/2022 2:47 PM EDT Note Date & Type Note Facility 03-23-2023 Note HNO ID: [id number] Author: Carolina Juarez APRN.CNP Service: ? Author [...] for migraine Informed Consent Consent Obtained: Written [place] Protocol A moment to CARE was completed SIGN IN Personnel directly involved with the procedure wore the appropriate PPE Special Equipment: N/A Patient/Surrogate Stated/Verified: Patient name, Date of , Relevant allergies and Intended (more content not included)... [facility] 03-23-2023 Instructions Carolnia Juarez APRN.[facility] - 03/23/2023 9:37 AM EST AFTER [...] next Botox Injection documented in this encounter [facility] 03-23-2023 History of Presen t illness [...] for migraine Informed Consent Consent Obtained: Written [place] Protocol A moment to CARE was completed [...] applicable Written Consent Obtained: Written LOT #: [id number] Expiration Date: Month: 3 Year: 2025 Second vial: LOT #: [id number] Expiration Date: Month: 3 Year: 2025 Injection Sites Left (Units) Left (Sites) Right (Units) Right (Sites) TOTAL (Units) Electrocardiograph Technician 5 1 5 1 10 Procerus Units: [...] Goody s) Ibuprofen (Advil, Motrin) Carolina Juarez APRN.WEB PAGE DEVELOPER documented in this encounter [facility] 12-20-2022 Note HNO ID: [id number] Author: Carolina Juarez APRN.WEB PAGE DEVELOPER Service: ? Author Type: Nurse Practitioner Type: [...] for migraine Informed Consent Consent Obtained: Written [place] Protocol A moment to CARE was completed SIGN IN Personnel directly involved with the procedure wore the appropriate PPE Special Equipment: N/A Patient/Surrogate Stated/Verified: Patient name, Date of , Relevant allergies and Intended procedure TIME OUT Intended patient and procedure match the source document(s) Consent documented and matches the intended procedure (more content not included)... [facility] 12-20-2022 Instructions Carolina Juarez APRN.MARCELLUS - [...] next Botox Injection documented in this encounter [facility] 12-20-2022 History of Presen t illness [...] for migraine Informed Consent Consent Obtained: Written [place] Protocol A moment to CARE was completed [...] applicable Written Consent Obtained: Written LOT #: [id number] Expiration Date: Month: Year: 2024 Second vial: LOT #: [id number] Expiration Date: Month: Year: 2024 Injection Sites Left (Units) Left (Sites) Right (Units) Right (Sites) TOTAL (Units) Electrocardiograph Technician 5 1 5 1 10 Procerus Units: [...] Carolina Juarez APRN.MARCELLUS documented in this encounter [facility] 12-12-2022 Miscellaneous Notes Patient given results and verbalized understanding of instructions given. Laure Rutherford No growth on urine culture. Patient should follow-up with primary care provider to make sure the blood is cleared from her urine. If patient symptoms are worsening she should also follow-up with primary care. documented in this encounter [facility] 12-10-2022 Note HNO ID: [id number] Author: Alejandro Palma MD Service: ? Author [...] 100 MG ORAL CAP Alejandro Palma MD [facility] 12-10-2022 History of Presen t illness [...] Alejandro Palma MD documented in this encounter [facility] 08-26-2022 Note HNO ID: [id number] Author: Brianda Lehman APRN.WEB PAGE DEVELOPER Service: ? Author Type: Nurse Practitioner Type: [...] history is provided by the patient. No paper machine back tender was used. Cough This is a new [...] murmur heard. No (more content not included)... [facility] 08-26-2022 History of Presen t illness Narrative This note was created using Docuratedriter. Subjective Dona Saunders is a 42 year [...] history is provided by the patient. No paper machine back tender was used. Cough This is a new [...] if symptoms persist or worsen. Brianda Lehman APRN.WEB PAGE DEVELOPER documented in this encounter [facility] 07-21-2022 Miscellaneous Notes PA submitted via covermymeds. Nurtec Dona Sheryl Saunders ([place]: [id number]) This request has been approved. Outcome Approved today CaseId:[id number];Status:Approved; Review Type:Prior Auth;Coverage Start Date:06/21/2022; Coverage End Date:07/21/2023; Drug Nurtec 75MG dispersible tablets Joel Doyle RN July 21, 2022 9:02 AM Prior Authorization for Medications Requested by (MyChart, Pharmacy, Patient Call, Fax) : Fax Pharmacy Name: [facility] Phone # : [phone] Name of Medication : Nurtec ODT Dose : 75mg If renewal, auth date expiration: NA Prescribing Provider: Ann Last OV: 07/14/22 with Ann Insurance Provider : Joya/ Piter Piedra Is insurance card scanned in, including Rx info? Yes Rx ID number: [id number] Rx BIN: [id number] Rx PCN: NA Rx Grp: [id number] Insurance CoverMyMeds [place]: [id number] E-PA? Yes documented in this encounter [facility] 07-14-2022 Instructions Carolina Juarez APRN.CNP - [...] next Botox Injection documented in this encounter [facility] 07-14-2022 Note HNO ID: [id number] Author: Carolina Juarez APRN.MARCELLUS Service: ? Author [...] 113.4 kg (2 (more content not included)... [facility] 07-14-2022 History of Presen t illness [...] for migraine Informed Consent Consent Obtained: Written [place] Protocol A moment to CARE was completed [...] applicable Written Consent Obtained: Written LOT #: [id number] Expiration Date: Month: Year: 2024 Second vial: LOT #: [id number] Expiration Date: Month: Year: 2024 Injection Sites Left (Units) Left (Sites) Right (Units) Right (Sites) TOTAL (Units) Electrocardiograph Technician 5 1 5 1 10 Procerus Units: [...] Goody s) Ibuprofen (Advil, Motrin) Carolina Juarez APRN.WEB PAGE DEVELOPER documented in this encounter [facility] 04-14-2022 Miscellaneous Notes Botox referral sent to pharmacy Joel Doyle RN April 14, 2022 2:50 PM documented in this encounter [facility] 04-14-2022 Note HNO ID: [id number] Author: Carolina Juarez APRN.MARCELLUS Service: ? Author [...] for migraine Informed Consent Consent Obtained: Written [place] Protocol A moment to CARE was completed [...] applicable Written Consent Obtained: Written LOT #: [id number] Expiration Date: Month: Year: 2023 Second vial: LOT #: [id number] Expiration Date: Month: 4 Year: 2023 Injection Sites Left (Units) Left (Sites) Right (Units) Right (Sites) TOTAL (Units) Electrocardiograph Technician 5 1 5 1 10 Procerus Units: [...] (Lexapro) Antiemetics Promethazine (more content not included)... [facility] 04-14-2022 History of Presen t illness [...] for migraine Informed Consent Consent Obtained: Written [place] Protocol A moment to CARE was completed [...] applicable Written Consent Obtained: Written LOT #: [id number] Expiration Date: Month: Year: 2023 Second vial: LOT #: [id number] Expiration Date: Month: Year: 2023 Injection Sites Left (Units) Left (Sites) Right (Units) Right (Sites) TOTAL (Units) Electrocardiograph Technician 5 1 5 1 10 Procerus Units: [...] Goody s) Ibuprofen (Advil, Motrin) Carolina Juarez APRN.WEB PAGE DEVELOPER documented in this encounter [facility] 04-14-2022 Instructions Carolina Juarez APRN.WEB PAGE DEVELOPER - 04/14/2022 10:55 AM EST AFTER VISIT [...] next Botox Injection documented in this encounter [facility] 04-11-2022 Miscellaneous Notes Physician: Ann Call [...] Name: Rudy Sanchez documented in this encounter [facility] 10-07-2021 Instructions Carolina Juarez APRN.WEB PAGE DEVELOPER - 10/07/2021 1:04 PM EDT AFTER VISIT [...] next Botox Injection documented in this encounter [facility] 10-07-2021 History of Presen t illness [...] for migraine Informed Consent Consent Obtained: Written [place] Protocol A moment to CARE was completed [...] applicable Written Consent Obtained: Written LOT #: [id number] Expiration Date: Month: Year: 2023 Second vial: LOT #: [id number] Expiration Date: Month: Year: 2023 Injection Sites Left (Units) Left (Sites) Right (Units) Right (Sites) TOTAL (Units) Electrocardiograph Technician 5 1 5 1 10 Procerus Units: [...] Goody s) Ibuprofen (Advil, Motrin) Carolina Juarez APRN.WEB PAGE DEVELOPER documented in this encounter [facility] Chronic migraine without aura, intractable, without status migrainosus- Primary documented in this encounter [facility] note* Diagnosis Chronic migraine without aura, intractable, without status migrainosus- Primary Nausea and vomiting, unspecified vomiting type documented in this encounter [facility] note* Diagnosis Rhinosinusitis- Primary Unspecified sinusitis (chronic) documented in this encounter [facility] note* Diagnosis Urinary frequency- Primary documented in this encounter [facility] note* Diagnosis Chronic migraine without aura, intractable, without status migrainosus- Primary documented in this encounter [facility] note* Diagnosis Chronic migraine without aura, intractable, without status migrainosus- Primary documented in this encounter [facility] Medications Administered Section Inactive Administered Medications [...] or prosecute any alcohol or drug abuse patient.[facility] the event this information is protected by the Federal Confidentiality of Alcohol and Drug Abuse Patient Records regulations: The Federal rules restrict any use of the information to criminally investigate or prosecute any alcohol or drug abuse patient.[facility] the event this information is protected by the Federal Confidentiality of Alcohol and Drug Abuse Patient Records regulations: The Federal rules restrict any use of the information to criminally investigate or prosecute any alcohol or drug abuse patient.[facility] the event this information is protected by the Federal Confidentiality of Alcohol and Drug Abuse Patient Records regulations: The Federal rules restrict any use of the information to criminally investigate or prosecute any alcohol or drug abuse patient.[facility] the event this information is protected by the Federal Confidentiality of Alcohol and Drug Abuse Patient Records regulations: The Federal rules restrict any use of the information to criminally investigate or prosecute any alcohol or drug abuse patient.[facility] the event this information is protected by the Federal Confidentiality of Alcohol and Drug Abuse Patient Records regulations: The Federal rules restrict any use of the information to criminally investigate or prosecute any alcohol or drug abuse patient.[facility] the event this information is protected by the Federal Confidentiality of Alcohol and Drug Abuse Patient Records regulations: The Federal rules restrict any use of the information to criminally investigate or prosecute any alcohol or drug abuse patient.[facility] the event this information is protected by the Federal Confidentiality of Alcohol and Drug Abuse Patient Records regulations: The Federal rules restrict any use of the information to criminally investigate or prosecute any alcohol or drug abuse patient.[facility] the event this information is protected by the Federal Confidentiality of Alcohol and Drug Abuse Patient Records regulations: The Federal rules restrict any use of the information to criminally investigate or prosecute any alcohol or drug abuse patient.[facility] the event this information is protected by the Federal Confidentiality of Alcohol and Drug Abuse Patient Records regulations: The Federal rules restrict any use of the information to criminally investigate or prosecute any alcohol or drug abuse patient.[facility] Hospital[facility] the event this information is protected by the Federal Confidentiality of Alcohol and Drug Abuse Patient Records regulations: The Federal rules restrict any use of the information to criminally investigate or prosecute any alcohol or drug abuse patient.[facility] Hospital[facility] the event this information is protected by the Federal Confidentiality of Alcohol and Drug Abuse Patient Records regulations: The Federal rules restrict any use of the information to criminally investigate or prosecute any alcohol or drug abuse patient.[facility] Reason for Visit (unrecogniz ed section and content) Specialty Diagnoses / Procedures Referred By Contac t Referred To Contact HEADACHE Diagnoses Chronic migraine without aura, intractable, without status migrainosus Procedures BOTULINUM TOXIN A PER 1 UNIT CHEMODERVATE FACIAL/TRIGEM/CERV MUSC MIGRAINE Renewal due 06/15/2022 Botox 200 units every 12 weeks for 1 year through [facility] buy and bill. Preempt protocol J0585 Procedure -20025 chemodervate facial/trigem/cerv musc migraine Carolina Juarez, FILLING SEPARATOR.WEB PAGE DEVELOPER [address] [place] [address] Neur Headache [address] [place] [address] Referral ID Status Reason Start Date Expiration Date V isits Requested Visits Authorized [id number] Authorized 07/14/2022 05/14/2023 99 99 Reason Comments Neurotoxin Injection Specialty Diagnoses / Procedures Referred By Contac t Referred To Contact Neurology / HEADACHE Diagnoses Chronic migraine without aura, intractable, without status migrainosus G43.719 Procedures CHEMODERVATE FACIAL/TRIGEM/CERV MUSC MIGRAINE BOTULINUM TOXIN A PER 1 UNIT Botox 200 units every 90 days for 1 year through F buy and bill Preempt protocol [id number] Procedure -[id number] chemodervate facial/trigem/cerv musc migraine Carolina Juarez, FILLING SEPARATOR.WEB PAGE DEVELOPER [address] [place] [address] Carolina Juarez, FILLING SEPARATOR.WEB PAGE DEVELOPER [address] [place] [address] Referral ID Status Reason Start Date Expiration Date V isits Requested Visits Authorized [id number] Authorized 06/17/2021 05/14/2022 4 4 Reason Onset Date Comments Refill Request 04/09/2022 Reason Comments Refill Request Referral ID Status Reason Start Date Expiration Date Visits Re quested Visits Authorized [id number] Closed 06/17/2021 05/14/2022 4 4 Reason Comments Referral Request Reason Comments Insurance Authorization [facility] Reason Comments Cough ST, chest congestion , fever, REHMAN x3 weeks Reason Comments Urinary Frequency Frequency and burnin g x 5 days Reason Comments Results Care Teams (unrecognized sec tion and content) 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 Relationship Specialty Start Date End Date Ashley Mari MD [address] [place] [address] PCP - General Internal Medicine 03/14/17 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 Relationship Specialty Start Date End Date Ashley Mari MD [address] [place], [place] [id number] PCP - General Internal Medicine 03/14/17 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 Relationship Specialty Start Date End Date Ashley Mari MD [address] [place], [place] [id number] PCP - General Internal Medicine 03/14/17 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 Relationship Specialty Start Date End Date Ashley Mari MD [address] [place], [place] [id number] PCP - General Internal Medicine 03/14/17 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 Relationship Specialty Start Date End Date Harsha Hernández MD [address] [place] [address] PCP - General Family Medicine 08/26/22 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 Relationship Specialty Start Date End Date Harsha Hernández MD [address] [place] [address] PCP - General Family Medicine 08/26/22 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 [facility] [employer] [facility]. provides no warranty or guarantee of the accuracy or completeness of information in this document.
== END | disposition home or self-care (01) ==
PROVIDERS: PCP Family Medicine; Referring Provider Surgery; Visit Provider Surgery
DX: N63.20 Unspecified lump in the left breast, unspecified quadrant (principal); R59.0 Localized enlarged lymph nodes
CPT/HCPCS: 76642

== ENCOUNTER → 2023-07-18 | Outpatient (CLI) | payer BC, SELFPAY ==
--- NOTE | 2023-07-18 | IMM_PTH ---
PATHOLOGY RESULTS PATIENT: MARY ANN SHRESTHA LOC: [facility] U#:[id number] AGE/SX: 42/F ROOM: RE07/18/[address]: Dr. Queenie Banerjee MD : 1980 BED: DIS: 07/18/2023 SPEC #: [id number] RECD: 07/19/23 14:15 STATUS: SALLY REQ #: [id number] MARILIA: 07/18/23 00:[address]: Queenie Banerjee DEPT: IMMUNOHISTOCHEMISTRY RECD BY: Cecelia Li ENTERED: 07/19/23 14:16 SP TYPE: IMMUNO OTHR DR: Dr. Mynor Hernández MD Tissues: Left breast, NOS Procedures: CALPONIN-1 (add) CK5-6 (add) CK8 (add) E-CAD (add) HER2 EVELIO (add) KI-67 (add) P53 (add) NE (add) P40 (add) ER (initial) PHYSICIAN & [address] [address] SPECIMEN INFORMATION: Tissue Source: Left breast Clinical Info: Left breast nodule Specimen Number: [id number] #10 CPT code: 63614, 59938 x6, 79970 x3 METHODOLOGY: Deparaffinized sections of prefer/formalin-fixed tissue or PAP/DQ stained slides are incubated with monoclonal/polyclonal antibodies/oligonucleotide probes. Localization is made via biotin free immunoperoxidase method. Appropriate controls are performed and reacted as expected. Results on target cell population are indicated in the following table: RESULTS: ANTIBODY / CLONE RESULT E-Cad (ECH-6) positive CK8 (50vsbdS14) positive Calponin-1 (DE080Q) negative CK5-6 (D5 & 1684) negative P40 (BC28) negative P53 (DO-7) positive, focal (wild type pattern) Ki-67 (30-9) positive, low, ~20% MORPHOMETRIC ANALYSIS ER (clone 6F11) >95%, strong intensity NE (clone 16/1E2) >95%, strong intensity Her-2Neu (clone CB11) 0 The prognostic test for HER2 is performed on formalin-fixed paraffin embedded tissue. A 3+ (positive) staining pattern is defined as intense, homogeneous, complete, circumferential membranous staining in >10% of contiguous tumor cells. A similar weak (2+) staining pattern is interpreted as equivocal. BEN follow-up testing is recommended for all equivocal cases. Positivity/negativity for ER/NE is reported if > or < 1% of the tumor cells are immuno- reactive, respectively. The ASCO/CAP criteria is used for scoring. Reference: Journal of Clinical Oncology, 2013; 31:3322-5016 & 2010; 16:5434-4909. Ischemic time: Less than one hour. Duration of fixation: 11.5 Hrs; Sample Adequate: Yes. These assays have not been validated on decalcified tissues. Results should be interpreted with caution given the likelihood of false negativity on decalcified specimens or fixation greater than 72 hours. Alternative testing methods (FISH/dualISH for Her2; gene expression for ER) are recommended, if applicable. Please notify the laboratory if additional testing is required. These tests were developed and their performance characteristics determined by [facility]. They may not have been cleared or approved by the U.S. Food and Drug Administration. The FDA has determined that such clearance or approval is not necessary. The above immunohistochemical/dualISH markers are ordered and reviewed by the Pathologist. INTERPRETATION: Left breast tissue, 11 o'clock, 3.0 cm from nipple, core biopsy: Invasive ductal carcinoma, nuclear grade 2. Positive for estrogen receptors (favorable prognostic indicator). Positive for progesterone receptors (favorable prognostic indicator). Negative for overexpression of QCT8mic. SJ:estefania 07/20/2023
--- NOTE | 2023-07-18 08:00 | BRBX_PTH ---
PATHOLOGY RESULTS PATIENT: MARY ANN SHRESTHA LOC: [facility] U#:[id number] AGE/SX: 42/F ROOM: RE07/18/[address]: Dr. Queenie Banerjee MD : 1980 BED: DIS: 07/18/2023 SPEC #: [id number] RECD: 07/18/23 11:31 STATUS: SALLY MAYTE #: [id number] MARILIA: 07/18/23 08:[address]: Queenie Banerjee DEPT: SURGICAL PATHOLOGY RECD BY: Renae Gunter ENTERED: 07/18/23 11:32 SP TYPE: BREAST BX OTHR DR: Dr. Mynor Hernández MD Tissues: Left breast, NOS Procedures: Surgery Specimen Level IV HEADER OPERATION: Biopsy of left breast nodule PRE-OP DIAGNOSIS: Left breast nodule TISSUE SUBMITTED: Left breast tissue 11 o'clock, 3.0 cm MICROSCOPIC DIAGNOSIS Left breast tissue, 11 o'clock, 3.0 cm from nipple, core biopsy: Invasive ductal carcinoma, nuclear grade 2 (1.0 cm in greatest length). See comment. SETH:estefania 07/19/2023 COMMENT ER/NM/Ukh6rcl studies are being performed on sections of tumor and the results from this study will be reported separately ([id number]). Immunohistochemistry ([id number]) supports the above diagnosis. Please make reference to previous specimen ([id number]), left axillary lymph node, core biopsy with diagnosis of suggestive of inflamed and infarcted papillary lesion. This case was discussed with Dr. Banerjee on 07/19/2023. Case has been reviewed in consultation with Dr. Bo who concurs with the above diagnosis. IDC:AM MICROSCOPIC DESCRIPTION Slides are reviewed. GROSS DESCRIPTION Received in fixative is one container labeled with the patient's name and designated left breast nodule. The specimen consists of multiple elongated fragments of paul-yellow fibroadipose tissue that in aggregate measure 1.5 x 0.3 x 0.1 cm. The entire specimen is submitted in one cassette. / SETH:estefania 07/18/2023 TC:0 Ischemic Time: 1 minute Fixation Time: 11.5 hours CPT: 20846
== END | disposition home or self-care (01) ==
LOC: LABSPEC 08:42
PROVIDERS: PCP Family Medicine; Referring Provider Surgery; Visit Provider Surgery
DX: C50.412 Malignant neoplasm of upper-outer quadrant of left female breast (principal); Z17.0 Estrogen receptor positive status [ER+]
CPT/HCPCS: 88305; 88341; 88342

== ENCOUNTER → 2023-07-25 | Outpatient (CLI) | payer BC, SELFPAY ==
--- NOTE | 2023-07-25 12:00 | PET_ITS ---
EXAMINATION: FDG PET/CT ? INDICATIONS: 42-year-old female with a reported history of carcinoma of the breast, presenting for initial staging examination. ? COMPARISON EXAMINATION: None available. ? INDEX LESION SIZE SUV INTERPRETATION Left breast 7.1 mm 3.2 Fulfills quantitative criteria for viable neoplasm ? Left axilla 31.1 mm 3.4 Fulfills quantitative criteria for viable neoplasm ? Right breast ? 1.2 max Quantitative criteria for viable neoplasm are not fulfilled ? ? TECHNIQUE: Following the intravenous administration of 11.2 mCi of F-18 deoxyglucose via the right antecubital fossa, multiplanar image acquisitions of the head, neck, chest, abdomen and pelvis to the level of the midthigh, obtained at one-hour post radiopharmaceutical administration contemporaneously interpreted with the current CT of the chest, abdomen and pelvis dated 07/25/2023 via coregistration reveal: ? SERUM GLUCOSE LEVEL:? 98 mg/dL? HEIGHT:?? 63 inches WEIGHT:?? 192 pounds ? FINDINGS: ? HEAD/NECK:? There is no evidence of abnormal increased glucose metabolism in the pharyngeal mucosal space, parapharyngeal space, oropharynx, bilateral-lateral and anterior neck, hypopharynx and distribution of the larynx. ? The visualized portion of the cerebral cortical-subcortical structures demonstrate symmetric and preserved glucose metabolism. ? CHEST:? Facilitated uptake is noted in the left breast, generating a calculated standard uptake value of 3.2. The maximum axial diameter of the metabolic, morphologic abnormality is 7.1 mm. Focal increased radiopharmaceutical concentration is defined in the left axillary region involving level II. The calculated maximum standard uptake value is 3.4. The largest corresponding soft tissue density demonstrates a maximal axial diameter of 31.1 mm. A soft tissue density is defined in the right breast, demonstrating a calculated standard uptake value of 1.2. Quantitative criteria for neoplasia are not fulfilled. There is visualized radiopharmaceutical concentration noted in the left ventricular myocardium, consistent with the fed state. CT of the chest demonstrates the following anatomic characteristics: Left and right axillary soft tissue densities with fatty hilus are ametabolic. Atherosclerotic calcification is defined in the thoracic aorta without evidence of dilatation, aneurysm formation. Coronary arterial calcification is observed. ? ABDOMEN/PELVIS:? Normal physiologic distribution of the radiopharmaceutical is identified in the hepatic (3.3) and splenic parenchyma, both renal units, urinary bladder, and visualized intestinal tract. Diffuse intestinal tract is identified in all four quadrants of the abdomen and pelvis. ? CT of the abdomen and pelvis is remarkable for the following: Atherosclerotic calcification is defined in the abdominal aorta without evidence of dilatation, aneurysm formation. Pelvic arterial calcification is observed. The uterus is anteflexed. Calcification is noted in the region of the left adnexa. An intrauterine contraceptive device is demonstrated. Right and left inguinal soft tissue densities are ametabolic. ? SKELETAL:? Degenerative changes defined in the thoracic and lumbar spine demonstrate no evidence of increased glucose metabolism. There are no sclerotic, mixed sclerotic-lytic, or primarily lytic changes defined in the axial skeletal structures with evidence of increased FDG uptake. ? PET/PET/CT Tumor Base -Thigh Init IMPRESSION: 1. ABNORMAL EXAMINATION INDICATIVE OF MALIGNANT-VIABLE NEOPLASM. 2. Increased radiopharmaceutical concentration defined in the left breast fulfills quantitative criteria for malignant transformation. 3. Enhanced tracer uptake multifocally apparent in the left axilla fulfills quantitative criteria for viable local regional metastatic disease. 4. Increased FDG concentration manifest in the right breast does not fulfill quantitative criteria for malignant transformation. Electronic Signature Rudolph Bermudez D.O. Accurate Quantification of SUVs for this report are calculated using the exclusive [employer]. ([place].S. Patent No. [phone] [phone] [place] patent [phone]). Standardization and correction of the FDG SUV metric via [employer] technology allow for vendor non-specific objective quantitative examination comparison and optimization of the sensitivity and specificity of the FDG PET-CT examination. . [email or web address] Electronically Signed: Rudolph Bermudez DO at 23:46 EDT ,
--- OUTSIDE RECORDS SUMMARY | 2023-07-25 15:42 | XMS RPT_ITS | CCD ---
Author Name Unknown Address [address] [place] [address] Organization [facility] Care Team Providers Care Fire Prevention Inspector Name Role Phone Ashley Mari MD Primary [...] 160 cm Carolina Juarez APRN.CNP Work Phone: [facility] 03-23-2023 09:33-0500 Body weight 97.52 kg Carolina Juarez APRN.CNP Work Phone: [facility] 03-23-2023 09:33-0500 Diastolic blood pressure 84 mm[Hg] Craolina Juarez APRN.CNP Work Phone: [facility] 03-23-2023 09:33-0500 Heart rate 75 /min Carolina Juarez SITE DAMAGE PREVENTION TECHNICIAN.FELLED SEAM OPERATOR Work Phone: [facility] 03-23-2023 09:33-0500 Systolic blood pressure 122 mm[Hg] Carolina Juarez SITE DAMAGE PREVENTION TECHNICIAN.FELLED SEAM OPERATOR Work Phone: [facility] 12-20-2022 15:01-0400 Body height 160 cm Carolina Juarez SITE DAMAGE PREVENTION TECHNICIAN.FELLED SEAM OPERATOR Work Phone: [facility] 12-20-2022 15:01-0400 Body weight 105.69 kg Carolina Juarez SITE DAMAGE PREVENTION TECHNICIAN.FELLED SEAM OPERATOR Work Phone: [facility] 12-20-2022 15:01-0400 Diastolic blood pressure 86 mm[Hg] Carolina Juarez SITE DAMAGE PREVENTION TECHNICIAN.FELLED SEAM OPERATOR Work Phone: [facility] 12-20-2022 15:01-0400 Heart rate 73 /min Carolina Juarez SITE DAMAGE PREVENTION TECHNICIAN.FELLED SEAM OPERATOR Work Phone: [facility] 12-20-2022 15:01-0400 SaO2% (BldA) [Mass fraction] 97 % Carolina Juarez SITE DAMAGE PREVENTION TECHNICIAN.FELLED SEAM OPERATOR Work Phone: [facility] 12-20-2022 15:01-0400 Systolic blood pressure 133 mm[Hg] Carolina Juarez SITE DAMAGE PREVENTION TECHNICIAN.FELLED SEAM OPERATOR Work Phone: [facility] 12-10-2022 14:42-0400 Body temperature 99.39 [degF] Alejandro Palma MD Work Phone: [facility] 12-10-2022 14:42-0400 Body weight 107.68 kg Alejandro Palma MD Work Phone: [facility] 12-10-2022 14:42-0400 Diastolic blood pressure 84 mm[Hg] Alejandro Palma MD Work Phone: [facility] 12-10-2022 14:42-0400 Heart rate 70 /min Alejandro Palma MD Work Phone: [facility] 12-10-2022 14:42-0400 Respiratory rate 16 /min Alejandro Palma MD Work Phone: [facility] 12-10-2022 14:42-0400 SaO2% (BldA) [Mass fraction] 100 % Alejandro Palma MD Work Phone: [facility] 12-10-2022 14:42-0400 Systolic blood pressure 128 mm[Hg] Alejandro Palma MD Work Phone: [facility] 08-26-2022 07:30-0400 Body temperature 98.8 [degF] Brianda Lehman SITE DAMAGE PREVENTION TECHNICIAN.FELLED SEAM OPERATOR Work Phone: [facility] 08-26-2022 07:30-0400 Body weight 114.85 kg Brianda Lehman SITE DAMAGE PREVENTION TECHNICIAN.FELLED SEAM OPERATOR Work Phone: [facility] 08-26-2022 07:30-0400 Diastolic blood pressure 88 mm[Hg] Brianda Lehman SITE DAMAGE PREVENTION TECHNICIAN.FELLED SEAM OPERATOR Work Phone: [facility] 08-26-2022 07:30-0400 Heart rate 96 /min Brianda Lehman SITE DAMAGE PREVENTION TECHNICIAN.FELLED SEAM OPERATOR Work Phone: [facility] 08-26-2022 07:30-0400 Respiratory rate 20 /min Brianda Lehman SITE DAMAGE PREVENTION TECHNICIAN.FELLED SEAM OPERATOR Work Phone: [facility] 08-26-2022 07:30-0400 SaO2% (BldA) [Mass fraction] 97 % Brianda Lehman SITE DAMAGE PREVENTION TECHNICIAN.FELLED SEAM OPERATOR Work Phone: [facility] 08-26-2022 07:30-0400 Systolic blood pressure 126 mm[Hg] Brianda Lehman SITE DAMAGE PREVENTION TECHNICIAN.FELLED SEAM OPERATOR Work Phone: [facility] 07-14-2022 11:45-0500 Body height 160 cm Carolina Juarez SITE DAMAGE PREVENTION TECHNICIAN.FELLED SEAM OPERATOR Work Phone: [facility] 07-14-2022 11:45-0500 Body weight 113.4 kg Carolina Najdovski SITE DAMAGE PREVENTION TECHNICIAN.FELLED SEAM OPERATOR Work Phone: [facility] 07-14-2022 11:45-0500 Diastolic blood pressure 82 mm[Hg] Carolina Najdovski SITE DAMAGE PREVENTION TECHNICIAN.FELLED SEAM OPERATOR Work Phone: [facility] 07-14-2022 11:45-0500 Heart rate 86 /min Carolina Najdovski SITE DAMAGE PREVENTION TECHNICIAN.FELLED SEAM OPERATOR Work Phone: [facility] 07-14-2022 11:45-0500 Systolic blood pressure 140 mm[Hg] Carolina Najdovski SITE DAMAGE PREVENTION TECHNICIAN.FELLED SEAM OPERATOR Work Phone: [facility] 04-14-2022 10:52-0500 Body height 160 cm Carolina Najdovski SITE DAMAGE PREVENTION TECHNICIAN.FELLED SEAM OPERATOR Work Phone: [facility] 04-14-2022 10:52-0500 Body weight 111.58 kg Carolina Najdovski SITE DAMAGE PREVENTION TECHNICIAN.FELLED SEAM OPERATOR Work Phone: [facility] 04-14-2022 10:52-0500 Diastolic blood pressure 76 mm[Hg] Carolina Najdovski SITE DAMAGE PREVENTION TECHNICIAN.FELLED SEAM OPERATOR Work Phone: [facility] 04-14-2022 10:52-0500 Heart rate 83 /min Carolina Najdovski SITE DAMAGE PREVENTION TECHNICIAN.FELLED SEAM OPERATOR Work Phone: [facility] 04-14-2022 10:52-0500 Systolic blood pressure 128 mm[Hg] Carolina Najdovski SITE DAMAGE PREVENTION TECHNICIAN.FELLED SEAM OPERATOR Work Phone: [facility] 10-07-2021 13:00-0400 Body weight 120.2 kg Carolina Najdovski SITE DAMAGE PREVENTION TECHNICIAN.FELLED SEAM OPERATOR Work Phone: [facility] 10-07-2021 13:00-0400 Diastolic blood pressure 82 mm[Hg] Carolina Najdovski SITE DAMAGE PREVENTION TECHNICIAN.FELLED SEAM OPERATOR Work Phone: [facility] 10-07-2021 13:00-0400 Heart rate 100 /min Carolina Najdovski SITE DAMAGE PREVENTION TECHNICIAN.FELLED SEAM OPERATOR Work Phone: [facility] 10-07-2021 13:00-0400 Systolic blood pressure 121 mm[Hg] Carolina Juarez APRN.CNP Work Phone: [facility] Encounters Encounter Date Encounter Type Care Provider Facility Start: 03-23-2023 End: 03-23-2023 ambulatory HARSHA HERNÁNDEZ Facility[facility] Start: 03-23-2023 End: 03-23-2023 Patient encounter procedure Carolina Juarez APRN.CNP Work Phone: Neurology Procedures Date Procedure Procedure Detail Performing Clinician Start: 12-10-2022 Urnls dip stick/tabl et rgnt auto w/o microscopy Sarahi Dennison PA-C Work Phone: Start: 12-31-2020 Adult depression screening assessment Carolina Juarez APRN.CNP Work Phone: Plan of Treatment Date Care Activity Detail Author Start: 01-13-2023 Influenza vaccination [facility] Start: 05-15-2022 DEPRESSION ASSESSMENT DEPRESSION ASSESSMENT [facility] Start: 05-15-2022 Urine microalbumin profile DTaP,Tdap,Td Vaccine (7 - Td or Tdap) [facility] Start: 01-13-2022 Influenza vaccination [facility] Start: 12-31-2021 Adult depression screening assessment DEPRESSION SCREENING [facility] Start: 05-15-2021 DEPRESSION ASSESSMENT DEPRESSION ASSESSMENT [facility] Start: 2020 Mammography [facility] Start: 2010 HPV TESTING HPV TESTING [facility] Start: 2001 PAP TESTING PAP TESTING [facility] Start: 1998 HEPATITIS C SCREENING HEPATITIS C SCREENING [facility] Start: 1998 HIV SCREENING HIV SCREENING [facility] Start: 08-18-1991 Urine microalbumin profile DTAP,TDAP,TD (6 - Tdap) [facility] Start: 1985 COVID-19 VACCINE (#1) COVID-19 VACCINE (#1) [facility] Start: 02-16-1981 COVID-19 VACCINE (#1) COVID-19 VACCINE (#1) [facility] Start: 1980 HEPATITIS B (1 of 3 - 3-dose series) HEPATITIS B (1 of 3 - 3-dose series) [facility] Start: 1980 Hepatitis B Vaccine (1 of 3 - 3-dose series) Hepatitis B Vaccine (1 of 3 - 3-dose series) [facility] Bacteria identified in Urine by Culture URINE CULTURE Microbiology Routine Urinary frequency Ordered: 12/10/2022 [facility] Work Phone: Immunizations Immunization Date Immunization Notes Care Provider Fa cili 02-15-2016 influenza, seasonal, injectable Carolina Nademetrisovski SITE DAMAGE PREVENTION TECHNICIAN.FELLED SEAM OPERATOR Work Phone: [facility] 02-15-2016 influenza virus vacc ine, unspecified formulation Carolina Najdovski SITE DAMAGE PREVENTION TECHNICIAN.FELLED SEAM OPERATOR Work Phone: [facility] 06-18-1992 measles, mumps and rubella virus vaccine Carolina Najdovski SITE DAMAGE PREVENTION TECHNICIAN.FELLED SEAM OPERATOR Work Phone: [facility] 09-18-1985 diphtheria, tetanus toxoids and acellular pertussis vaccine Carolina Najdovski SITE DAMAGE PREVENTION TECHNICIAN.FELLED SEAM OPERATOR Work Phone: [facility] 09-18-1985 trivalent poliovirus vaccine, live, oral Carolina Najdovski SITE DAMAGE PREVENTION TECHNICIAN.FELLED SEAM OPERATOR Work Phone: [facility] 08-18-1982 diphtheria, tetanus toxoids and acellular pertussis vaccine Carolina Najdovski SITE DAMAGE PREVENTION TECHNICIAN.FELLED SEAM OPERATOR Work Phone: [facility] 08-18-1982 measles, mumps and rubella virus vaccine Carolina Najdovski SITE DAMAGE PREVENTION TECHNICIAN.FELLED SEAM OPERATOR Work Phone: [facility] 02-12-1981 diphtheria, tetanus toxoids and acellular pertussis vaccine Carolina Najdovski SITE DAMAGE PREVENTION TECHNICIAN.FELLED SEAM OPERATOR Work Phone: [facility] 02-12-1981 trivalent poliovirus vaccine, live, oral Carolina Najdovski SITE DAMAGE PREVENTION TECHNICIAN.FELLED SEAM OPERATOR Work Phone: [facility] 1980 diphtheria, tetanus toxoids and acellular pertussis vaccine Carolina Najdovski SITE DAMAGE PREVENTION TECHNICIAN.FELLED SEAM OPERATOR Work Phone: [facility] 1980 trivalent poliovirus vaccine, live, oral Carolina Ann SITE DAMAGE PREVENTION TECHNICIAN.FELLED SEAM OPERATOR Work Phone: [facility] 1980 diphtheria, tetanus toxoids and acellular pertussis vaccine Carolina Pachecofrancisca SITE DAMAGE PREVENTION TECHNICIAN.FELLED SEAM OPERATOR Work Phone: [facility] 1980 trivalent poliovirus vaccine, live, oral Carolina Pachecofrancisca SITE DAMAGE PREVENTION TECHNICIAN.FELLED SEAM OPERATOR Work Phone: [facility] Payers Date Payer Category Payer Unknown [employer] PPO [id number] 2021-Present [phone] [address] [place] [id number] PPO [id number] 2021 Unknown [id number] 2018 Unknown [employer] CARD PPO OOS [id number] 2018-Present [phone] [address] [place] [address] PPO [id number] Social History Date Type Detail Facility Start: 09-14-2010 End: 02-17-2022 Tobacco smoking status NHIS Ex-smoker [facility] End: 05-14-2006 History of tobacco use Current smoker [facility] Start: 09-14-2010 End: 10-19-2022 Cigarettes smoked current (pack per day) - Reported 0.5 [facility] Start: 09-14-2010 End: 02-17-2022 Tobacco use and exposure Smokeless tobacco non-user [facility] Start: 10-07-2021 End: 03-23-2023 Alcohol intake Current drinker of alcohol (finding) [facility] Start: 09-14-2010 History SDOH Alcohol Comment occasional [facility] Start: 1980 Sex Assigned At Not on file [facility] End: 05-14-2006 History of tobacco use Cigarette Smoker [facility] Start: 10-19-2022 End: 12-10-2022 Tobacco use panel [facility] Adult Depression Screening Assessment 0 [facility] Clinical Notes 10-07-2021 to 03-23-2023 Patient InstructionsCarolina Juarez APRN.FELLED SEAM OPERATOR - 03/23/2023 9:30 AM ESTPatient InstructionsCarolina Juarez APRN.CNP - 12/20/2022 3:30 PM EDTMAlejandro Enriquez MD - 12/10/2022 2:47 PM EDT Note Date & Type Note Facility 03-23-2023 Note HNO ID: [id number] Author: Carolina Juarez APRN.CNP Service: ? Author [...] for migraine Informed Consent Consent Obtained: Written [place] Protocol A moment to CARE was completed SIGN IN Personnel directly involved with the procedure wore the appropriate PPE Special Equipment: N/A Patient/Surrogate Stated/Verified: Patient name, Date of , Relevant allergies and Intended (more content not included)... [facility] 03-23-2023 Instructions Carolina Juarez APRN.[facility] - 03/23/2023 9:37 AM EST AFTER VISIT [...] next Botox Injection documented in this encounter [facility] 03-23-2023 History of Presen t illness [...] for migraine Informed Consent Consent Obtained: Written [place] Protocol A moment to CARE was completed [...] applicable Written Consent Obtained: Written LOT #: [id number] Expiration Date: Month: 3 Year: 2025 Second vial: LOT #: [id number] Expiration Date: Month: 3 Year: 2025 Injection Sites Left (Units) Left (Sites) Right (Units) Right (Sites) TOTAL (Units) Dependency Case Manager 5 1 5 1 10 Procerus Units: [...] Goody s) Ibuprofen (Advil, Motrin) Carolina Juarez APRN.FELLED SEAM OPERATOR documented in this encounter [facility] 12-20-2022 Note HNO ID: [id number] Author: Carolina Juarez APRN.FELLED SEAM OPERATOR Service: ? Author Type: Nurse Practitioner Type: [...] for migraine Informed Consent Consent Obtained: Written [place] Protocol A moment to CARE was completed SIGN IN Personnel directly involved with the procedure wore the appropriate PPE Special Equipment: N/A Patient/Surrogate Stated/Verified: Patient name, Date of , Relevant allergies and Intended procedure TIME OUT Intended patient and procedure match the source document(s) Consent documented and matches the intended procedure (more content not included)... [facility] 12-20-2022 Instructions Carolina Juarez APRN.MARCELLUS - [...] next Botox Injection documented in this encounter [facility] 12-20-2022 History of Presen t illness [...] for migraine Informed Consent Consent Obtained: Written [place] Protocol A moment to CARE was completed [...] applicable Written Consent Obtained: Written LOT #: [id number] Expiration Date: Month: Year: 2024 Second vial: LOT #: [id number] Expiration Date: Month: Year: 2024 Injection Sites Left (Units) Left (Sites) Right (Units) Right (Sites) TOTAL (Units) Dependency Case Manager 5 1 5 1 10 Procerus Units: [...] Carolina Juarez APRN.MARCELLUS documented in this encounter [facility] 12-12-2022 Miscellaneous Notes Patient given results and verbalized understanding of instructions given. Laure Rutherford No growth on urine culture. Patient should follow-up with primary care provider to make sure the blood is cleared from her urine. If patient symptoms are worsening she should also follow-up with primary care. documented in this encounter [facility] 12-10-2022 Note HNO ID: [id number] Author: Alejandro Palma MD Service: ? Author [...] 100 MG ORAL CAP Alejandro Palma MD [facility] 12-10-2022 History of Presen t illness [...] Alejandro Palma MD documented in this encounter [facility] 08-26-2022 Note HNO ID: [id number] Author: Brianda Lehman APRN.FELLED SEAM OPERATOR Service: ? Author Type: Nurse Practitioner Type: [...] history is provided by the patient. No speech and language assistant was used. Cough This is [...] murmur heard. No (more content not included)... [facility] 08-26-2022 History of Presen t illness Narrative This note was created using [employer]. Subjective Dona Saunders is a 42 year [...] history is provided by the patient. No speech and language assistant was used. Cough This is [...] if symptoms persist or worsen. Brianda Lehman APRN.FELLED SEAM OPERATOR documented in this encounter [facility] 07-21-2022 Miscellaneous Notes PA submitted via covermymeds. Nurtec Dona Sheryl Saunders ([place]: [id number]) This request has been approved. Outcome Approved today CaseId:[id number];Status:Approved; Review Type:Prior Auth;Coverage Start Date:06/21/2022; Coverage End Date:07/21/2023; Drug Nurtec 75MG dispersible tablets Joel Doyle RN July 21, 2022 9:02 AM Prior Authorization for Medications Requested by (MyChart, Pharmacy, Patient Call, Fax) : Fax Pharmacy Name: [facility] Phone # : [phone] Name of Medication : Nurtec ODT Dose : 75mg If renewal, auth date expiration: NA Prescribing Provider: Ann Last OV: 07/14/22 with Ann Insurance Provider : Joya/ [employer] [place] Is insurance card scanned in, including Rx info? Yes Rx ID number: [id number] Rx BIN: [id number] Rx PCN: NA Rx Grp: [id number] Insurance CoverMyMeds [place]: [id number] E-PA? Yes documented in this encounter [facility] 07-14-2022 Instructions Carolina Juarez APRN.CNP - [...] next Botox Injection documented in this encounter [facility] 07-14-2022 Note HNO ID: [id number] Author: Carolina Juarez APRN.MARCELLUS Service: ? Author [...] 113.4 kg (2 (more content not included)... [facility] 07-14-2022 History of Presen t illness [...] for migraine Informed Consent Consent Obtained: Written [place] Protocol A moment to CARE was completed [...] applicable Written Consent Obtained: Written LOT #: [id number] Expiration Date: Month: Year: 2024 Second vial: LOT #: [id number] Expiration Date: Month: Year: 2024 Injection Sites Left (Units) Left (Sites) Right (Units) Right (Sites) TOTAL (Units) Dependency Case Manager 5 1 5 1 10 Procerus Units: [...] Goody s) Ibuprofen (Advil, Motrin) Carolina Juarez APRN.FELLED SEAM OPERATOR documented in this encounter [facility] 04-14-2022 Miscellaneous Notes Botox referral sent to pharmacy Joel Doyle RN April 14, 2022 2:50 PM documented in this encounter [facility] 04-14-2022 Note HNO ID: [id number] Author: Carolina Juarez APRN.MARCELLUS Service: ? Author [...] for migraine Informed Consent Consent Obtained: Written [place] Protocol A moment to CARE was completed [...] applicable Written Consent Obtained: Written LOT #: [id number] Expiration Date: Month: Year: 2023 Second vial: LOT #: [id number] Expiration Date: Month: 4 Year: 2023 Injection Sites Left (Units) Left (Sites) Right (Units) Right (Sites) TOTAL (Units) Dependency Case Manager 5 1 5 1 10 Procerus Units: [...] (Lexapro) Antiemetics Promethazine (more content not included)... [facility] 04-14-2022 History of Presen t illness [...] for migraine Informed Consent Consent Obtained: Written [place] Protocol A moment to CARE was completed [...] applicable Written Consent Obtained: Written LOT #: [id number] Expiration Date: Month: Year: 2023 Second vial: LOT #: [id number] Expiration Date: Month: Year: 2023 Injection Sites Left (Units) Left (Sites) Right (Units) Right (Sites) TOTAL (Units) Dependency Case Manager 5 1 5 1 10 Procerus Units: [...] Goody s) Ibuprofen (Advil, Motrin) Carolina Juarez APRN.FELLED SEAM OPERATOR documented in this encounter [facility] 04-14-2022 Instructions Carolina Juarez APRN.FELLED SEAM OPERATOR - 04/14/2022 10:55 AM EST AFTER VISIT [...] next Botox Injection documented in this encounter [facility] 04-11-2022 Miscellaneous Notes Physician: Ann Call [...] Name: Rudy Sanchez documented in this encounter [facility] 10-07-2021 Instructions Carolina Juarez APRN.FELLED SEAM OPERATOR - 10/07/2021 1:04 PM EDT AFTER VISIT [...] next Botox Injection documented in this encounter [facility] 10-07-2021 History of Presen t illness [...] for migraine Informed Consent Consent Obtained: Written [place] Protocol A moment to CARE was completed [...] applicable Written Consent Obtained: Written LOT #: [id number] Expiration Date: Month: Year: 2023 Second vial: LOT #: [id number] Expiration Date: Month: Year: 2023 Injection Sites Left (Units) Left (Sites) Right (Units) Right (Sites) TOTAL (Units) Dependency Case Manager 5 1 5 1 10 Procerus Units: [...] Goody s) Ibuprofen (Advil, Motrin) Carolina Juarez APRN.FELLED SEAM OPERATOR documented in this encounter [facility] Diagnosis Chronic migraine without aura, intractable, without status migrainosus- Primary documented in this encounter [facility] note* Diagnosis Chronic migraine without aura, intractable, without status migrainosus- Primary Nausea and vomiting, unspecified vomiting type documented in this encounter [facility] note* Diagnosis Rhinosinusitis- Primary Unspecified sinusitis (chronic) documented in this encounter [facility] note* Diagnosis Urinary frequency- Primary documented in this encounter [facility] note* Diagnosis Chronic migraine without aura, intractable, without status migrainosus- Primary documented in this encounter [facility] note* Diagnosis Chronic migraine without aura, intractable, without status migrainosus- Primary documented in this encounter [facility] Medications Administered Section Inactive Administered Medications [...] or prosecute any alcohol or drug abuse patient.[facility] the event this information is protected by the Federal Confidentiality of Alcohol and Drug Abuse Patient Records regulations: The Federal rules restrict any use of the information to criminally investigate or prosecute any alcohol or drug abuse patient.[facility] Hospital[facility] the event this information is protected by the Federal Confidentiality of Alcohol and Drug Abuse Patient Records regulations: The Federal rules restrict any use of the information to criminally investigate or prosecute any alcohol or drug abuse patient.[facility] Hospital[facility] the event this information is protected by the Federal Confidentiality of Alcohol and Drug Abuse Patient Records regulations: The Federal rules restrict any use of the information to criminally investigate or prosecute any alcohol or drug abuse patient.[facility] Hospital[facility] the event this information is protected by the Federal Confidentiality of Alcohol and Drug Abuse Patient Records regulations: The Federal rules restrict any use of the information to criminally investigate or prosecute any alcohol or drug abuse patient.[facility] HospitalIn the event this information is protected by the Federal Confidentiality of Alcohol and Drug Abuse Patient Records regulations: The Federal rules restrict any use of the information to criminally investigate or prosecute any alcohol or drug abuse patient.[facility] HospitalIn the event this information is protected by the Federal Confidentiality of Alcohol and Drug Abuse Patient Records regulations: The Federal rules restrict any use of the information to criminally investigate or prosecute any alcohol or drug abuse patient.[facility] Hospital[facility] the event this information is protected by the Federal Confidentiality of Alcohol and Drug Abuse Patient Records regulations: The Federal rules restrict any use of the information to criminally investigate or prosecute any alcohol or drug abuse patient.[facility] HospitalIn the event this information is protected by the Federal Confidentiality of Alcohol and Drug Abuse Patient Records regulations: The Federal rules restrict any use of the information to criminally investigate or prosecute any alcohol or drug abuse patient.[facility] HospitalIn the event this information is protected by the Federal Confidentiality of Alcohol and Drug Abuse Patient Records regulations: The Federal rules restrict any use of the information to criminally investigate or prosecute any alcohol or drug abuse patient.[facility] HospitalIn the event this information is protected by the Federal Confidentiality of Alcohol and Drug Abuse Patient Records regulations: The Federal rules restrict any use of the information to criminally investigate or prosecute any alcohol or drug abuse patient.[facility] HospitalIn the event this information is protected by the Federal Confidentiality of Alcohol and Drug Abuse Patient Records regulations: The Federal rules restrict any use of the information to criminally investigate or prosecute any alcohol or drug abuse patient.[facility] Reason for Visit (unrecogniz ed section and content) Specialty Diagnoses / Procedures Referred By Contac t Referred To Contact [facility] Diagnoses Chronic migraine without aura, intractable, without status migrainosus Procedures BOTULINUM TOXIN A PER 1 UNIT CHEMODERVATE FACIAL/TRIGEM/CERV MUSC MIGRAINE Renewal due 06/15/2022 Botox 200 units every 12 weeks for 1 year through [facility] buy and bill. Preempt protocol [id number] Procedure -56177 chemodervate facial/trigem/cerv musc migraine Carolina Juarez, SITE DAMAGE PREVENTION TECHNICIAN.FELLED SEAM OPERATOR [address] [place] [address] Neur Headache Main [address] [place] [address] Referral ID Status Reason Start Date Expiration Date V isits Requested Visits Authorized [id number] Authorized 07/14/2022 05/14/2023 99 99 Reason Comments Neurotoxin Injection Specialty Diagnoses / Procedures Referred By Contac t Referred To Contact Neurology / HEADACHE Diagnoses Chronic migraine without aura, intractable, without status migrainosus G43.719 Procedures CHEMODERVATE FACIAL/TRIGEM/CERV MUSC MIGRAINE BOTULINUM TOXIN A PER 1 UNIT Botox 200 units every 90 days for 1 year through F buy and bill Preempt protocol [id number] Procedure -22056 chemodervate facial/trigem/cerv musc migraine Carolina Juarez, SITE DAMAGE PREVENTION TECHNICIAN.FELLED SEAM OPERATOR [address] [place] [address] Carolina Juarez, SITE DAMAGE PREVENTION TECHNICIAN.FELLED SEAM OPERATOR [address] [place] [address] Referral ID Status Reason Start Date Expiration Date V isits Requested Visits Authorized [id number] Authorized 06/17/2021 05/14/2022 4 4 Reason Onset Date Comments Refill Request 04/09/2022 Reason Comments Refill Request Referral ID Status Reason Start Date Expiration Date Visits Re quested Visits Authorized [id number] Closed 06/17/2021 05/14/2022 4 4 Reason Comments Referral Request Reason Comments Insurance Authorization [facility] Reason Comments Cough ST, chest congestion , fever, REHMAN x3 weeks Reason Comments Urinary Frequency Frequency and burnin g x 5 days Reason Comments Results Care Teams (unrecognized sec tion and content) Fire Prevention Inspector Relationship Specialty Start Date End Date Ashley Mari MD [address] [place] [address] PCP - General Internal Medicine 03/14/17 Fire Prevention Inspector Relationship Specialty Start Date End Date Ashley Mari MD [address] [place], [place] [address] PCP - General Internal Medicine 03/14/17 Fire Prevention Inspector Relationship Specialty Start Date End Date Ashley Mari MD [address] [place], [place] [id number] PCP - General Internal Medicine 03/14/17 Fire Prevention Inspector Relationship Specialty Start Date End Date Ashley Mari MD [address] [place], [place] [id number] PCP - General Internal Medicine 03/14/17 Fire Prevention Inspector Relationship Specialty Start Date End Date Harsha Hernández MD [address] [place] [address] PCP - General Family Medicine 08/26/22 Fire Prevention Inspector Relationship Specialty Start Date End Date Harsha Hernández MD [address] [place] [address] PCP - General Family Medicine 08/26/22 Fire Prevention Inspector Relationship Specialty Start Date End Date Harsha Hernández MD [address] [place] [address] PCP - General Family Medicine 08/26/22 Fire Prevention Inspector Relationship Specialty Start Date End Date Harsha Hernández MD [address] [place] [address] PCP - General Family Medicine 08/26/22 Fire Prevention Inspector Relationship Specialty Start Date End Date Harsha Hernández MD [address] [place] [address] PCP - General Family Medicine 08/26/22 INFORMATION [...] BE BASED ON THE PRIMARY CLINICAL RECORDS. [facility]. provides no warranty or guarantee of the accuracy or completeness of information in this document.
== END | disposition home or self-care (01) ==
LOC: ONC 08:18
PROVIDERS: PCP Family Medicine; Referring Provider Surgery; Visit Provider Surgery
DX: D05.12 Intraductal carcinoma in situ of left breast (principal)
CPT/HCPCS: 78815; A9552

== ENCOUNTER 2023-08-21 15:35 | Observation (INO) | payer BC, SELFPAY ==
[2023-08-21] VITALS (11 sets, daily range): BP systolic 103–145; BP diastolic 66–95; PULSE 50–87; RESP 16–18; TEMP 36.3–37.1; O2SAT 94–100; BMI 35.4
--- NOTE | 2023-08-21 | IMM_PTH ---
PATIENT: MARY ANN SHRESTHA LOC: MS3 U#:[id number] AGE/SX: 43/F ROOM: CA312 RE08/21/[address]: Dr. Queenie Banerjee MD : 1980 BED: 1 DIS: 08/22/2023 SPEC #: [id number] RECD: 08/25/23 14:37 STATUS: SOUVania REQ #: [id number] MARILIA: 08/21/23 00:[address]: Queenie Banerjee DEPT: IMMUNOHISTOCHEMISTRY RECD BY: Alvino Diaz ENTERED: 08/25/23 14:44 SP TYPE: IMMUNO OTHR DR: Dr. Mynor Hernández MD Tissues: C - Breast, NOS D - Axillary lymph node, NOS Procedures: CA-125 (add) CALPONIN-1 (add) CEA (add) CK5-6 (add) CK8 (add) E-CAD (add) HER2 EVELIO (add) KI-67 (add) MAMM (add) P53 (add) CA (add) IN SITU HYBRIDIZATION Pankeratin (add) GATA3 (add) P40 (add) MOC-31 (add) Surgery Specimen Level IV ER (initial) CEA (initial) PHYSICIAN & INSTITUTION [place] [address] SPECIMEN INFORMATION: Tissue Source: C- Left breast, D- Left axillary lymph node Clinical Info: Invasive ductal carcinoma of left breast, Enlarged lymph node in armpit, CHEK2 gene mutation positive. Specimen Number: [id number] CPT code: 12011U4,16751Q3,39251T17,78130x5 METHODOLOGY: Deparaffinized sections of prefer/formalin-fixed tissue or PAP/DQ stained slides are incubated with monoclonal/polyclonal antibodies/oligonucleotide probes. Localization is made via biotin free immunoperoxidase method. Appropriate controls are performed and reacted as expected. Results on target cell population are indicated in the following table: RESULTS: ANTIBODY / CLONE RESULT Block C 9 CA125 (OC125) negative CEA (11-7/TF-3HB-1) negative P53 (DO-7) negative, null pattern Ki-67 (30-9) positive, 50% CK8 (85twomV40) positive CK5-6 (D5 & 1684) negative Calponin-1 (US083J) negative P40 (BC28) negative E-Cad (ECH-6) positive MOC-31 (4561) positive MORPHOMETRIC ANALYSIS ER (clone 6F11) positive, >95%, moderate intensity CA (clone 16/1E2) positive, 85%, strong intensity Her-2Neu (clone CB11) equivocal, 2-3+ Block D4 AE1-3 (AE1/AE3/PCK26) positive CK8 (32ouloT17) positive Block D5 AE1-3 (AE1/AE3/PCK26) negative CK8 (57whytL23) negative Block D7 CEA (11-7/TF-3HB-1) positive, rare cells CA125 (OC125) positive, rare cells GATA3 (L50-823) positive Mammaglobin (31A5) negative The prognostic test for HER2 is performed on formalin-fixed paraffin embedded tissue. A 3+ (positive) staining pattern is defined as intense, homogeneous, complete, circumferential membranous staining in >10% of contiguous tumor cells. A similar weak (2+) staining pattern is interpreted as equivocal. BEN follow-up testing is recommended for all equivocal cases. Positivity/negativity for ER/CA is reported if > or < 1% of the tumor cells are immuno- reactive, respectively. The ASCO/CAP criteria is used for scoring. Reference: Journal of Clinical Oncology, 2013; 31:9571-6680 & 2010; 16:1249-7796. Ischemic time: Less than one hour. Duration of fixation: __ Hrs; Sample Adequate: Yes. These assays have not been validated on decalcified tissues. Results should be interpreted with caution given the likelihood of false negativity on decalcified specimens or fixation greater than 72 hours. Alternative testing methods (FISH/dualISH for Her2; gene expression for ER) are recommended, if applicable. Please notify the laboratory if additional testing is required. These tests were developed and their performance characteristics determined by [facility]. They may not have been cleared or approved by the U.S. Food and Drug Administration. The FDA has determined that such clearance or approval is not necessary. The above immunohistochemical/dualISH markers are ordered and reviewed by the Pathologist. INTERPRETATION: C. Left breast: Invasive ductal carcinoma. D. Left axillary lymph nodes: One lymph node positive for macro metastatic carcinoma. One lymph node negative for micro metastatic carcinoma. AM/ 08/28/23 ADDENDUM ADDENDUM ADDENDUM ADDENDUM ADDENDUM ADDENDUM ADDENDUM ADDENDUM ADDENDUM ADDENDUM ADDENDUM ADDENDUM ADDENDUM ADDENDUM ADDENDUM ADDENDUM ADDENDUM ADDENDUM ADDENDUM ADDENDUM ADDENDUM ADDENDUM ADDENDUM ADDENDUM ADDENDUM ADDENDUM 08/30/2023 11:57 ADDENDUM 08/30/2023 11:57 ADDENDUM 08/30/2023 11:57 ADDENDUM 08/30/2023 11:57 ADDENDUM 08/30/2023 11:57 IN SITU HYBRIDIZATION (BEN) FOR HER2 Interpretation: Not Amplified HER2 : CEP-17 Ratio: 1.17 Average HER2 Signal: 2.05 Average CEP-17 Signal: 1.75 Number of Tumor Cells Scanned: 50 Interpretative Information: The INFORM HER2 Dual BEN DNA Probe Cocktail assay is performed on formalin-fixed paraffin embedded tissue and determines HER2 gene status by detecting HER2 copies via silver in situ hybridization (SISH) and Chromosome 17 copies via chromogenic red in situ hybridization on tumor cells. A minimum of 20 cells representing > 10% of contiguous and homogeneous invasive tumor cells were analyzed. HER2 gene status is classified as Non-amplified (HER2/Chr17 ratio < 2.0) or Amplified (HER2/Chr17 ratio greater than or equal to 2.0). If the resulting HER2/Chr17 ratio falls within 1.8 - 2.2 (Borderline), retesting by FISH is recommended. Reference: Nataly AC, Rolly LYLEH, Malou DG, et al: Recommendations for Human Epidermal Growth Factor Receptor 2 Testing in Breast Cancer: [place] Society of Clinical Oncology / College of [place] Pathologists Clinical Practice Guideline Update. J Clin Oncol 31:9913-2670, 2013. Case has been reviewed in consultation with Dr. Escobar who concurs with the above diagnosis. IDC:SETH DANIEL/ 08/30/23
--- NOTE | 2023-08-21 07:25 | NM_ITS ---
PROCEDURE: NUCLEAR MEDICINE Injection [place] Node - LEFT breast(s). REASON FOR EXAM: Female, 43 years old. Left breast cancer. TECHNIQUE: [place] node localization using radionuclide methods of the LEFT breast(s) was performed following subcutaneous administration of 1.2 mCi of of sulfur colloid Tc-99m. COMPARISON STUDIES : NM - None. CR - Not available for review at this time. CT - Not available for review at this time. MR - Not available for review at this time. US - Not available for review at this time. FINDINGS: 1.2 mCi of technetium labeled sulfur colloid was injected subcutaneously in the periareolar region in 4 equal aliquots. NM/Lymph Node Injection Only IMPRESSION: 1.2 mCi of technetium labeled sulfur colloid was injected subcutaneously in the periareolar region in 4 equal aliquots for sentinel node imaging. Electronically Signed: Greyson Waters MD at 10:30 EDT ,
[2023-08-21 08:09] LABS: Internal QC Validated? YES +Cl - CLEAR BKGD; Pregnancy, Urine Negative Negative; Record Kit Lot#,Urine Preg HCG0000718086
--- NOTE | 2023-08-21 08:16 | HP.PCM_ITS ---
History and Physical Date of Admission: 08/21/23 Date of Service: 08/16/23 MR#: [id number] Acct: [id number] Name: MARY ANN SHRESTHA Rep #: [id number] : 1980 Provider: Dr. Queenie Banerjee MD Age/Sex: 42/F Location: [facility] Status: Signed with Addenda ADDENDUM by Dr. Queenie Banerjee MD on 08/17/23 at 1244 Assessment and Plan Assessment and Plan (1) Invasive ductal carcinoma of left breast: Status: Acute (2) Enlarged lymph nodes in armpit: Status: Acute Comment: left axillary nodule: inflamed and infarcted papillary lesion of breast on pathology core biopsy 07/04/23-no definitive LN tissue. (3) CHEK2 gene mutation positive: Status: Acute Plan Patient did also have her IUD removed. 08/17/23 1244 <Electronically signed by Queenie Banerjee MD> Date Queenie Banerjee MD cc: Dr. Tylor Hernández MD; Dr. Urbano Martin MD ~* Signed Intake Vital Signs 07/04/2411:40 08/15/2414:21 Height 5 ft 3 in BP 139/96 H Blood Pressure Location Rt brachial Position Sitting Respiration 17 Pulse 81 Pulse Source Monitor Pulse Oximetry (%) 99 Oxygen Delivery Method room air Intake Visit Reasons: Discuss Genetic Results & Surgical Plan Chief Complaint: discuss genetic results and plan Is patient in pain?: No Allergies No Known Allergies Allergy (Verified 08/16/23 15:23) Medications NK 07/04/23 [History Confirmed 08/16/23] PFSH Medical History Anxiety Headache, migraine Hypertension Lipoma Surgical History S/P excision of ganglion cyst S/P tonsillectomy Social History Smoking Status: Former smoker alcohol intake: never substance use type: does not use HPI HPI HPI: 42-year-old female presents with her discuss pathology and surgical opti ons. Patient's left breast biopsy did show invasive ductal carcinoma ER/NH positive, HER2/amy negative. This area spanned about 5 cm in the anterior breast. Patient also has enlarged left axillary nodes that were previously attempted to be biopsied however only really showed necrotic tissue no true diagnosis labeled be made. Patient does have several of these that are 3 to 4 cm in size. Patient had a PET scan did not show any evidence of metastasis. Patient is wanting a mastectomy and likely due to the ER/NH positive HER2/amy negative?neoadjuvant would not change the surgery. This was discussed with Dr. Martin her oncologist as well. Patient's genetics did show variant of uncertain significance in CHEK2, VHL, JOSÉ MIGUEL P1-otherwise negative ROS General General: Yes weight change and fatigue; No appetite, colon cancer, breast cancer or weakness HEENT HEENT: No difficulty swallowing, eye injury, eye surgery, swollen glands or hoarseness Endo Endocrine: No thyroid disease, diabetes mellitus, thyroid cancer, Hair loss, heat intolerance or cold intolerance Skin Skin: No rash or changing moles Breast Breast: Yes abnormal US; No left breast lump, right breast lump, nipple discharge, breast pain or breast enlargement Musc Musculoskeletal: No back problems, arthritis, rheumatoid arthritis, gout or joint pain Cardio Cardiovascular: No murmur, pacemaker, heart disease, atrial fibrillation, high blood pressure, heart attack, heart stent, palpitations, shortness of breat with exertion or chest pain Psych Psychiatric: Yes anxiety; No depression or hearing voices Resp Respiratory: No shortness of breath, No sleep apnea, No cough, No COPD, No asthma, No emphysema and No wheezing Gastro Gastrointestinal: No abdominal pain, No nausea or vomiting, No diarrhea, No constipation, No blood in stool, No acid reflux, No hemorrhoids, No ulcers, No gallbladder problem and No black,tarry stools [place] Hematologic: No blood thinners, No blood disorders, No bleeding, No anemia and No blood clots Neuro Neurologic: No numbness and No weakness Exam Const General: cooperative, healthy appearing and no acute distress [facility] Head: normal to inspection Resp Effort & Inspection: normal respiratory effort Cardio Rate: regular rate Assessment and Plan Assessment and Plan (1) Invasive ductal carcinoma of left breast: Status: Acute (2) Enlarged lymph nodes in armpit: Status: Acute Comment: left axillary nodule: inflamed and infarcted papillary lesion of breast on pathology core biopsy 07/04/23-no definitive LN tissue. (3) CHEK2 gene mutation positive: Status: Acute Plan I have given the patient options for initial surgical treatment. Options are the following: mastectomy vs. mastectomy followed by immediate reconstruction?would not recommend lumpectomy due to the size of the tumor and patient is agreeable with mastectomy. I have described the procedures to the patient. I have described the advantages and disadvantages of the options, but I have told the patient that among the options, the survival rate for breast cancer is the same. I have told the patient that with all the surgeries that a sentinel lymph node biopsy is required. I have described the procedure of sentinel lymph node biopsy to the patient and discussed that there are enlarged. I have told the patient that if the biopsy is positive for metastatic disease, then a full axillary lymph node dissection is required. I have told the patient that adjuvant chemotherapy will be required should the lymph nodes reveal metastatic disease. Also, a full lymph node dissection will increase the risk for lymphedema, especially if there are 4 or more lymph nodes positive for metastatic disease and radiation to the axilla is also required. I have told the patient the risks of surgery, including but not limited to: infection, bleeding, scar tissue, seroma and persistent seroma, lymph leak, injury to any blood vessels, injury to any nerves (particularly the long thoracic, the thoracodorsal, and the second intercostal brachial and the resultant sequelae), lymphedema, cosmetic deformity, dysesthesias, wound infections, further surgery (especially if margins are not clear), complications of anesthesia, etc. the patient understands. Patient is also interested in a right prophylactic mastectomy due to age and also having mammograms fail her previously as well as CHEK2 gene mutation. Did discuss with patient that additional procedure would double the risk of complications but we could proceed with right prophylactic mastectomy as long as she understood the possible risk. Patient and her were agreeable with left mastectomy with sentinel lymph node biopsy, injection of blue dye and radiotracer, possible axillary node dissection, right prophylactic mastectomy. Patient is not interested in any reconstruction. I have answered all the patient?s questions at this point to her satisfaction and she has no further questions. Queenie Banerjee M.D. Pager: [phone] [facility] [address] [place] [address] [address] [place] [address] Office: [phone] Coding Level of Care Code Off vis,est,level 4 Diagnoses Invasive ductal carcinoma of left breast C50.912 Enlarged lymph nodes in armpit R59.0 CHEK2 gene mutation positive Z15.89 08/17/23 1243 <Electronically signed by Queenie Banerjee MD> Date Queenie Banerjee MD
[2023-08-21] MEDS: Lactated Ringers 1,000 ML 15 ML IV ×3 (08:17→17:05)
[2023-08-21] MEDS: Cefazolin 2 GM in 0.9% Normal Saline (100mL Bag) 100 ML IV (09:55)
[2023-08-21] MEDS: 0.9% Normal Saline (Pres. free 10 ML Vial (10:15)
[2023-08-21] MEDS: Methylene Blue 1% 100 MG/10 ML VIAL (10:15)
--- NOTE | 2023-08-21 10:30 | AXNB_PTH ---
PATIENT: MARY ANN SHRESTHA LOC: MS3 U#:[id number] AGE/SX: 43/F ROOM: MT312 RE08/21/[address]: Dr. Queenie Banerjee MD : 1980 BED: 1 DIS: 08/22/2023 SPEC #: [id number] RECD: 08/21/23 13:56 STATUS: SALLY MAYTE #: [id number] MARILIA: 08/21/23 10:[address]: Queenie Banerjee DEPT: SURGICAL PATHOLOGY RECD BY: Alvino Diaz ENTERED: 08/21/23 13:57 SP TYPE: AX NODE BX OTHR DR: Dr. Mynor Hernández MD Tissues: A - Axillary lymph node, NOS B - Axillary lymph node, NOS C - Left breast, NOS D - Axillary lymph node, NOS E - Left breast, NOS F - Right breast, NOS G - Right breast, NOS Procedures: Frozen Section (charge) Surgery Specimen Level IV Surgery Specimen Level V HEADER OPERATION: Left mastectomy with sentinel lymph node biopsy and axillary PRE-OP DIAGNOSIS: Invasive ductal carcinoma of left breast, Enlarged lymph noes in armpit, CHEK2 gene mutation positive TISSUE SUBMITTED: A- Left breast sentinel node, frozen section, B- Additional left breast sentinel node, frozen section, C- Left breast- long suture grant lateral, short suture grant superior, D- Left axillary lymph node, E- Left breast new medial superior skin margin-long suture grant medial, short suture grant superior, F- Right breast - long suture grant lateral, short suture grant superior, G- Right breast new medial superior skin margin- long suture grant medial, short suture grant superior FROZEN SECTION DIAGNOSIS A. Left sentinel lymph node #1, biopsy: Macrometastatic carcinoma. B. Left axillary sentinel lymph node #2, biopsy: Macrometastatic carcinoma. AM/ 08/22/23 Case has been reviewed in consultation with Dr. Escobar who concurs with the above diagnosis. IDC:SJ MICROSCOPIC DIAGNOSIS A. Left axillary sentinel node #1, biopsy: One of one lymph node with macro metastatic carcinoma. B. Left axillary sentinel node #2, biopsy: One of one lymph node with macro metastatic carcinoma. C. Left breast, mastectomy: Invasive ductal carcinoma. See synoptic report below. See comment. D. Left axillary sentinel lymph nodes, regional lymphadenectomy: 18 out of 18 lymph nodes positive for metastatic carcinoma. See comment. E. Left breast new medial margin, excision: Skin and soft tissue, negative for carcinoma. F. Right breast, mastectomy: Non proliferative fibrocystic change. No evidence of malignancy. G. Right breast new medial margin, biopsy: Skin and soft tissue, negative for carcinoma. COMMENT C. BREAST CANCER SUMMARY Procedure: Mastectomy Specimen: Total breast Size: 22.0 x 18.0 x 6.0cm Laterality: Left breast Tumor foci: Two Invasive Tumor: Largest tumor Site: Not specified Size: 2.0 x 1.5 x 1.2cm Histologic type: Invasive ductal carcinoma. Histologic grade: Glandular/tubular differentiation score: 3 Nuclear pleomorphism score: 2 Mitotic count score: 1 Overall grade: 2 (score of 6) ER: Positive >95%, moderate intensity WY: Positive, 85%, strong intensity Her2: 2- 3+ (by IHC) Her2 by dual BEN: Pending Ki67: 50% (positive) See Case [id number] for details Invasive Tumor: Second tumor Site: Not specified Size: 1.5 x 1.5 x 1.0cm Histologic type: Invasive ductal carcinoma. Histologic Grade: Glandular/tubular differentiation score: 2 Nuclear pleomorphism score: 3 Mitotic count score: 1 Overall grade: 2 (score of 6) ER: >95% strong intensity WY: >95% strong intensity Her2: 0 Ki67: Approximately 20% (positive) See previous case [id number] for details Ductal Carcinoma In Situ: Present Estimated quantification: 15% of tumor Number of blocks: 8 of 15 blocks Architectural pattern: Cribriform and focal micro papillary Nuclear grade: 1-2 Necrosis: Focally present Lobular Carcinoma In Situ: Not present Tumor extension: Skin: Free of carcinoma Nipple: Free of carcinoma. Skeletal muscle: Not identified in specimen Margins Involved by Invasive Carcinoma: Not involved Distance from closest margin: 5.0 cm from posterior margin Margins Involved by In Situ Carcinoma: Not involved Distance from closest margin: 5.0 cm from posterior margin Lymph Nodes: Number of sentinel lymph nodes examined: 2 Total number of lymph nodes examined: 20 Macrometastatic carcinoma is identified in 19 of total 20 lymph nodes Micrometastatic carcinoma is identified in 1 of total 20 lymph nodes Largest metastatic deposit: 3.0cm Extra deena extension: Present: <2.0mm Lymphatic invasion: Present (Adjacent to lymph node tissue) Additional pathologic findings: Mild fibrocystic change and intraductal hyperplasia without atypia Microcalcifications: Present in neoplastic tissue Clinical history: Mass of left breast PATHOLOGIC STAGE: T1c N3a Mx The above summary is in compliance with [employer] (CAP) Cancer Protocol Checklist and [place] [employer] Committee on Cancer (AJCC) Staging Manual, 8th Ed. D. Immunohistochemistry ([id number]) supports the above diagnosis. 17 out of 18 lymph nodes show macrometastatic carcinoma. 1 lymph node shows micrometastatic carcinoma. MICROSCOPIC DESCRIPTION Slides are reviewed. GROSS DESCRIPTION A. Received fresh for frozen section diagnosis labeled with the patient's name is a specimen designated Left breast sentinel node. The specimen consists of a nodule measuring 4.0 x 3.5 x 2.0cm. The specimen is serially sectioned and reveal focal yellowish area occupying more than 50% of the specimen. Strategic Marketing Leader sections are submitted in two cassettes for frozen section diagnosis. The entire specimen is submitted in eight cassettes. The specimen is submitted after additional fixation B. Received fresh for frozen section diagnosis labeled with the patient's name is a specimen designated Additional left breast sentinel node. The specimen consists of a piece of nodular tissue measuring 4.5 x 3.5 x 2.0. Serial section reveals pinkish-red cut surfaces. [employer] Leader sections are submitted in two cassettes for frozen diagnosis. The rest of this specimen is submitted in six more cassettes 3-8. The specimen is submitted after additional fixation SJ/mr 08/22/23 C. Received in fixative is one container labeled with the patient's name and designated Left breast. The specimen consists of breast simple mastectomy with overlying skin measuring 22.0 x 18.0 x 6.0cm. The overlying skin measures 22.0 x 15.0cm. The nipple measures 1.4cm in greatest dimension. No skin lesion is identified. The specimen is inked as follows: posterior - black, superior - blue, inferior - green, medial - red and lateral - orange. [facility] 08/22/23 Section of the breast tissue reveal a paul indurated mass in the center portion of the breast measuring 1.5 x 1.0 x 1.5cm. Sections of the rest of this specimen reveal paul-yellow adipose cut surfaces mixed with paul-white fibrous areas. The mass is 5.0cm away from the posterior margin. A second indurated area is also noted measuring 1.0cm in greatest dimension. This area is 6.0cm away from the closest posterior margin. Section of the rest of this specimen is a paul yellow cut surfaces. [employer] Leader sections are submitted in 15 cassettes as follows: 1-Nipple entirely submitted, 2- Perpinduclar superior, anterior, and medial margin,3- perpendicular posterior, lateral margin and skin,4-6- Tumor, 7&8- Strategic Marketing Leader section adjacent to the tumor, 9&10- Second indurated area, 11- Strategic Marketing Leader section adjacent to the indurated area, 12-15- customer service representative teller sections away from the mass and indurated area. The specimen is submitted after additional fixation. [facility] 08/23/23 D. Received in fixative is one container labeled with the patient's name and designated Left axillary lymph node. The specimen consists of four variable size pieces of adipose tissue containing nodule measuring in aggregate 7.0 x 6.0 x 3.0cm. Multiple nodule consistent with lymph nodes are identified. Largest lymph node measures 3.0cm in greatest dimension. Many of the lymph nodes are grossly involved by metastatic carcinoma. [employer] Leader sections are submitted in 15 cassettes as follows: 1-10- each cassette contains one lymph node, 11&12- One serially sectioned lymph node, 13&14- One serially sectioned lymph node largest lymph node, 15- Multiple lymph nodes lymph nodes are submitted in entirety. [facility] 08/22/23 E. Received in fixative is one container labeled with the patient's name and designated Left breast new medial superior skin margin. The specimen consists of a piece of skin with underlying tissue measuring 7.5 x 1.5cm and up to 2.0cm in the thickness. This specimen is inked as follows: Superior margin - blue, Interior margin - green/blue, Medial margin - red/orange, Lateral margin - orange. No mass lesion is identified. [employer] Leader sections are submitted in two cassettes. Cassette one contains the lateral and medial margin. Cassette two contains the additional section. The specimen is submitted after additional fixation [facility] 08/22/23 F. Received in fixative is one container labeled with the patient's name and designated Right breast. The specimen consists of breast simple mastectomy with overlying skin measures 21.0 x 20.0 x 6.0cm and overlying skin measures 21.0 x 16.0cm. Nipple measures 1.5cm in greatest dimension. No skin lesion is identified. The specimen is inked as follows: posterior - black, superior - green, inferior - blue, medial - red and lateral - orange. Sections reveal yellow adipose cut surfaces mixed with paul-white fibrous areas. No obvious mass lesion is identified. More dictation will follow after additional fixation.[facility] 08/22/23 G. Received in fixative is one container labeled with the patient's name and designated Right breast new medial skin margin. The specimen consists of a partial breast resection with underlying tissue measuring 11.0 x 2.2cm and up to 2.0cm in thickness. Medial- red, lateral- orange, Superior margin - green, Inferior margin - blue. No mass lesion is identified. No skin lesion is noted either. [employer] Marketing Leader sections are submitted in two cassettes as follows: 1- New medial margin, 2- customer service representative teller section from other areas. The specimen is submitted after additional fixation [facility] 08/22/23TC:0 CPT: 99634,5,[id number]
--- NOTE | 2023-08-21 10:49 | BI_ITS ---
SURGICAL BREAST SPECIMEN RADIOGRAPH CLINICAL: Document presence of tissue clip marker in biopsy specimen. FINDINGS: Specimen shows presence of tissue clip marker. Electronically Signed: Greyson Waters MD at 12:24 EDT , BI/Breast Biopsy Specimen IMPRESSION: undefined
[2023-08-21] MEDS: Bupivacaine Mpf 0.5% 30 ML VIAL (12:30)
[2023-08-21] MEDS: Bupivacaine 0.5% PF 10 ML VIAL (14:53)
--- NOTE | 2023-08-21 15:28 | OP.PCM_ITS ---
Report of Operation Date of Procedure: 08/21/23 Pre-Operative Diagnosis: Left breast cancer, prophylactic right Post-Operative Diagnosis: Left breast cancer metastatic to regional axillary nodes, prophylactic right Surgery/Procedure Performed:: Left mastectomy and axillary lymph node dissection, right prophylactic mastectomy Surgeon: Queenie Banerjee slot machine key person: Usama Philip Type of Anesthesia: General/Supplemental Anesthesiologist: Nathanael Morales Special Medications: Ancef 2 g IV x 2-- redosed 1350 Specimen's removed: Left sentinel lymph node x 2, left axillary node contents, left mastectomy, right mastectomy Drains: MARITZA x 2 on the left, MARITZA x 1 on the right, Rodriguez 700 cc Estimated Blood Loss (mL): 80 cc Fluids Replaced: 2600 cc Description of Procedure: Synoptic Portion: Element Response Options Operation performed with curative intent. Yes Resection was performed within the boundaries of the axillary vein, chest wall (serratus anterior), and latissimus dorsi. Yes Nerves identified and preserved during dissection (select all that apply) Long thoracic nerve; Thoracodorsal nerve; Branches of the intercostobrachial nerves Level III nodes were removed. No In AC the breast tissue was injected with TC-9 9 sulfur colloid. >90 minutes later the patient was taken to the operating room. 5 cc of methylene blue dye was injected in the 4 quadrants periareolar along with 10 cc of normal saline. This was massaged gently for 5 minutes. General anesthesia was induced. The bilateral breast and left axilla were prepped and draped in usual sterile fashion. A timeout was completed verifying correct patient, procedure, site, positioning, special equipment prior to beginning procedure. Axillary counts prior to incision were for, grossly abnormal large about 4 cm node was removed 10 count was 85 and additional large grossly abnormal node was removed with a 10 count of 84 which also had blue lymphatics going to it. Frozen on these 2 specimen showed macro metastasis positive. First large node was sent to mammography and x-ray did confirm clip that was previously placed. Left mastectomy skin incision was made that encompassed the nipple areolar complex and the previous biopsy scar in past and generally oblique direction across the breast. Flaps are raised in the avascular plane between the prescription he continues tissues in the breast tissue from the clavicle s uperiorly, the sternum medially, the anterior rectus sheath inferiorly, and posterolateral border of the pectoralis major muscle laterally. Hemostasis was achieved in the flaps. Next, the breast tissue and underlying pectoralis fascia were excised from the pectoralis major muscle, progressing from medial to laterally. At the lateral border of the pectoralis major muscle, the breast tissue was swung laterally and the lateral pedicle identified with the breast tissue gave way to the fat of the axilla. The lateral pedicle was incised and the specimen removed and oriented for pathology. The wound was irrigated with sterile water and hemostasis was achieved. The borders of the axillary vein, latissimus dorsi, serratus anterior are identified. The long thoracic and thoracodorsal nerves are also identified and protected throughout the dissection. The intercostobrachial was identified and outside attempted to protect but difficult due to grossly enlarged lymph nodes. All the nodes?(level 1 and 2 nodes) within these borders along with the positive lymph node were removed and sent to pathology. The specimen was oriented. The cavities were irrigated. Hemostasis was checked. Closed suction drains were brought into the operating field through a separate stab incision and sutured to skin with 3-0 nylon suture. The incision was closed with interrupted 2-0 Vicryl to the simultaneously followed by a subcuticular layer of 4-0 Monocryl and Steri-Strips. Separate set up was used for the right prophylactic side. Right mastectomy skin incision was made that encompassed the nipple areolar complex and generally oblique direction across the breast. Flaps are raised in the avascular plane between the prescription he continues tissues in the breast tissue from the clavicle superiorly, the sternum medially, the anterior rectus sheath inferiorly, and posterolateral border of the pectoralis major muscle laterally. Hemostasis was achieved in the flaps. Next, the breast tissue and underlying pectoralis fascia were excised from the pectoralis major muscle, progressing from medial to laterally. At the lateral border of the pectoralis major muscle, the breast tissue was swung laterally and the lateral pedicle identified with the breast tissue gave way to the fat of the axilla. The lateral pedicle was incised and the specimen removed and oriented for pathology. The wound was irrigated and hemostasis was achieved. The specimen was oriented and sent to radiology. The cavity was irrigated. Hemostasis was checked. Closed suction drain was brought into the operating field through a separate stab incision and sutured to skin with 3-0 nylon suture. The incision was closed with interrupted 2-0 Vicryl to the simultaneously followed by a subcuticular layer of 4-0 Monocryl and Steri- Strips. The bilateral incisions were dressed and Jose wrap placed. The patient tolerated procedure well was taken to the postanesthesia care in stable condition. Complications none
[2023-08-21] MEDS: Lactated Ringers 1,000 ML 130 ML IV (17:40)
[2023-08-21] MEDS: Ketorolac 15 MG/ML Vial IV (19:20)
[2023-08-21] MEDS: 0.9% Saline Lock 10 ML Syringe IV (19:20)
[2023-08-21] MEDS: Acetaminophen 325 MG Tablet 650 MG PO (22:18)
[2023-08-22 00:37] VITALS: BP 99/64; PULSE 57; RESP 20; TEMP 36.4; O2SAT 96
[2023-08-22] MEDS: 0.9% Saline Lock 10 ML Syringe IV ×2 (00:41→10:04)
[2023-08-22] MEDS: Ondansetron 4 MG/2 ML Vial IV ×2 (00:41→10:04)
[2023-08-22] MEDS: oxyCODONE 5 MG Tablet PO (00:44)
[2023-08-22] MEDS: Lactated Ringers 1,000 ML 130 ML IV (00:46)
[2023-08-22] MEDS: Ketorolac 15 MG/ML Vial IV ×2 (01:46→07:46)
[2023-08-22 04:27] VITALS: BP 103/65; PULSE 52; RESP 18; TEMP 36.7; O2SAT 96
[2023-08-22] MEDS: Acetaminophen 325 MG Tablet 650 MG PO (04:31)
[2023-08-22 07:17] LABS: Absolute Lymphocyte Count 1.81 X10^3/uL (0.83-4.51); Absolute Neutrophil Count 11.9 X10^3/uL (2.0-7.7); Basophil# 0.04 X10^3/uL; Basophil% 0.3 % (0-1); Eosinophil# 0.01 X10^3/uL; Eosinophils% 0.1 % (0-5); Hematocrit 28.7 % (37-47); Hemoglobin 9.4 g/dL (12.0-15.0); Lymphocyte # 1.81 X10^3/ul (0.83-4.51); Lymphocyte % 11.9 % (19-41); Mean Corp Hgb Conc 32.8 g/dL (32-36); Mean Corpuscular Hgb 28.1 pg (27.0-32.0); Mean Corpuscular Volume 85.9 fL (81-99); Mean Platelet Vol. 9.3 fl (6.2-12.0); Monocyte# 1.36 X10^3/uL; Monocyte% 8.9 % (0-10); NRBC Flagged by Analyzer 0 % (0-5); Neutrophil # 11.92 X10^3/uL (2.7-7.7); Neutrophil % 78.3 % (47-70); Platelet Count 343 K/mm3 (150-450); RBC Distribution Width CV 13.1 % (11.6-14.6); RBC Distribution Width SD 40.4 fl (35.1-43.9); Red Blood Count 3.34 M/mm3 (4.2-5.4); White Blood Count 15.2 K/mm3 (4.4-11.0)
--- NOTE | 2023-08-22 08:01 | PN.SURG_ITS ---
Subjective Subjective Patient states pain is controlled with Toradol. Patient did have a clot in her right MARITZA early in the morning which was removed with stripping of the drain. Objective Data Objective Data Vital Signs: Vital Signs Temp Pulse Resp BP Pulse Ox O2 Del Method O2 Flow Rate 98.1 F 52 L 18 103/65 96 Room Air 2 08/22/23 04:27 08/22/23 04:27 08/22/23 04:27 08/22/23 04:27 08/22/23 04:27 08/22/23 04:27 08/21/23 16:53 Oxygen Flow Rate (L/min) 2 Oxygen Delivery Method Room Air Weight: 200 lb Body Mass Index (BMI) 35.4 Intake & Output: Intake and Output for Last 24 Hours 08/20/23 08/21/23 08/22/23 23:59 23:59 23:59 Intake Total 3124.75 / 3124.75 1839.5 / 1839.5 Output Total 1309 / 1309 155 / 155 Balance 1815.75 / 1815.75 1684.5 / 1684.5 Lab / Micro Data 08/22/23 06:41 08/22/23 06:41 Labs: Laboratory Results - last 24 hr 08/21/23 08:00: Urine Test Negative 08/22/23 06:41: WBC 15.2 H, RBC 3.34 L, Hgb 9.4 L, Hct 28.7 L, MCV 85.9, MCH 28.1, MCHC 32.8, RDW Std Deviation 40.4, RDW Coeff of Arnav 13.1, Plt Count 343, MPV 9.3, Immature Gran % (Auto) 0.500, Neut % (Auto) 78.3 H, Lymph % (Auto) 11.9 L, [place] % (Auto) 8.9, Eos % (Auto) 0.1, Baso % (Auto) 0.3, Absolute Neuts (auto) 11.9 H, Absolute Lymphs (auto) 1.81, Nucleated RBC % 0 Radiography Diagnostic Testing: Radiology Impression [place] Node 08/21/23 07:25 IMPRESSION: 1.2 mCi of technetium labeled sulfur colloid was injected subcutaneously in the periareolar region in 4 equal aliquots for sentinel node imaging. Electronically Signed: Greyson Waters MD at 10:30 EDT , Breast Biopsy 08/21/23 10:49 IMPRESSION: undefined Physical Exam Narrative Bilateral mastectomy incisions healing well small amount of sanguinous drainage on the dressing near the sternum and by the right MARITZA site. MARITZA sanguinous x 3 Resp normal respiratory effort Cardio regular rate GI soft to palpation Assessment & Plan Assessment/Plan (1) S/P bilateral mastectomy: (2) History of lymph node dissection of left axilla: PLAN: Plan Patient is tolerating diet Pain control with Toradol Hemoglobin 9.4 however previous hemoglobin was 13 but that was over a year ago. MARITZA teaching before discharge, follow-up in the office later this week. Queenie Banerjee M.D. Pager: [phone] [facility] [address] [place] [address], [facility], [address] [place] [address] Office: [phone]
--- NOTE | 2023-08-22 08:01 | EX.PCM.DISCH ---
Discharge Instructions Procedure Breast Surgery Diet Discharge Diet: No restrictions Activity Discharge Activity: May Not Drive (while taking narcotic pain meds.) and May Not Shower (With JPs in place okay to lower shower) May shower in (days): 1 Lifting Restrictions: 10 pounds for 2 weeks Dressing / Incision Call your doctor if your incision/area has: Continuous Slow Oozing, Sudden Increased Bleeding, Increased Pain/ Swelling and Increased Redness Call your doctor if you observe: Fever of 101 or Higher Suture Line Care: Avoid Pulling/Pushing Remove Dressing in: 1 day (bulky dressing--change and replace ABD pads/ EMMA Wrap) Additional Dressing/Incision Instructions:: Strip drains q8H but if clots do more often; ok to remove EMMA Wrap for redressing but replace EMMA wrap after Follow Up Care Please Follow Up With: Queenie Banerjee MD When: Please call [phone] for an appointment to be seen 08/25/23, keep log of drains-amount/color and bring to appointment Test Results: Test results from this visit will be discussed in further detail at your follow-up appointment, if applicable. Discharge Plan Admission Admit Date/Time: 08/21/23 15:36 Attending Provider: Queenie Banerjee Primary Care Provider: Mynor Hernández Discharge Orders/Prescriptions Prescriptions: New tramadol 50 mg tablet 50 mg PO Q6H PRN (Reason: pain) Qty: 14 0RF Referrals / Follow Up: Mynor Hernández MD [Primary Care Provider] - Disposition Disposition (needs filled in before D/C Order can be placed): Home, Self Care
[2023-08-22 09:04] VITALS: BP 115/70; PULSE 61; RESP 16; TEMP 36.7; O2SAT 98
--- NOTE | 2023-08-22 09:24 | PHA.DC_ITS ---
Pharmacy [facility] has performed discharge medication reconciliation and counseling for this patient. The patient's discharge medication list was reviewed for discrepancies and discrepancies were resolved. The patient was counseled on the following discharge medications and changes in medications for homegoing were reviewed. The Reason for Use, instructions for use, and potential side effects were reviewed for all new medications. The patient's questions regarding all of their medications were answered. The patient was able to verbally demonstrate an understanding of their discharge medications. The patient demonstrated some understanding but would benefit from further education and reinforcement. The patient was not able to adequately demonstrate understanding. Medications at Discharge Home Medications tramadol 50 mg tablet 50 mg PO Q6H PRN pain #14 tabs 08/22/23
--- NOTE | 2023-08-22 09:52 | CASEMGMT ---
MYESHA CM into pt room, pt sitting up in chair with at bedside. Pt reports she feels comfortable with her drain care upon homegoing. Pt is able to assist. Pt is up I and I in ADL's. Pt denies any homegoing needs.
--- NOTE | 2023-08-22 11:00 | NURSING ---
pt and spouse educated on olimpia care and dressing changes. supplies given to pt for dressing change.
[2023-08-22 13:44] LABS: Anion Gap 8 (5-15); BUN 13 mg/dL (7-18); BUN/Creat Ratio 16.5 RATIO (10-20); Calcium,Total 8.5 mg/dL (8.5-10.1); Chloride 107 mmol/L (98-107); Creatinine, Serum 0.79 mg/dL (0.55-1.02); EST Glomerular Filtration Rate 85 mL/min (>60); Est Glom Filt Rate - Afr Amer 103 mL/min (>60); Estimated Creatinine Clearance 98.17 ml/min; Glucose 110 mg/dL (74-106); Potassium 4.1 mmol/L (3.5-5.1); Sodium Level 138 mmol/L (136-145)
== END 2023-08-22 11:18 | disposition home or self-care (01) ==
LOC: MS3 08-22 08:08 → SDC 08-24 14:52 → MS3 08-24 14:52
PROVIDERS: Anesthesiology; Admitting Provider Surgery; PCP Family Medicine; Referring Provider Surgery; Visit Provider Surgery
PROC: (CPT 19307; principal; 2023-08-21 10:15)
DX: C50.912 Malignant neoplasm of unspecified site of left female breast (principal); C77.3 Secondary and unspecified malignant neoplasm of axilla and upper limb lymph nodes; I10 Essential (primary) hypertension; Z17.0 Estrogen receptor positive status [ER+]; Z87.891 Personal history of nicotine dependence; Z40.01 Encounter for prophylactic removal of breast
CPT/HCPCS: 19303; 38525; 00400; 36415; 38792; 76098; 80048; 81002; 81025; 85025; 88305; 88307; 88331; 88341; 88342; 88368; 94668; 96361; 96374; 96375; 96376; 99221; A4648; A9541; J7120; A4216; G0378; J2405; J3490

== ENCOUNTER 2023-09-07 05:52 | Day surgery (SDC) | payer BC, SELFPAY ==
[2023-09-07 06:35] LABS: Internal QC Validated? YES +Cl - CLEAR BKGD; Pregnancy, Urine Negative Negative
[2023-09-07] MEDS: Lactated Ringers 1,000 ML 15 ML IV (06:38)
[2023-09-07 06:40] VITALS: BP 119/88; PULSE 76; RESP 16; TEMP 36.6; O2SAT 100; BMI 34.0
--- NOTE | 2023-09-07 07:05 | PCM.HP.BLA ---
History and Physical Date of Admission: 09/07/23 Date of Service: 09/04/23 MR#: [id number] Acct: [id number] Name: MARY ANN SHRESTHA Rep #: [id number] : 1980 Provider: SYDNIE Gracia Age/Sex: 43/F Location: [facility] Status: Signed Intake Vital Signs 08/20/2416:31 09/03/2409:28 Height 5 ft 3 in 5 ft 3 in BP 153/85 H Blood Pressure Location Rt brachial Position Sitting Respiration 18 Intake Visit Reasons: 1 W FU Chief Complaint: seroma Allergies povidone-iodine [From Betadine] Allergy (Intermediate, Verified 08/31/23 16:09) Rash PFSH Medical History Anxiety Former smoker Headache, migraine History of steroid therapy Hx of lipoma Hypertension Lipoma Wears contact lenses Wears glasses Surgical History History of lymph node dissection of left axilla Hx of breast biopsy Hx of lymph node biopsy S/P bilateral mastectomy S/P excision of ganglion cyst S/P tonsillectomy Social History Smoking Status: Former smoker alcohol intake: never substance use type: does not use HPI HPI Surgical H&P: Yes HPI: Patient is a 43 y/o F who contacted our office noting fullness and fluid within the right mastectomy site. Patient was asked to come into the office today. She denies any incisional drainage or fever. She notes her rash has improved. She states she had an appointment with oncology last week and they would like her to have a port placed to start chemotherapy. Patient notes she is otherwise doing well. Patient denies previous central line placement. She denies having a previous port placed. Patient's previous history below: Patient is a 43 y/o F I am following s/p left mastectomy and axillary lymph node dissection and right prophylactic mastectomy by Dr. Banerjee on 08/21/23. Patient tolerated the procedure well. Pathology is pending. Patient's main complaint is irritation of the right side/axillary region from rubbing of the EMMA wrap. She has tried taking Benadryl which has helped some. She has also tried Benadryl ointment once with some relief. Patient has been continuing to track her drain output. It appears on the left side, her drainage output averages 30-60 cc per day. Her drain output on the right side averages out to <5 cc per day. Drainage color has been serosanguineous on the left side and more bloody on the right side. Per patient, she was told she would have a hematoma following the procedure on the right side. Patient notes her ROM is good. She notes being limited by the drains. She denies nausea, vomiting, fever. She notes appetite is slowly returning. She follows with Dr. Martin for oncology [facility]. Patient returns for a follow-up and possible drain removal. She notes the drainage has slowed down into the drains. Patient notes the rash has now moved to her left shoulder. She notes using the hydrocortisone ointment. She notes that is the only area that is very itchy. She notes the right side has improved and no longer is itchy. She denies any other concerns or complaints today. She voices readiness to remove the drains. She has a follow-up with oncology on September 25. Pathology returned and demonstrated: FROZEN SECTION DIAGNOSIS A. Left sentinel lymph node #1, biopsy: Macrometastatic carcinoma. B. Left axillary sentinel lymph node #2, biopsy: Macrometastatic carcinoma. AM/mr 08/22/23 Case has been reviewed in consultation with Dr. Escobar who concurs with the above diagnosis. IDC:SJ MICROSCOPIC DIAGNOSIS A. Left axillary sentinel node #1, biopsy: One of one lymph node with macro metastatic carcinoma. B. Left axillary sentinel node #2, biopsy: One of one lymph node with macro metastatic carcinoma. C. Left breast, mastectomy: Invasive ductal carcinoma. See synoptic report below. See comment. D. Left axillary sentinel lymph nodes, regional lymphadenectomy: 18 out of 18 lymph nodes positive for metastatic carcinoma. See comment. E. Left breast new medial margin, excision: Skin and soft tissue, negative for carcinoma. F. Right breast, mastectomy: Non proliferative fibrocystic change. No evidence of malignancy. G. Right breast new medial margin, biopsy: Skin and soft tissue, negative for carcinoma. COMMENT C. BREAST CANCER SUMMARY Procedure: Mastectomy Specimen: Total breast Size: 22.0 x 18.0 x 6.0cm Laterality: Left breast Tumor foci: Two Invasive Tumor: Largest tumor (second tumor found following mastectomy) Site: Not specified Size: 2.0 x 1.5 x 1.2cm Histologic type: Invasive ductal carcinoma. Histologic grade: Glandular/tubular differentiation score: 3 Nuclear pleomorphism score: 2 Mitotic count score: 1 Overall grade: 2 (score of 6) ER: Positive >95%, moderate intensity VA: Positive, 85%, strong intensity Her2: 2- 3+ (by IHC) Her2 by dual BEN: Pending Ki67: 50% (positive) See Case [id number] for details Invasive Tumor: Second tumor (original biopsied tumor) Site: Not specified Size: 1.5 x 1.5 x 1.0cm Histologic type: Invasive ductal carcinoma. Histologic Grade: Glandular/tubular differentiation score: 2 Nuclear pleomorphism score: 3 Mitotic count score: 1 Overall grade: 2 (score of 6) ER: >95% strong intensity VA: >95% strong intensity Her2: 0 Ki67: Approximately 20% (positive) Ductal Carcinoma In Situ: Present Estimated quantification: 15% of tumor Number of blocks: 8 of 15 blocks Architectural pattern: Cribriform and focal micro papillary Nuclear grade: 1-2 Necrosis: Focally present Lobular Carcinoma In Situ: Not present Tumor extension: Skin: Free of carcinoma Nipple: Free of carcinoma. Skeletal muscle: Not identified in specimen Margins Involved by Invasive Carcinoma: Not involved Distance from closest margin: 5.0 cm from posterior margin Margins Involved by In Situ Carcinoma: Not involved Distance from closest margin: 5.0 cm from posterior margin Lymph Nodes: Number of sentinel lymph nodes examined: 2 Total number of lymph nodes examined: 20 Macrometastatic carcinoma is identified in 19 of total 20 lymph nodes Micrometastatic carcinoma is identified in 1 of total 20 lymph nodes Largest metastatic deposit: 3.0cm Extra deena extension: Present: <2.0mm Lymphatic invasion: Present (Adjacent to lymph node tissue) Additional pathologic findings: Mild fibrocystic change and intraductal hyperplasia without atypia Microcalcifications: Present in neoplastic tissue Clinical history: Mass of left breast PATHOLOGIC STAGE: T1c N3a Mx The above summary is in compliance with [employer] [place] Pathology (CAP) Cancer Protocol Checklist and [place] Joint Committee on Cancer (AJCC) Staging Manual, 8th Ed. D. Immunohistochemistry ([id number]) supports the above diagnosis. 17 out of 18 lymph nodes show macrometastatic carcinoma. 1 lymph node shows micrometastatic carcinoma ROS General General: Yes weight change and fatigue; No appetite, colon cancer, breast cancer or weakness HEENT HEENT: No difficulty swallowing, eye injury, eye surgery, swollen glands or hoarseness Endo Endocrine: No thyroid disease, diabetes mellitus, thyroid cancer, Hair loss, heat intolerance or cold intolerance Skin Skin: No rash or changing moles Breast Breast: Yes abnormal US; No left breast lump, right breast lump, nipple discharge, breast pain or breast enlargement Musc Musculoskeletal: No back problems, arthritis, rheumatoid arthritis, gout or joint pain Cardio Cardiovascular: No murmur, pacemaker, heart disease, atrial fibrillation, high blood pressure, heart attack, heart stent, palpitations, shortness of breat with exertion or chest pain Psych Psychiatric: Yes anxiety; No depression or hearing voices Resp Respiratory: No shortness of breath, No sleep apnea, No cough, No COPD, No asthma, No emphysema and No wheezing Gastro Gastrointestinal: No abdominal pain, No nausea or vomiting, No diarrhea, No constipation, No blood in stool, No acid reflux, No hemorrhoids, No ulcers, No gallbladder problem and No black,tarry stools [place] Hematologic: No blood thinners, No blood disorders, No bleeding, No anemia and No blood clots Neuro Neurologic: No numbness and No weakness Exam Const General: cooperative, healthy appearing, comfortable and no acute distress [facility] Head: normal to inspection Eyes General: appearance normal, both eyes and all related structures Neck Neck: normal visual inspection Neck mass: No Chest Other: Chest- bilateral incisions c/d/i. Moderate ecchymosis noted on the right side of the chest. Positive fluid wave. She denies pain or pressure. Left chest with faint ecchymosis. No hematoma. No fluid wave noted. All steri-strips were removed. All drains have been removed. Right chest- lateral area inferior to the incision was cleansed with ChloraPrep. Area was injected with 0.5 mL of lidocaine was used to form a wheal. An 18 gauge needle was used to aspirate 180 cc of dark red blood. Bacitracin and op-site was applied over top of the puncture site. Patient tolerated the aspiration well. Resp Effort & Inspection: normal respiratory effort Auscultation: clear to auscultation bilaterally Cardio Rate: regular rate Rhythm: regular rhythm GI Inspection: normal to inspection Palpation: soft Auscultation: normal bowel sounds Musc Cervical Spine: normal cervical lordosis Skin General: no rashes or lesions noted Neuro General: no focal motor deficits and CN's II-XI intact bilaterally Extrem General: normal to inspection Psych Appearance: grossly normal Affect: normal affect Assessment and Plan Assessment and Plan (1) Invasive ductal carcinoma of left breast: Status: Acute (2) S/P bilateral mastectomy: Status: Acute Comment: left due to IDC and right prophylactic 08/21/2023 (3) History of lymph node dissection of left axilla: Status: Acute Plan Dr. Banerjee will plan to perform a right internal jugular port-a-cath placement. Procedure details, risks and benefits have been explained to the patient. At the same setting, Dr. Banerjee will evaluate the patient for a possible seroma cath placement/drain placement of the right chest for hematoma drainage. Procedure details, risks and benefits have been explained to the patient. Patient has had the opportunity to ask and have questions answered. Patient verbally understands and agrees with the plan. Patient is not currently on any blood thinners. Patient did develop a rash from the last procedure. Unsure of the source for the rash, betadine versus antibiotics versus stress response. Patient will continue with Benadryl, Pepcid and Claritin regimen as it is resolving the rash. Patient's appointment for will be canceled for the procedure. Patient is not on any blood thinners. Coding Level of Care Code Attention Devulcanizer Tender Diagnoses Invasive ductal carcinoma of left breast C50.912 S/P bilateral mastectomy Z90.13 History of lymph node dissection of left axilla Z98.890 Comment modifier 24 Clinical Quality Measures High Blood Pressure Screening/Follow Up High Blood Pressure follow-up Instructions: Recommended Blood Pressure Follow-Up Interventions: *Normal BP: No follow-up required for SBP < 120 mmHg and DBP < 80 mmHg: *Elevated BP: Patients with SBP of 120-129 mmHg and DBP < 80 mmHg: *Referral to Alternate/Primary Care Health Finisher [employer] OR * Follow-up with rescreen in 2 to 6 months AND recommend nonpharmacologic interventions * First Hypertensive BP Reading: Patients with one elevated reading of SBP >=130 mmHg OR DBP >= 80 mmHg: *Referral to Alternate/Primary Care Health Professional OR *Follow-up with rescreen in >1 day and < 4 weeks AND recommend nonpharmacologic interventions *Second Hypertensive BP Reading: *Second Hypertensive BP Reading:Patients with second elevated reading of SBP of 130-139 mmHg or DBP of 80-89 mmHg (and not SBP >=140 or DBP >=90): * Referral to Alternate/Primary Care Health Finisher [employer] OR *Nonpharmacological Intervention AND reassessment in 2-6 months AND an order for a laboratory test or ECG for hypertension *Second Hypertensive BP Reading: SBP >=140 or DBP >=90 *Referral to Alternate/Primary Care Healthcare Professional OR *Nonpharmacological Intervention AND BP lowering medication AND reassessment within 4 weeks AND an order for a laboratory test or ECG for hypertension BP Second Hypertensive Readings: For both questions related to the second hypertensive readings, orders for lab/ECG need to be placed in addition to responding to the non-pharmacological and follow up questions. 09/04/23 7005 <Electronically signed by Lucila RANDHAWA PA-C> Date Lucila RANDHAWA PA-C
[2023-09-07] MEDS: 0.9% Saline Lock 10 ML Syringe IV (07:22)
[2023-09-07] MEDS: Bupivacaine 0.5% PF 10 ML VIAL (07:22)
[2023-09-07] MEDS: Lidocaine 1%/Epi 1:200 (30ml) 30 ML AMPUL (07:22)
[2023-09-07] MEDS: Cefazolin 2 GM in 0.9% Normal Saline (100mL Bag) 100 ML IV (07:40)
--- NOTE | 2023-09-07 08:40 | DCINST_ITS ---
Discharge Instructions Procedure Port-A-Cath Diet Discharge Diet: Light diet - advance as tolerated Activity May shower in (days): 5 (Keep port site clean and dry x5 days. Neck incision okay to get wet after 1 day. Okay to lower shower and upper sponge bath. OR okay to taper off port site with a Ziploc bag to shower) Lifting Restrictions: No lifting > 15 pounds for 3 days with the arm on the side of the port Additional Activity Instructions:: keep juan wrap or compression bra in place as much as possible Dressing / Incision Call your doctor if your incision/area has: Continuous Slow Oozing, Sudden Increased Bleeding, Increased Pain/ Swelling, Increased Redness, Foul Smelling Discharge and Swelling at the incision site Call your doctor if you observe: Fever of 101 or Higher Change Dressing in: 2 days (2-3 days- port site; ok to remove neck opsite in 1 day) Follow Up Care Please Follow Up With: Queenie Banerjee MD When: In 10 days for permanent suture removal?call office for appointment Test Results: Test results from this visit will be discussed in further detail at your follow- up appointment, if applicable. Discharge Plan Admission Attending Provider: Queenie Banerjee Primary Care Provider: Mynor Hernández Discharge Orders/Prescriptions Prescriptions: No Action tramadol 50 mg tablet 50 mg PO Q6H PRN (Reason: pain) Qty: 14 0RF lidocaine-prilocaine 2.5-2.5 % cream 1 applic topical PRN PRN (Reason: PORT) famotidine [Acid Controller] 20 mg tablet 20 mg PO BID Patient Comments: FOR CURRENT RASH loratadine [Claritin] 10 mg tablet 10 mg PO DAILY Patient Comments: FOR CURRENT RASH diphenhydramine HCl [Benadryl] 25 mg capsule 25 mg PO QHS Patient Comments: FOR CURRENT RASH Referrals / Follow Up: Mynor Hernández MD [Primary Care Provider] - Disposition Disposition (needs filled in before D/C Order can be placed): Home, Self Care
--- NOTE | 2023-09-07 08:40 | PCM.OPRPT ---
Report of Operation Date of Procedure: 09/07/23 Pre-Operative Diagnosis: Left breast cancer, right chest hematoma Post-Operative Diagnosis: Same Surgery/Procedure Performed:: 1 placement of right IJ Port-A-Cath 2. Use of ultrasound 3. Use of fluoroscopy 4. Aspiration/evacuation of right chest hematoma Surgeon: Queenie Banerjee Type of Anesthesia: MAC/Supplemental Anesthesiologist: Andres Low Special Medications: Ancef 2 g IV x 1 Specimen's removed: Removed about 280 cc of liquefied hematoma/clot Estimated Blood Loss (mL): 10 cc Description of Procedure: After informed consent was given, the patient was brought to the operating room and placed in the supine position. Appropriate time out protocol was followed. Patient was then given IV conscious sedation for anesthesia. The patient's right chest and neck were then prepped with a surgical skin preparation and sterile surgical drapes were placed. After proper landmarks were ascertained, the skin at the upper right chest area was then infiltrated with 1:1 mixture of 1% lidocaine with epinephrine and 0.5% marcaine. A needle trocar was then inserted into the right internal jugular vein with ultrasound guidance-multiple vessels were viewed with u/s and the right IJ was chosen-- and there was good aspiration of venous blood. A wire was then threaded into the needle trocar and this was visualized under fluoroscopy to ensure that the wire was in the superior vena cava. Once this was done, then the needle trocar was removed. A small skin alexis was made with an 11 blade knife at the wire entrance site. The dilator with the introducer sheath attached was then placed over the wire into the right internal jugular vein via the Seldinger technique and this was visualized under fluoroscopy. The dilator and sheath were in proper position as visualized by fluoroscopy. A subcutaneous pocket was then created caudad to the catheter insertion site. A transverse skin incision was made after the skin and subcutaneous tissues were infiltrated with local anesthetic. Blunt dissection was then used to create a space large enough for placement of the subcutaneous port. The catheter was then tunneled into the subcutaneous pocket. The wire and dilator were then removed. The catheter was then threaded into the introducer sheath and was positioned with its tip at the junction of the superior vena cava and the right atrium as visualized under fluoroscopy. The excess catheter was transected. The catheter was then attached to the subcutaneous port using manufacturers guidelines. The catheter was flushed with a heparin saline mixture prior to placement. Hemostasis was carefully controlled with electrocautery. The port was sutured to the subcutaneous fascia using 2-0 Vicryl suture at two sites. The port was then placed in the subcutaneous pocket. The incision were reapproximated with interrupted subdermal 3-0 vicryl sutures. The skin was reapproximated with 3-0 nylon suture in a interrupted fashion. Steristrips were used for reinforcement of the skin closure at IJ insertion site and a sterile opsite dressings were applied. Next turned to aspiration of the right chest hematoma. Local anesthesia at the needle site was used. Ultrasound was used. Able to aspirate about 180 cc however there was a bit of clot. There seem to be more left and there and coming out of the needlestick then could coming out with the aspiration. The hole was only made slightly larger to allow a Guerrero tip suction and it was suctioned additional 80 cc with that. Right mastectomy incision flat with almost all of the hematoma evacuated. ABD was placed over the site along with Jose wrap. The patient tolerated the procedure well. Implants Used: Bard PowerPort isp M.R.I. 6Fr Lot [id number] Complications none
[2023-09-07 08:46] VITALS: BP 119/88; BP 124/68; PULSE 64; RESP 16; TEMP 36.2; O2SAT 100
[2023-09-07 08:50] VITALS: BP 119/88; BP 137/96; PULSE 61; RESP 16; O2SAT 99
--- NOTE | 2023-09-07 08:50 | RAD_ITS ---
STUDY: X-RAY CHEST REASON FOR EXAM: Female, 43 years old. Port -- PORTABLE PACU TECHNIQUE: Single AP portable view of the chest. COMPARISON: Comparison is made with prior study dated May 26, 2022. FINDINGS: A right-sided portacatheter has been placed. The tip is in the proximal portion of the superior vena cava. The lungs are clear and expanded. There is no demonstrated pleural abnormality. Normal size heart. Normal mediastinum and nelida. Normal visualized pulmonary arteries. Normal visualized aortic arch and descending thoracic aorta. Normal visualized thoracic spine. Normal visualized ribs, clavicles, and shoulders. There is no demonstrated abnormality of the visualized soft tissue structures of the upper abdomen. RAD/Chest 1 View (Portable) IMPRESSION: A right-sided julita catheter has been placed. The tip is in the proximal portion of the superior vena cava. Electronically Signed: Greyson Waters MD at 9:05 EDT ,
[2023-09-07 08:55] VITALS: BP 119/88; BP 131/57; PULSE 54; RESP 16; O2SAT 100
[2023-09-07 09:00] VITALS: BP 119/88; BP 96/65; PULSE 55; RESP 16; TEMP 36.3; O2SAT 100
[2023-09-07 09:32] VITALS: BP 119/88
== END 2023-09-07 09:37 | disposition home or self-care (01) ==
LOC: SDC 05:53 → AC 05:53
PROVIDERS: Anesthesiology; PCP Family Medicine; Referring Provider Surgery; Visit Provider Surgery
PROC: (CPT 36561; principal; 2023-09-07 07:15)
DX: Z45.2 Encounter for adjustment and management of vascular access device (principal); C50.912 Malignant neoplasm of unspecified site of left female breast; Z87.891 Personal history of nicotine dependence
CPT/HCPCS: 36561; 21501; 00532; 71045; 77001; 81025; J7120; A4216; J2405

== ENCOUNTER 2023-10-04 12:54 | Outpatient (RCR) | payer BC, SELFPAY ==
--- NOTE | 2023-10-05 07:20 | HP.OTEVAL ---
Patient's Visit Information Visit Information Visit Information: MARY ANN SHRESTHA is a 43 year old F, referred to Occupational Therapy by Dr. Queenie Banerjee MD, with a diagnosis of breast cancer /lymphedeam. Date of Evaluation: 10/04/23 Occupational Therapist: Eve Somers, BUTCH/Pedrito, CHT Subjective Subjective: This 43 year old female was seen for OT eval with dx of Lymphedema- Dx July 19 2023 - as she went to her dr due to painful axillary lymph nodes Sx August 21 2023 - 20 lymph nodes removed/ and 18 positive. pt states she is feeling well- no noted limited ROM- pt states she will have 5 weeks of daily pt has been through 2 sets of chemo- will have radiation following her Chemo 2 drug 4 weeks and than another round of two different drugs for another 4 weeks- pt will have radiation at some. pt states she feels her ROM is good and at this time no signs of swelling that she is aware of. Lymphedema (Circumferential Measure) MCP: right 20cm left 20cm Wrist: right 16cm left 16cm Lower forearm: right 21.5cm left 21.5cm Largest forearm: right 26cm left 27cm Elbow: right 25cm left 26.5cm Largest humerus: right 31cm left 32cm Axcillary: right 35cm left 35cm Upper Exremity Comments: pt right handed Quick DASH-Disab of Arm,Shoulder& Hand Quick DASH Score: 15.0000 Goals Goal: Patient will demonstrate adequate knowledge of self-bandaging by the end of the first week.: Yes Goal: Patient will demonstrate adequate knowledge of self-massage by the end of the second week.: Yes Goal: Patient will demonstrate adequate knowledge of skin care and precautions by the end of the first week.: Yes Goal: Patient will demonstrate adequate knowledge of therapeutic exercises by discharge.: Yes Goal: Patient will select an appropriate compression garment and demonstrate adequate knowledge of correct donning technique, care and wearing schedule by discharge.: Yes Goal: Patient will voice understanding of need to replace compression garment every four to six months by discharge.: Yes Rehabilitation General Assessment: PT arrives following a double mastectomy - and risk of developing lymphedema- pt demo need of skilled OT services 2-3 visits to ed. pt on lymphedema signs, symptoms and precautions. Today therapist ed. pt on skin integrity and scar mt for her mastectomy incisions. ed. pt on lymphedema signs and symptoms, precautions and skin care- therapist also ed. pt on lymphedema ROM ex, along with Self manual lymph massage- pt was given handouts on ec. skin care and signs, symptoms of infection/lymphedema- pt demo understanding- therapist ed. pt on posture . Pt would cont. to benefit from further ed. on stretching/ strengthening and mtg of lymphedema. pt demo understanding and agrees to POC. Rehabilitation Potential: Excellent Anticipated Interventions Anticipated Interventions: A/AAROM/PROM, Scar Care, Desensitization, Sensory Retraining, Education re assistive Equipment, Education re Diagnosis, Education re Life-long lymphedema Management, Education re Skin Care and Precautions, Education re Correct Donning Tech,Care&Wearing Sched Comp Garments, Caregiver Training and Home Program Visit Plan TEXT: Thank you for the opportunity to evaluate your patient. For Medicare and Medicare HMO plans, please review the plan of care and approve it. It will need to be FAXED BACK to us at [phone] for Medicare purposes. Please let me know if there are questions or concerns regarding this plan of care. Physician Signature: Date:
== END 2023-10-04 19:00 | disposition home or self-care (01) ==
LOC: OT 12:54
PROVIDERS: PCP Family Medicine; Referring Provider Surgery; Visit Provider Surgery
DX: I89.0 Lymphedema, not elsewhere classified (principal); Z98.890 Other specified postprocedural states
CPT/HCPCS: 97166; 97530

== ENCOUNTER → 2024-01-31 | Outpatient (CLI) | payer BC, SELFPAY ==
--- NOTE | 2024-01-31 15:43 | US_ITS ---
STUDY: ULTRASOUND OF THE FEMALE PELVIS - COMPLETE REASON FOR EXAM: Female, 43 years old. Pelvic pain LMP: October 2023. TECHNIQUE: Transabdominal and Transvaginal TECHNICAL QUALITY: Adequate. COMPARISON: Comparison is made with prior study dated May 04, 2018. FINDINGS: The uterus is anteverted and is in a midline position. The uterus is enlarged and measures 10.1 cm x 5.5 cm x 4.3 cm. There is a Nabothian cyst of the cervix. The endometrium measures 2.3 mm in thickness, and is hyperechoic. There is no demonstrated endometrial mass. There are 2 small fibroids. The larger measures 1.3 cm x 1 cm x 1 cm. The myometrium has a heterogeneous appearance. I.U.D. - The patient does not have an I.U.D. The right ovary is visualized. The right ovary measures 3.3 cm x 1.4 cm x 2 cm. There is no right ovarian cyst or ovarian mass. There is no visualized right adnexal mass or complex lesion. There is normal arterial and normal venous vascularity. The left ovary is visualized. The left ovary measures 2.6 cm x 1.7 cm x 1.6 cm. There is no left ovarian cyst or ovarian mass. There is no visualized left adnexal mass or complex lesion. There is normal arterial and normal venous vascularity. There is no fluid in the cul-de-sac. The pre void volume of the bladder was 348 ml. US/Pelvic w/ Transvaginal IMPRESSION: Enlarged fibroid uterus. Electronically Signed:
== END | disposition home or self-care (01) ==
LOC: US 15:36
PROVIDERS: PCP Family Medicine; Referring Provider Obstetrics & Gynecology; Visit Provider Obstetrics & Gynecology
DX: C50.912 Malignant neoplasm of unspecified site of left female breast (principal); N63.20 Unspecified lump in the left breast, unspecified quadrant; Z17.0 Estrogen receptor positive status [ER+]
CPT/HCPCS: 76830; 76856

== ENCOUNTER 2024-03-19 10:12 | Day surgery (SDC) | payer BC, SELFPAY ==
--- NOTE | 2024-03-07 08:00 | EKG12_ITS ---
Test Reason : PRE OP Blood Pressure : / mmHG Vent. Rate : 069 BPM Atrial Rate : 069 BPM P-R Int : 142 ms QRS Dur : 088 ms QT Int : 406 ms P-R-T Axes : 057 055 056 degrees QTc Int : 435 ms Normal sinus rhythm Normal ECG Confirmed by JON WHITMORE, CALLUM ([id number]), copy editor SHERMAN SON ([id number]) on 03/07/2024 2:09:39 PM Referred By: iD Rios Confirmed By:CALLUM WEBB MD
[2024-03-07 08:37] LABS: Hematocrit 39.2 % (37-47); Hemoglobin 12.6 g/dL (12.0-15.0); Mean Corp Hgb Conc 32.1 g/dL (32-36); Mean Corpuscular Hgb 26.7 pg (27.0-32.0); Mean Corpuscular Volume 83.1 fL (81-99); Mean Platelet Vol. 8.1 fl (6.2-12.0); Platelet Count 304 K/mm3 (150-450); RBC Distribution Width CV 13.4 % (11.6-14.6); RBC Distribution Width SD 40.8 fl (35.1-43.9); Red Blood Count 4.72 M/mm3 (4.2-5.4)
[2024-03-19] VITALS (13 sets, daily range): BP systolic 121–151; BP diastolic 65–94; PULSE 48–95; RESP 14–18; TEMP 35.9–36.3; O2SAT 83–100; BMI 36.1
[2024-03-19 10:48] LABS: Internal QC Validated? YES +Cl - CLEAR BKGD; Pregnancy, Urine Negative Negative
[2024-03-19] MEDS: Enoxaparin 40 MG/0.4 ML Syringe SC (10:51)
[2024-03-19] MEDS: Lactated Ringers 1,000 ML 15 ML IV (10:51)
[2024-03-19 11:01] LABS: Hematocrit 36.7 % (37-47); Hemoglobin 12.2 g/dL (12.0-15.0); Mean Corp Hgb Conc 33.2 g/dL (32-36); Mean Corpuscular Volume 81.2 fL (81-99); Mean Platelet Vol. 8.4 fl (6.2-12.0); Platelet Count 284 K/mm3 (150-450); RBC Distribution Width CV 13.5 % (11.6-14.6); RBC Distribution Width SD 39.6 fl (35.1-43.9); Red Blood Count 4.52 M/mm3 (4.2-5.4); White Blood Count 4.9 K/mm3 (4.4-11.0)
--- NOTE | 2024-03-19 11:10 | PCM.PRE.AN2 ---
ASA Classification* ASA Classification ASA Classification: 3 Assessment & Plan Anesthesia* Anesthesia Assessment Anesthesia Assessment: Discussed sedation and/or anesthesia options, risks, benefits, and alternatives with patient/parents/legal guardian/POA. Questions invited. The patient/parents/legal guardian/POA seems to understand and agrees to proceed with anesthesia plan. Reviewed the physical assessment, medical history, allergy history and patient home medications list prior to surgery/procedure/anesthetic and documented any changes. Performed airway and anesthesia risk assessments. Anesthesia Type Anesthesia Type: General History Source History Obtained from:: Patient and Chart Anesthesia Focused Assessment* Temperature: 96.8 F Pulse Rate: 62 Blood Pressure: 130/74 Respiratory Rate: 16 Pulse Ox: 98 Airway Assessment Mouth opens: >3 cm Mallampati Score: II Teeth Condition: Intact Neck Range of motion (ROM): Full ROM Focused Labs Anesthesia Preop lab: CBC WBC 4.9 K/mm3 (4.4-11.0) 03/19/24 10:45 RBC 4.52 M/mm3 (4.2-5.4) 03/19/24 10:45 Hgb 12.2 g/dL (12.0-15.0) 03/19/24 10:45 Hct 36.7 % (37-47) L 03/19/24 10:45 Plt Count 284 K/mm3 (150-450) 03/19/24 10:45 CHEMISTRY Potassium 4.1 mmol/L (3.5-5.1) 08/22/23 06:41 Sodium 138 mmol/L (136-145) 08/22/23 06:41 BUN 13 mg/dL (7-18) 08/22/23 06:41 Creatinine 0.79 mg/dL (0.55-1.02) 08/22/23 06:41 Glucose 110 mg/dL (74-106) H 08/22/23 06:41 TSH 2.54 uIU/mL (0.358-3.74) 05/26/22 11:35 COAG HCG, Quant < 1 mIU/mL (<9 non-preg) 04/25/18 15:48 Urine Test Negative Negative 03/19/24 10:30 Pre-Assessment Diagnosis/Proposed Procedure Planned Operative Procedure(s): (B) Laparoscopic, Salpingo-oopherectomy Anesthesia History 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 STATES NO PROBLEMS 03/05/24 11:10 AFTER 08/24/23 SURGERY Cholinesterase deficiency No 03/05/24 11:10 You/Your Family Experience No 03/05/24 11:10 fever (hyperthermia) with Relationship Recent Exposure to Contagious No 03/19/24 10:41 Disease Does patient have nerve No 03/05/24 11:10 stimulator Patient instructed to have device shut off --Does patient have Pacemaker No 03/19/24 10:41 or ICD? When Was Last Pacemaker Check QUESTION #4 FULL TEXT: You/Your Family Experience fever (hyperthermia) with Anesthesia Any additional information?: No Last Oral Intake Last Oral intake: Last Oral Intake NPO since 00:00 03/19/24 10:41 Meds taken in AM with sips of No 03/19/24 10:41 water? 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 Female Yes 03/05/24 11:10 HX of Motion Sickness Yes 03/05/24 11:10 HX of N/V After Surgery Yes 03/05/24 11:10 Non-Smoker Yes 03/05/24 11:10 Duration of Surgery greater Yes 03/05/24 11:10 than 60 minutes Number of Risk Factors 5 03/05/24 11:10 PONV Score Severe Risk 03/05/24 11:10 Any additional information?: No Height & Weight Height & Weight: Anesthesia: Height & Weight Height 5 ft 3 in 03/19/24 10:41 Weight: 92.533 kg 03/19/24 10:41 Body Mass Index (BMI) 36.1 03/19/24 10:41 Respiratory Assessment Respiratory Assessment - landfill gas collection operator: Respiratory Tract Infection Hx - 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 Has anyone observed you stop No 03/05/24 11:10 breathing during sleep? STOP Results Negative 03/05/24 11:10 QUESTION #5 FULL TEXT : Do you snore loudly (louder than talking or can be heard through closed doors)? 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 Specify any problems Hx of Preganancy in last 3 No 03/05/24 11:10 Months Nurse Filling Out Transfusion VCHRISTIN 03/05/24 11:10 & Questions: Date: 03/05/24 03/05/24 11:10 Time: 11:11 03/05/24 11:10 Patient unable to answer at this time (ie. 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: /Reproductive Hx- landfill gas collection operator Hx Now Gestational Age (in weeks): EDC: Hx Hx Para Hx Section SAB No 03/05/24 15:59 Any additional information?: No Active Medications Active Medications: Current Medications Generic Name Dose Route Start Last Admin Trade Name Freq PRN Reason Stop Dose Admin Enoxaparin Sodium 40 mg 03/19/24 11:55 03/19/24 10:51 Enoxaparin 40 Mg/0.4 Ml Syringe SC 03/19/24 11:56 40 mg PREOP ONE Administration Lactated Ringer's 1,000 mls @ 15 mls/hr 03/19/24 10:30 03/19/24 10:51 IV 03/24/24 23:49 15 mls/hr .Q48H MORAIMA Administration Protocol [facility] Medical History Estrogen receptor positive status (ER+) Invasive ductal carcinoma of breast Port-A-Cath in place Fluid retention Wears contact lenses Wears glasses History of steroid therapy Former smoker Hx 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 Breast mass, left Lipoma Enlarged lymph nodes in armpit Anxiety Hypertension Headache, migraine Home Medications ?Medication ?Instructions ?Recorded ?Last Taken ?Type lidocaine-prilocaine 2.5 %-2.5 % 1 applic topical PRN PRN PORT 09/05/23 Unknown History topical cream rimegepant 75 mg disintegrating 75 mg PO PRN PRN migraine 03/05/24 03/19/24 History tablet (Nurtec ODT) rizatriptan 10 mg tablet 10 mg PO PRN migraine 03/05/24 Unknown History Allergy/AdvReac Type Severity Reaction Status Date / Time No Known Allergies Allergy Verified 03/19/24 10:33 Surgical History Hx of surgical procedure S/P evacuation of hematoma S/P bilateral mastectomy History of lymph node dissection of left axilla Hx of lymph node biopsy Hx of breast biopsy S/P tonsillectomy S/P excision of ganglion cyst Social History adopted: Yes (adopted by stepfather) household members: family number of children: 3 current occupational status: employed current occupation: [employer] current occupational exposures/hazards: No sexually active: Yes Smoking Status: Former smoker alcohol intake: never substance use type: does not use seatbelt use: always do you feel safe at home: Yes 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
--- NOTE | 2024-03-19 11:15 | OV_PTH ---
PATHOLOGY RESULTS PATIENT: MARY ANN SHRESTHA [place] [facility] [id number] AGE/SX: 43/F ROOM: RE03/19/[address]: Dr. Di Rios MD : 1980 BED: DIS: 03/19/2024 SPEC #: [id number] RECD: 03/19/24 16:36 STATUS: SALLY HU #: [id number] MARILIA: 03/19/24 11:[address]: Di Rios DEPT: SURGICAL PATHOLOGY RECD BY: Jose M Samuels ENTERED: 03/20/24 10:05 SP TYPE: OVARY OTHR DR: Dr. Mynor Hernández MD Tissues: Ovary, NOS Procedures: Surgery Specimen Level IV HEADER OPERATION: Laparoscopic salpingo-oopherectomy PRE-OP DIAGNOSIS: Estrogen receptor positive status, invasive ductal carcinoma of breast TISSUE SUBMITTED: Bilateral fallopian tubes and ovaries MICROSCOPIC DIAGNOSIS Bilateral fallopian tubes and ovaries, salpingo-oopherectomy: Bilateral fallopian tubes- no pathologic diagnosis. One ovary- Simple benign epithelial cyst (0.3cm in greatest dimension). Second ovary- No pathologic diagnosis. SETH. 03/21/2024 MICROSCOPIC DESCRIPTION Slides are reviewed. GROSS DESCRIPTION Received in fixative is one container labeled with the patient's name and designated bilateral fallopian tubes. The specimen consists of bilateral fallopian tubes and adjacent ovaries. They are not identified as right or left. One of the fallopian tube measures 5.0cm in length and 0.6cm in diameter. Fimbrial is identified. No tubovarian adhesions are noted. Adjacent ovary measures 3.2 x 2.5 x 1.4cm. Sections do not reveal any mass lesions. Second fallopian tube is also similar in appearance to the first fallopian tube and measures 4.0cm in length and 0.6cm in diameter. Second adjacent ovary has similar appearance to the first one and measures 3.5 x 2.5 x 2.0cm. Sections do not reveal any mass lesions. Law Examiner sections are submitted in six cassettes as follows: 1-3 one fallopian tube and ovary (1-fallopian tube, 2&3- ovary), 4-6- second fallopian tube and ovary (4, fallopian tube, 5&6- ovary). 03/20/2024 TC:[id number]
--- NOTE | 2024-03-19 13:08 | HP.PCM_ITS ---
History and Physical Intake Vital Signs 01/23/2409:54 02/19/2408:07 03/05/2415:56 Height 5 ft 3 in 5 ft 3 in 5 ft 3 in Weight: 205 lb 7 oz 204 lb BMI 36.3 36.1 BP 127/87 H 132/83 H Blood Pressure Location Rt brachial Position Sitting Respiration 16 Pulse 81 Pulse Source Monitor Temp 97.4 F L Temperature Source Temporal Artery Pulse Oximetry (%) 96 Oxygen Delivery Method room air Intake Visit Reasons: BSO Machines Technician Required: No Is patient in pain?: No Feel stressed/tense/nervous/anxious/difficulty sleeping: not at all Allergies No Known Allergies Allergy (Verified 03/05/24 15:58) Medications ?Medication ?Instructions ?Recorded ?Confirmed ?Type lidocaine-prilocaine 2.5 %-2.5 % 1 applic topical PRN PRN PORT 09/05/23 03/05/24 History topical cream rimegepant 75 mg disintegrating 75 mg PO PRN PRN migraine 03/05/24 03/05/24 History tablet (Nurtec ODT) rizatriptan 10 mg tablet 10 mg PO PRN migraine 03/05/24 03/05/24 History Is last menstrual period known: Yes Last Menstrual Period: 10/30/23 Post menopausal: No Patient : No : No Control Method: no control PFSH Medical History Estrogen receptor positive status (ER+) Invasive ductal carcinoma of breast Port-A-Cath in place Fluid retention Wears contact lenses Wears glasses History of steroid therapy Former smoker Hx 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 Breast mass, left Lipoma Enlarged lymph nodes in armpit Anxiety Hypertension Headache, migraine Surgical History Hx of surgical procedure S/P evacuation of hematoma S/P bilateral mastectomy History of lymph node dissection of left axilla Hx of lymph node biopsy Hx of breast biopsy S/P tonsillectomy S/P excision of ganglion cyst Social History adopted: Yes (adopted by stepfather) household members: family number of children: 3 current occupational status: employed current occupation: [employer] current occupational exposures/hazards: No sexually active: Yes Smoking Status: Former smoker alcohol intake: never substance use type: does not use seatbelt use: always do you feel safe at home: Yes 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 she started chemo September 14. In November she stopped having a cycle, she has a history of heavy painful menses. she previously used an IUD for cycle regulation. she had to have the IUD removed due to the breast cancer. she has had a bilateral mastectomy. she is CHEK2 positive which does not increase her risk for uterine cancer. it was recommended by her oncologist to have her ovaries removed. Female Reproductive History Last Menstrual Period: 10/30/23 Menopausal Symptoms: No night sweats History 3 Elective abortions Hx Para 3 Spontaneous abortions Hx # Term Pregnancies Ectopic pregnancies Hx # Pregnancies Multiple births # of living children 3 Past Pregnancies Del. Date Name GA/Weeks Outcome Route Bth Weight Infant Gen Labor Lgth Anesthesia Del Locatn Provider FOB Unknown Tatumn Unknown Rileigh Unknown [place] ROS Const Constitutional: Denies fatigue, night sweats, weight gain or weight loss ENT ENT: Reports system reviewed and no additional complaints, except as documented Cardio Card: Denies chest pain Resp Resp: Denies cough or dyspnea GI GI: Reports as per HPI; Denies abdominal pain, constipation, nausea or vomiting : Denies nipple discharge, urinary frequency, urinary incontinence, urinary hesitancy, urinary urgency, vaginal discharge, vaginal dryness, vaginal odor or vaginal pruritus Musc Musc: Denies arthralgias, back pain or muscle weakness Skin Skin/Breast: Denies alopecia, change in hair, dry skin, breast mass, breast pain, breast skin changes or nipple discharge Neuro Neuro: Reports system reviewed and no additional complaints, except as documented Psych Psych: Reports system reviewed and no additional complaints, except as documented Endo Endo: Denies cold intolerance, excessive sweating, heat intolerance or polydipsia [place]/Lymph Hematologic/Lymphatic: Denies easy bleeding, Denies easy bruising and Denies lymphadenopathy Exam Const General: cooperative, healthy appearing, comfortable and no acute distress Orientation: alert HENMT Head: normal to inspection and normocephalic Ears: hearing grossly normal bilaterally and external ears normal Nose: external nose normal and nares normal Face and sinus: normal facial exam Neck Neck: normal visual inspection and no lymphadenopathy Thyroid: thyroid normal Chest Chest palpation & inspection: normal inspection of the chest Resp Effort & Inspection: normal respiratory effort Auscultation: clear to auscultation bilaterally Cardio Rate: regular rate Rhythm: regular rhythm Heart Sounds: S1 normal and S2 normal GI Inspection: normal to inspection and non-distended Palpation: soft and no hepatosplenomegaly Musc Other: gross motor intact no deficits, full bilateral strength Skin General: no rashes or lesions noted Neuro General: patient alert, patient awake, moves all extremities and no focal motor deficits Motor: muscle tone normal throughout Extrem General: normal to inspection and no pedal edema Psych Appearance: grossly normal Mental Status: mental status grossly normal Affect: normal affect Speech and Movement: speech and movement normal Coding Level of Care Code No Charge Diagnoses Estrogen receptor positive status (ER+) Z17.0 Invasive ductal carcinoma of breast C50.919 Assessment and Plan Assessment and Plan (1) Estrogen receptor positive status (ER+): Status: Acute (2) Invasive ductal carcinoma of breast: Status: Acute Comment: recommend laparoscopic BSO. pelvic US ordered preop Plan After discussing the patient's diagnosis and treatment plan options, patient wishes to proceed with surgical management. I have discussed with the patient the risks, benefits, and alternatives of the procedure which include but are not limited to risks of anesthesia, bleeding, infection, possible damage to bowel, bladder, or surrounding vasculature which could lead to additional surgery to evaluate any complications. Patient agrees to procedure and wishes to proceed. ACOG/uptodate references given for additional information regarding procedure. UPDATE- I have seen the patient and performed any clinically relevant updates to the history and physical exam. Di Rios MD
[2024-03-19] MEDS: Bupivacaine 0.25% 30 ML Vial (13:30)
--- NOTE | 2024-03-19 14:16 | OP.PCM_ITS ---
Problems Associated Problem List Diagnoses (1) Invasive ductal carcinoma of breast: (2) Estrogen receptor positive status (ER+): (3) Invasive ductal carcinoma of left breast: (4) S/P BSO (bilateral salpingo-oophorectomy): Operative Report (Standard) Operative Information Surgery/Procedure Performed: laparoscopic bilateral salpingo-oophorectomy Surgeon: Di Rios Date of Procedure: 03/19/24 Procedure Start Time: 14:49 Procedure Stop Time: 15:18 Pre-Operative Diagnosis: see problem list and details Post-Operative Diagnosis: same Select all DRAINS/GRAFTS/IMPLANTS that apply: None Type of Anesthesia: General Estimated Blood Loss: 50 Specimen collected: Yes Description of specimen(s) removed: bilateral tubes and ovaries Description of surgery: Patient was taken in the operating room and was placed under general anesthesia was prepped and draped in normal sterile fashion in the dorsal lithotomy position. Bladder was drained of clear urine and SCDs were on preoperatively. Uterus was sounded and a uterine manipulator was placed after dilating. Attention was then paid to the abdominal portion of the procedure and the umbilicus was elevated with towel clamps and injected with Marcaine and after a 12 mm incision was made and the Veress needle was entered into the abdomen confirmed to be intra-abdominal with a low opening pressure of less than 5 mmHg. Abdomen was insufflated with CO2 gas and a 12 mm optical trocar was placed under direct visualization. A right and left lower quadrant 5 mm ports were placed under direct visualization. Uterus was well visualized and bilateral fallopian tubes and ovaries were identified and the infundibulopelvic ligaments were transected across using the LigaSure device followed by transecting across the mesosalpinx to the attachment to the uterine corpus bilaterally the tubes and ovaries were removed without complication. Excellent hemostasis was noted. Fallopian tubes and ovaries were removed through the 12 mm port site without complication. Liver and upper abdomen were visualized notably within normal limits and no other gross abnormalities were seen in the abdomen. 12 mm port site fascial incision was closed with a luciana orantes under direct visualization using an 0 vicryl. Then all instruments were removed from the abdomen after gas was desufflated. Port sites were closed with 3-0 Monocryl and Steri's and op sites were applied. All instruments removed from the vagina and patient was awoken and taken recovery in stable condition. Surgical Findings: normal tubes and ovaries, abdomen. Assistant Softball Coach core java engineer: Yes Grease Refiner Operator: Usama Philip Tasks completed by registered medical assistant: Opening, Closing and Retracting Complications Complications: No Multi Select Codes Urinary/Genital Urinary/Genital CPT Codes: 32574 Laproscopic BS/O
--- NOTE | 2024-03-19 14:22 | DCINST_ITS ---
Discharge Instructions Diet Discharge Diet: No restrictions Activity Discharge Activity: Return to Normal Activity, May Not Drive ( while taking narcotic pain meds, when pain free), May Shower and May Take a Tub Bath (in 7 days) May resume sexual activity in: 1 week Weight Bearing Status: Full weight bearing Dressing / Incision Call your doctor if your incision/area has: Continuous Slow Oozing, Sudden Increased Bleeding, Increased Pain/ Swelling, Increased Redness and Foul Smelling Discharge Call your doctor if you observe: Fever of 101 or Higher, Using more than 1 pad per hour, Shortness of breath, Chest pain and Uncontrolled pain Suture Line Care: Avoid Pulling/Pushing and Avoid Pinching/Bending Remove Dressing in: 1 week (if present) Cleanse incision/area with: Soap & Water and Keep Dressing Clean & Dry Follow Up Care When: Call to make an appointment with your doctor for a fu/incision check in 1- 2 weeks. Test Results: Test results from this visit will be discussed in further detail at your follow- up appointment, if applicable. Discharge Plan Admission Attending Provider: Di Rios Primary Care Provider: Mynor Hernández Instructions Print Language: Mexican Discharge Orders/Prescriptions Prescriptions: New oxycodone-acetaminophen [Percocet] 5-325 mg tablet 1 tab PO Q6H PRN (Reason: pain) 7 Days Qty: 10 0RF naproxen 500 mg tablet 500 mg PO BID PRN PRN (Reason: Pain) Qty: 30 1RF No Action Nurtec ODT 75 mg tablet,disintegrating 75 mg PO PRN PRN (Reason: migraine) rizatriptan 10 mg tablet 10 mg PO PRN lidocaine-prilocaine 2.5-2.5 % cream 1 applic topical PRN PRN (Reason: PORT) Referrals / Follow Up: Mynor Hernández MD [Primary Care Provider] - Disposition Disposition (needs filled in before D/C Order can be placed): Home, Self Care
--- NOTE | 2024-03-19 15:31 | PCM.POST.ANE ---
Anesthesia: Postop Eval I Current Vital Signs Temperature: 97.4 F Pulse Rate: 95 Blood Pressure: 141/87 Respiratory Rate: 16 Pulse Ox: 90 Oxygen Delivery Method: Room Air Assessment Airway patent: Yes Spontaneous unlabored respirations: Yes Mental status: Awake nausea: No Vomiting: No Anesthesia Complication: No Fluid Hydration Crystalloid volume administer (ml): 600 Total IV fluid infused: 600 Progress Note Anesthesia document: Postop Eval 1 completed: Yes
[2024-03-19] MEDS: Ondansetron 4 MG/2 ML Vial IM (15:52)
--- NOTE | 2024-03-19 16:31 | POSTOPAN2_ITS ---
Anesthesia Postop Eval I Sum Postop Eval Completion status Anesthesia document: Postop Eval 1 completed: Yes Anesthesia Postop Eval I Summary Anesthesia Postop Eval I Summary: Anesthesia Postop Eval I: Assessment Summary Airway patent Yes 03/19/24 15:32 [employer]AMPING [email or web address] Spontaneous unlabored Yes 03/19/24 15:32 [employer]AMPING [email or web address] respirations Mental status Awake 03/19/24 15:32 STAMPING [email or web address] nausea No 03/19/24 15:32 [employer]AMPING [email or web address] Vomiting No 03/19/24 15:32 STAMPING [email or web address] Anesthesia Postop Eval I: Fluid Summary Crystalloid volume administer 600 03/19/24 15:32 STAMPING [email or web address] (ml) Colloids volume administered ( ml) Blood Product volume administered (ml) Total IV fluid infused 600 03/19/24 15:32 STAMPING [email or web address] Anesthesia Postop Eval I: Summary Notes Anesthesia Complication No 03/19/24 15:32 STAMPING [email or web address] Anesthesia Complication Comment: Post-operative progress note Anesthesia: Postop Eval II Evaluation Mental status: Awake Pain Level: 0 nausea: No Vomiting: No
--- NOTE | 2024-03-19 16:31 | PCM.POSTANE2 ---
Anesthesia Postop Eval I Sum Postop Eval Completion status Anesthesia document: Postop Eval 1 completed: Yes Anesthesia Postop Eval I Summary Anesthesia Postop Eval I Summary: Anesthesia Postop Eval I: Assessment Summary Airway patent Yes 03/19/24 15:32 WEBSITE [employer]IMIZATION [email or web address] Spontaneous unlabored Yes 03/19/24 15:32 WEBSITE OPTIMIZATION [email or web address] respirations Mental status Awake 03/19/24 15:32 WEBSITE OPTIMIZATION STRATEGIST.JDEF nausea No 03/19/24 15:32 WEBSITE OPTIMIZATION STRATEGIST.[email or web address] Vomiting No 03/19/24 15:32 WEBSITE OPTIMIZATION [email or web address] Anesthesia Postop Eval I: Fluid Summary Crystalloid volume administer 600 03/19/24 15:32 WEBSITE OPTIMIZATION [email or web address] (ml) Colloids volume administered ( ml) Blood Product volume administered (ml) Total IV fluid infused 600 03/19/24 15:32 WEBSITE OPTIMIZATION [email or web address] Anesthesia Postop Eval I: Summary Notes Anesthesia Complication No 03/19/24 15:32 WEBSITE OPTIMIZATION [email or web address] Anesthesia Complication Comment: Post-operative progress note Anesthesia: Postop Eval II Evaluation Mental status: Awake Pain Level: 0 nausea: No Vomiting: No
[2024-03-19] MEDS: HYDROcodone Bitartrate/Apap 5/325 Tablet PO (17:01)
== END 2024-03-19 18:00 | disposition home or self-care (01) ==
LOC: SDC 10:14 → AC 10:15
PROVIDERS: PCP Family Medicine; Referring Provider Obstetrics & Gynecology; Visit Provider Obstetrics & Gynecology
PROC: (CPT 58661; principal; 2024-03-19 11:40)
DX: C50.911 Malignant neoplasm of unspecified site of right female breast (principal); C50.912 Malignant neoplasm of unspecified site of left female breast; N83.209 Unspecified ovarian cyst, unspecified side; Z17.0 Estrogen receptor positive status [ER+]; Z87.891 Personal history of nicotine dependence
CPT/HCPCS: 58661; 00840; 36415; 81025; 85027; 86850; 86900; 86901; 88305; 93005; J7120; A4216; J2405

== ENCOUNTER → 2024-08-22 | Outpatient (CLI) | payer BC, SELFPAY ==
--- NOTE | 2024-08-22 06:58 | CT_ITS ---
PROCEDURE: CHEST WITH CONTRAST 08/22/2024 REASON FOR EXAM: TREATED BREAST CANCER, UNRESECTED ADENOPATHY TECHNIQUE: Prone and supine chest CT with intravenous contrast, high resolution CT (HRCT) protocol. Coronal and Sagittal reconstruction series were provided. CONTRAST: Isovue 370 VOLUME: 100 ML 18 gauge IV One or more dose reduction techniques were used (e.g., Automated exposure control, adjustment of the mA and/or kV according to patient size, use of iterative reconstruction technique). RADIATION DOSE SUMMARY: CTDlvol: 16.6 mGy DLP: 595.4 mGycm COMPARISON: None available FINDINGS: Hardware: None Lymph nodes: No lymphadenopathy Heart and Vasculature: The heart is normal in size. The great vessels are normal in size and caliber. No pericardial effusion. Lungs and Airways: Central airways are patent. No suspicious parenchymal abnormality. No dominant masses. Pleura: No pleural effusion or pneumothorax. Upper Abdomen: Partially visualized upper abdomen demonstrates no acute abnormality. There is a subcutaneous fluid collection within the right breast measuring 2.2 by 6.5 cm, likely representing postoperative seroma with superimposed infection not excluded. Bones: No aggressive osseous lesion. No acute fracture. CT/Chest WITH Contrast IMPRESSION: *Subcutaneous fluid collection within the right breast likely representing a po stoperative seroma with superimposed infection not excluded. *Otherwise, no acute pathology within the chest. Reading Location: [facility]
== END | disposition home or self-care (01) ==
LOC: CT 06:54
PROVIDERS: PCP Family Medicine; Referring Provider Student in an Organized Health Care Education/Training Program; Visit Provider Student in an Organized Health Care Education/Training Program
DX: C50.919 Malignant neoplasm of unspecified site of unspecified female breast (principal)
CPT/HCPCS: 71260; Q9967

== ENCOUNTER → 2025-01-27 | Outpatient (CLI) | payer BC, SELFPAY ==
[2025-01-27 10:39] LABS: PTHIN 33 pg/mL (11-61)
[2025-01-27 10:54] LABS: Anion Gap 11 (5-15); BUN 17 mg/dL (4-19); BUN/Creat Ratio 17.0 RATIO (10-20); Calcium,Total 9.7 mg/dL (7.6-11.0); Carbon Dioxide 23.4 mmol/L (21.0-32.0); Chloride 105 mmol/L (98-108); Cholesterol 175 mg/dL (<=200); Glucose 101 mg/dL (70-99); Low Density Lipoprotein Calc. 103 mg/dL; Magnesium 2.0 mg/dL (1.5-2.2); Potassium 4.0 mmol/L (3.3-5.1); Triglycerides 67 mg/dL; Very Low Density Lipoprotein 13 mg/dL (5-40); cholesterol:hdl ratio screen 2.98
== END | disposition home or self-care (01) ==
LOC: MTLAB 07:35
PROVIDERS: PCP Family Medicine; Referring Provider Family Medicine; Visit Provider Family Medicine
DX: Z13.220 Encounter for screening for lipoid disorders (principal); E83.52 Hypercalcemia
CPT/HCPCS: 36415; 80048; 80061; 83735; 83970; 84100; 84443